=== PATIENT | female | born 2000 | race Caucasian/White ===

== ENCOUNTER 2024-06-02 09:31 | Outpatient (OUT) | payer OTHER, SELFPAY ==
--- NOTE | 2024-06-02 09:34 | US_ITS ---
[address] [address] Patient Name: SORAIDA VALENCIA MRN: [id number] date: 2000 Sex: F Assigned Patient Location: [facility] Current Patient Location: [facility] Accession/Order Number: [id number] Exam Date: 06/02/2024 09:34 Report Date: 06/02/2024 11:25 At the request of: SARAH PEREIRA Procedure: US OB transvaginal EXAMINATION: US OB transvaginal HISTORY: MISSED MENSES COMPARISON: No relevant comparison available. FINDINGS: Dowd intrauterine gestation Gestational sac: 3.41 cm, 8 weeks 4 days CRL: 2.28 cm, 9 weeks 0 days Yolk sac: 4.5 mm Cervix: Closed, 3.4 cm The uterus is normal, anteverted, anteflexed The right ovary is normal measuring 2.5 x 1.5 x 2.9 cm. Normal color Doppler flow The left ovary is normal measuring 2.6 x 1.6 x 2.6 cm. Normal color Doppler flow Clinical age: 8 weeks 5 days Clinical KELLEY: 01/07/2025 Ultrasound age: 9 weeks 0 days Ultrasound KELLEY: 01/05/2025 US/US OB transvaginal IMPRESSION: Viable dowd intrauterine gestation measuring 9 weeks 0 days Electronically authenticated by: JIE JERNIGAN Date: 06/02/2024 11:25
== END 2024-06-02 09:32 | disposition home or self-care (01) ==
LOC: NOMS 09:31
PROVIDERS: PCP Family Medicine; Visit Provider Obstetrics & Gynecology
DX: Z34.91 Encounter for supervision of normal pregnancy, unspecified, first trimester (principal); Z3A.09 9 weeks gestation of pregnancy; N92.6 Irregular menstruation, unspecified
CPT/HCPCS: 76817

== ENCOUNTER 2024-07-11 16:25 | Outpatient (OUT) | payer OTHER, SELFPAY ==
--- OUTSIDE RECORDS SUMMARY | 2024-07-11 16:39 | XMS_ITS | CCD ---
Author Organization 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 Name Role Phone DR GIBSON GONZALES Attending Unavailable DR GIBSON GONZALES Consulting Unavailable DR GIBSON GONZALES Admitting Unavailable Cristina Selby Unavailable SARAH PERERIA Attending Unavailable Medications Current Medications Medication Drug Class(es) Dates Sig (Normalized) Sig (Original) amoxicillin 500 mg oral capsule (1 source) Penicillin-class Antibacterial Start: 02-28-2024 take 500 mg by mouth twice daily Amoxicillin Active 500 MG PO Twice daily 30 07February 28, 2024 12:00am dextromethorphan hydrobromide 15 mg / guaiFENesin 400 mg / pseudoephedrine hydrochloride 60 mg oral tablet (1 source) alpha-Adrenergic Agonist, Uncompetitive X-vqtlen-M-aspartat e Receptor Antagonist, Sigma-1 Agonist Start: 07-01-2023 take 1 tablet by mouth every six hours as needed for cough Capmist DM 60-15-400 MG 1 tablet Orally q6hrs prn congestion/cough for 7 days Jun, Active L Norgest/E.Estradiol-E. Estrad (Simpesse) 0.15 mg-30 mcg (84)/10 mcg (7) tablets,dose pack,3 month (1 source) Start: 02-28-2024 take 1 tablet by mouth once daily L Norgest/E.Estrad iol-E.Estrad (Simpesse) 0.15 mg-30 mcg (84)/10 mcg (7) tablets,dose pack,3 month Active 1 TAB PO Daily February 28, 2024 12:00am Problems Active Problems Problem Classification Problem Date Documented Da te Episodic/Chronic Gastrointestinal hemorrhage (1 source) Hematochezia; Translations: [Melena] Episodic Other upper respiratory infections (6 sources) Acute upper respiratory infection, unspecified; Translations: [Acute pharyngitis, unspecified] Onset: 08-21-2021 Episodic Past or Other Problems Problem Classification Problem Date Documented Da te Episodic/Chronic Unclassified (1 source) Suspected COVID-19 virus infection Z20.822 Results Test Name Value Interpretation Reference Range Facility No Panel InformationOrdered By: Connie Marmolejo on 02-28-2024 Quick Strep (POC) [facility] COVID/FLU RT-PCRon 3 SARS-CoV-2 (COVID-19) RNA STEVE+probe Ql (Unsp spec) Negative [facility] Other COVID/FLU RT-PCR Negative [facility] alike Other Quick Strepon 07-01-2023 S. pyogenes Org specific cx Ql (Throat) Negative [facility] Other Quick Strep [facility] Other RESPIRATORY PANEL PLUSon Adenovirus Not detected Normal NOT DETECTED [facility] Comment on above: Performed By: #### R SPLUS #### [facility] [address] [place] [address] Dr. Pedro Luis Luis B. Parapertusis Not detected Normal NOT DETECTED [facility] Comment on above: Performed By: #### R SPLUS #### [facility] [address] [place] [address] Dr. Pedro Luis Talbot. Pertussis Not detected Normal NOT DETECTED [facility] Comment on above: Performed By: #### R SPLUS #### [facility] [address] [place] [address] Dr. Pedro Luis Luis Chlamydia Pneumoniae Not detected Normal NOT DETECTED [facility] Comment on above: Performed By: #### R SPLUS #### [facility] [address] [place] [address] Dr. Pedro Luis Luis Coronavirus 229E Not detected Normal NOT DETECTED [facility] Comment on above: Performed By: #### R SPLUS #### [facility] [address] [place] [address] Dr. Pedro Luis Luis Coronavirus HKU1 Not detected Normal NOT DETECTED [facility] Comment on above: Performed By: #### R SPLUS #### [facility] [address] [address] [address] Pedro Luis Luis Coronavirus NL63 Not detected Normal NOT DETECTED [facility] Comment on above: Performed By: #### R SPLUS #### [facility] [address] [place] [address] Dr. Pedro Luis Luis Coronavirus OC43 Not detected Normal NOT DETECTED [facility] Comment on above: Performed By: #### R SPLUS #### [facility] [address] [place] [address] Dr. Pedro Luis Luis Influenza A H1 2009 Not detected Normal NOT DETECTED [facility] Comment on above: Performed By: #### R SPLUS #### [facility] [address] [place] [address] Dr. Pedro Luis Luis Influenza B Not detected Normal NOT DETECTED The [facility] Comment on above: Performed By: #### R SPLUS #### [facility] [address] [place] [address] Dr. Pedro Luis Luis Metapneumovirus Not detected Normal NOT DETECTED [facility] Comment on above: Performed By: #### R SPLUS #### [facility] [address] [place] [address] Dr. Pedro Luis Luis Mycoplas. Pneumoniae Not detected Normal NOT DETECTED [facility] Comment on above: Performed By: #### R SPLUS #### [facility] [address] [place] [address] Dr. Pedro Luis Luis Parainfluenza 1 Not detected Normal NOT DETECTED [facility] Comment on above: Performed By: #### R SPLUS #### [facility] [address] [place] [address] Dr. Pedro Luis Luis Parainfluenza 2 Not detected Normal NOT DETECTED [facility] Comment on above: Performed By: #### R SPLUS #### [facility] [address] [place] [address] Dr. Pedro Luis Luis Parainfluenza 3 Not detected Normal NOT DETECTED [facility] Comment on above: Performed By: #### R SPLUS #### [facility] [address] [place] [address] Dr. Pedro Luis Luis Parainfluenza 4 Not detected Normal NOT DETECTED [facility] Comment on above: Performed By: #### R SPLUS #### [facility] [address] [address] [address] Pedro Luis Luis Rhino/Enterovirus Not detected Normal NOT DETECTED [facility] Comment on above: Performed By: #### R SPLUS #### [facility] [address] [place] [address] Dr. Pedro Luis Luis RP2 Header 1 RESPIRATORY PANEL: VIRUSES Normal [facility] Comment on above: Performed By: #### R SPLUS #### [facility] [address] [place] [address] Dr. Pedro Luis Luis RP2 Header 2 RESPIRATORY PANEL: BACTERIA Normal [facility] Comment on above: Performed By: #### R SPLUS #### [facility] [address] [place] [address] Dr. Pedro Luis Luis RSV Not detected Normal NOT DETECTED [facility] Comment on above: Performed By: #### R SPLUS #### [facility] [address] [place] [address] Dr. Pedro Luis Luis SARS-CoV-2 (COVID-19) RNA STEVE+probe Ql (Unsp spec) Not detected Normal NOT DETECTED [facility] Comment on above: Performed By: #### R SPLUS #### [facility] [address] [place] [address] Dr. 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 HPI Staff Patient 21 yo female presents via telehealth with bronchitis Symptoms started- Wednesday Headache- yes Body aches- yes wednesday Earache- no Runny/stuffy nose- stuffy nose Problem with Smell- no Problem with Taste- no Sore throat- yes- no voice Cough- yes Scratchy tickly throat- no Chest symptoms- no BUCIO- SOB when talking alot due to no voice Orthopnea- no Lung Hx asthma, bronchitis, chest colds- exercise induced asthma Fever/chills- no GI symptoms-no COVID exposure- NO Pt took COVID test- negative Vaccinated- yes- pfizer today Treatment- sinus medication History of Present Illness Pt presents today for a video visit with symptoms of cough, headache, stuff nose, loss of voice, sore throat that started Wednesday. Pt took at home covid test today which was negative. Pt has been using generic OTC sinus medication for symptom relief. Pt denies known covid exposure, recent travel. Pt is currently vaccinated. Denies chest pain, fevers, signs of dehydration. Review of Systems Fatigue: no Body aches: no Chills: no Fever: no MARI: yes Nasal congestion: yes Rhinorrhea: yes Cough: yes, dry SOB: no Wheezing: no Sore throat: yes Ear pain: no Ear drainage: no Loss of taste or smell: no Nausea: no Vomiting: no Diarrhea: no Current or former smoker: no Underlying health conditions: no Known Covid exposure: no Physical Exam Vitals & Measurements HT: 169.0 cm HT: 169 cm WT: 68.4 kg WT: 68.4 kg BMI: 23.95 General: Well developed, well nourished, in no acute distress during video visit Eyes: sclera and conjunctiva clear Nose: congestion noted Lungs: Normal respiratory effort, cough noted with deep breaths Mouth: Mucous membranes moist. Skin: No rashes, ulcerations, or suspicious lesions on visible skin Mental Status: Alert and oriented x3. Normal mood and affect Assessment/Plan 1. Acute nasopharyngitis (common cold) (J00: Acute nasopharyngitis [common cold]) Discussed exam and hx are consistent with viral illness. Advised of typical duration. Discussed antibiotics unfortunately do not treat viral illnesses, it will take time to run course- usually 7-14 days. Fluids/rest encouraged, PRN tylenol/ibuprofen for any pain, cool mist humidification, throat lozenges, salt water gargles as needed. May use rx of [place] for symptomatic tx. Follow up with PCP if not improving over next 7 days or significantly worsening symptoms. Parent verbalized understanding and is agreeable with tx plan. This visit was conducted via two-way, real-time interactive video communications from my office using Ansible due to the restrictions of the COVID-19 pandemic. No physical exam was conducted other than those areas of the body visible to telecommunications with the patient located at [address] [place] [phone], with spouse in attendance. If it is determined that the patient should be evaluated in the clinic, the patient will be directed to the appropriate clinic or venue. The patient or their guardian verbally consented to this visit. Total time spent preparing the chart, conducting the encounter with the patient and family, and time spent documenting, reviewing, and ordering tests was 10 minutes. Ordered: dextromethorphan-pyri ria, 20 mL, Oral, q8hr for 5 day(s), 300 mL, Refill(s) 0, [facility] #72, 169, cm, 08/20/21 17:56:00 EST, Height/Length Dosing, 68.4, kg, 08/20/21 17:56:00 EST, Weight Dosing 2. Cough (R05.9: Cough, unspecified) See above treatment plan Ordered: dextromethorphan-pyri ria, 20 mL, Oral, q8hr for 5 day(s), 300 mL, Refill(s) 0, [facility] #72, 169, cm, 08/20/21 17:56:00 EST, Height/Length Dosing, 68.4, kg, 08/20/21 17:56:00 EST, Weight Dosing Follow-up With When Contact Information Aydee Munoz, MARCELL Only if needed Additional Instructions: Patient Education Cool Mist Vaporizer Problem List/Past Medical History Ongoing No chronic problems Historical No qualifying data Medications [place] DM 7.5 mg-7.5 mg/5 mL oral liquid, 20 mL, Oral, q8hr Allergies No Known Allergies No Known Medication Allergies Social History Tobacco Never (less than 100 in lifetime) Tobacco Use:. Never Smokeless Tobacco Use:., 08/20/2021 [facility] Comment on above: Result Comment: Elec tronically Signed By: Aydee Munoz\.br\Date and Time Signed: 08/20/21 18:15 EST Patient Educationon 08-20-20 Patient Education Pulmonary Medicine Cool Mist Vaporizer A cool mist vaporizer is a device that releases a cool mist into the air. If you have a cough or a cold, using a vaporizer may help relieve your symptoms. The mist adds moisture to the air, which may help thin your mucus and make it less sticky. When your mucus is thin and less sticky, it easier for you to breathe and to cough up secretions. Do not use a vaporizer if you are allergic to mold. Follow these instructions at home: ? Follow the instructions that come with the vaporizer. ? Do not use anything other than distilled water in the vaporizer. ? Do not run the vaporizer all of the time. Doing that can cause mold or bacteria to grow in the vaporizer. ? Clean the vaporizer after each time that you use it. ? Clean and dry the vaporizer well before storing it. ? Stop using the vaporizer if your breathing symptoms get worse. This information is not intended to replace advice given to you by your health care provider. Make sure you discuss any questions you have with your health care provider. Document Released: 06/24/2005 Document Revised: 10/14/2017 Document Reviewed: 12/26/2016 [employer] Patient Education ? 2019 [employer]. [facility] Vital Signs Date Time Vital Sign Value Performing Clinician Facility 02-28-2024 16:23-0400 Body height 170.18 cm [facility] 02-28-2024 16:23-0400 Body mass index (BMI) [Ratio] 23.8 kg/m2 [facility] 02-28-2024 16:23-0400 Body temperature 98.5 [degF] [facility] 02-28-2024 16:23-0400 Body weight 68.94 kg [facility] 02-28-2024 16:23-0400 Diastolic blood pressure 64 mm[Hg] [facility] 02-28-2024 16:23-0400 Heart rate 82 /min [facility] 02-28-2024 16:23-0400 Respiratory rate 18 /min [facility] 02-28-2024 16:23-0400 SaO2% (BldA) [Mass fraction] 98 % [facility] 02-28-2024 16:23-0400 Systolic blood pressure 115 mm[Hg] [facility] 07-01-2023 09:35-0400 Body height 170.18 cm Cristina Selby Other [facility] Other 07-01-2023 09:35-0400 Body mass index (BMI) [Ratio] 26.47 kg/m2 Cristina Selby Other [facility] Other 07-01-2023 09:35-0400 Body temperature 98 [degF] Cristina Selby Other [facility] Other 07-01-2023 09:35-0400 Body weight 76.66 kg Cristina Selby Other [facility] Other 07-01-2023 09:35-0400 Respiratory rate 18 /min Cristina Selby Other [facility] Other 07-01-2023 09:35-0400 SaO2% (BldA) [Mass fraction] 98 % Cristina Selby Other [facility] Other Encounters Encounter Date Encounter Type Care Provider Facility Start: 07-03-2024 End: 07-03-2024 ambulatory SARAH KELLI Not Available Start: 06-02-2024 End: 06-02-2024 ambulatory SARAH KELLI Not Available Start: 02-28-2024 End: 02-28-2024 ambulatory [facility] Work Phone: Start: 02-28-2024 End: 02-28-2024 Patient encounter procedure [facility] Work Phone: Start: 07-01-2023 End: 07-01-2023 ambulatory Cristina Selby Other [facility] Other Start: 07-01-2023 Office outpatient ne w 20 minutes Cristina Selby [facility] Start: 08-21-2021 End: 08-21-[address] GIBSON GONZALES Facility:H1 Procedures Date Procedure Procedure Detail Performing Clinician Start: 02-28-2024 Quick Strep (POC) Payers Date Payer Category Payer Unknown [id number] 2000 Unknown [id number] 2000 Unknown [id number] 2000 Unknown [id number] 1959 Unknown [id number] Unknown Regular Insurance [id number] Unknown PROFEE MMO [id number] Social History Date Type Detail Facility Unknown if ever smoked [facility] Other Sex Assigned At Sex Assigned At Bir th [facility] Other Start: 02-28-2024 Tobacco smoking status NHIS Never smoked tobacco (finding) [facility] Start: 2000 Sex Assigned At Female F [facility] Evaluation note 07-01-2023 Note Date & Type Note Facility 07-01-2023 Evaluation note Encounter Date Diagnosis Assessment Notes Jun, Sore throat (ICD-10 - J02.9) Jun, Viral URI with cough (ICD-10 - J06.9) covid PCR neg Discussed with patient exam and history is consistent with viral upper respiratory infection. Discussed viral nature of illness and typical duration of 7 to 14 days. Advised antibiotics unfortunately do not treat viral illnesses. May use symptomatic treatment such as [facility] rx. May use Tylenol/ibuprofe n for any pain/fever. Follow-up with PCP if not improving over the next 7-10 days, sooner if significantly worsening symptoms. Jun, Suspected COVID-19 virus infection (ICD-10 - Z20.822) [facility] Other Evaluation note Note Date & Type Note Facility Evaluation note No assessment information availa [facility] Work Phone: Summary Purpose Family History No Family History Records FoundNo Family History Records FoundNo Family History Records Found Advance Directives No Advanced Directives Records Found Advance Directive Response Recorded Date/ Time Advance Directives No February 27 4:20pm Chief Complaint and Reason for Visit Chief Complaint sore throat Additional Source Comments INFORMATION SOURCE (unrecogn ized section and content) DATE CREATED AUTHOR 08/22/2021 [facility] DATE CREATED AUTHOR AUTHOR'S ORGANIZ ATION 08/27/2021 [facility] DATE CREATED AUTHOR AUTHOR'S ORGANIZ ATION 07/04/2024 [facility] EPIC REASON FOR VISIT (unrecogniz ed section and content) SORE THROAT, BODYACHE, CONGE STION Care Teams (unrecognized sec tion and content) Team Status: Active Member Role Status Dates Gibson Gonzales MD Primary Care Provider Active Team Status: Inactive Member Role Status Dates Gibson Gonzales MD Primary Care Provider Active S tart: February 28, 2024 End: February 28, 2024 Connie Marmolejo APRN Attending Provider Active S tart: February 28, 2024 End: February 28, 2024 Goals (unrecognized section and content) Goals may be documented in a n alternate section FOR RECORDS PERTAINING TO PATIENTS WHO ARE OR HAVE BEEN ENROLLED IN A CHEMICAL DEPENDENCY/SUBSTANCEABUSE PROGRAM, SOME INFORMATION MAY BE OMITTED. This clinical summary was aggregated from multiple sources. Caution should be exercised in using it in the provision of clinical care. This summary normalizes information from multiple sources, and as a consequence, information in this document may materially change the coding, format and clinical context of patient data. In addition, data may be omitted in some cases. CLINICAL DECISIONS SHOULD BE BASED ON THE PRIMARY CLINICAL RECORDS. [facility] [email or web address] [facility]. provides no warranty or guarantee of the accuracy or completeness of information in this document.
[2024-07-11 17:15] LABS: Basophils Absolute Auto 0.1 10^3/uL (0.0-0.1); Basophils Percent Auto 0.7 % (0.2-2.0); Eosinophils Absolute Auto 0.2 10^3/uL (0.0-0.7); Eosinophils Percent Auto 2.1 % (0.9-7.0); Hematocrit 36.7 % (36.0-48.0); Hemoglobin 12.6 g/dL (12.0-16.0); Immature Granulocytes Abs Auto 0.04 10^3/uL (0.00-0.03); Immature Granulocytes Pct Auto 0.4 % (0.0-0.5); Lymphocytes Percent Auto 18.5 % (20.5-60.0); Mean Corpuscular HGB Conc 34.3 g/dL (29.9-35.2); Mean Corpuscular Hemoglobin 29.8 pg (26.7-34.0); Mean Corpuscular Volume 86.8 fL (81.0-99.0); Mean Platelet Volume 10.7 fL (9.5-13.5); Monocytes Absolute Auto 0.6 10^3/uL (0.3-0.8); Monocytes Percent Auto 5.9 % (1.7-12.0); Neutrophils Absolute Auto 7.8 10^3/uL (1.4-6.5); Neutrophils Percent Auto 72.4 % (43.0-75.0); Platelet Count 226 10^3/uL (150-450); Red Blood Count 4.23 10^6/uL (4.20-5.40); Red Cell Distribution Width 12.7 % (11.0-15.0); White Blood Count 10.7 10^3/uL (4.0-11.0)
[2024-07-11 17:29] LABS: Estimated Average Glucose 91 mg/dL; Glycohemoglobin A1C 4.8 % (4.5-6.2)
[2024-07-13 06:10] LABS: HBsAg Screen Negative (Negative); HCV Ab Non Reactive (Non Reactive); HIV Ab/p24 Ag Screen Non Reactive (Non Reactive); Rubella Antibodies, IgG 1.44 index (Immune >0.99)
[2024-07-13 12:10] LABS: Rapid Plasma Reagin, Quant Non Reactive titer (NonRea<1:1)
== END 2024-07-11 16:26 | disposition home or self-care (01) ==
PROVIDERS: PCP Family Medicine; Visit Provider Obstetrics & Gynecology
DX: N92.6 Irregular menstruation, unspecified (principal)
CPT/HCPCS: 36415; 83036; 85025; 86592; 86762; 86803; 86850; 86900; 86901; 87086; 87340; 87389

== ENCOUNTER 2024-08-02 19:41 | Outpatient (REF) | payer OTHER, SELFPAY ==
--- OUTSIDE RECORDS SUMMARY | 2024-08-02 19:44 | XMS_ITS | CCD ---
Author Organization [facility] Care Team Providers Care Cloth Spreader Name Role Phone DR GIBSON GONZALES Attending Unavailable CHRISTIAN, DR SAUCEDA Consulting Unavailable DR GIBSON GONZALES Admitting Unavailable Cristina Selby Unavailable SARAH ZHANG Attending Unavailable Gibson Gonzales MD Primary Care Provider [phone] Medications Current Medications Medication Drug Class(es) Dates Sig (Normalized) Sig (Original) amoxicillin 875 mg / clavulanate 125 mg oral tablet (1 source) Penicillin-class Antibacterial Start: 07-30-2024 take 1 tablet by mouth every twelve hours Amoxicillin-Pot Clavulanate Active 1 TAB PO Every 12 hours 30 07July 30, 2024 12:00am cetirizine hydrochloride 10 mg oral tablet (1 source) Histamine-1 Receptor Antagonist Start: 07-30-2024 take 1 tablet by mouth once daily Cetirizine (Zyrtec) 10 mg tablet Active 10 MG PO Daily July 30, 2024 12:00am dextromethorphan hydrobromide 15 mg / guaiFENesin 400 mg / pseudoephedrine hydrochloride 60 mg oral tablet (1 source) alpha-Adrenergic Agonist, Uncompetitive N-vgtbxu-B-aspartat e Receptor Antagonist, Sigma-1 Agonist Start: 07-01-2023 take 1 tablet by mouth every six hours as needed for cough Capmist DM 60-15-400 MG 1 tablet Orally q6hrs prn congestion/cough for 7 days Jun, Active Pnv #20-Byfo-Ykatw Acid-Omega3 (1 source) Start: 07-30-2024 Pnv #68-Rjwg-Vzcuc Acid-Omega3 Active CAP PO July 30, 2024 12:00am Completed/Discontinued Medications Medication Drug Class(es) Dates Sig (Normalized) Sig (Original) amoxicillin 500 mg oral capsule (2 sources) Penicillin-class Antibacterial Start: 02-28-2024 End: 07-30-2024 take 500 mg by mouth twice daily Amoxicillin Discontinued 500 MG PO Twice daily 30 07February 28, 2024 12:00am July 30, 2024 10:16am L Norgest/E.Estradio l-E.Estrad (Simpesse) 0.15 mg-30 mcg (84)/10 mcg (7) tablets,dose pack,3 month (2 sources) Start: 02-28-2024 End: 07-30-2024 take 1 tablet by mouth once daily L Norgest/E.Estradio l-E.Estrad (Simpesse) 0.15 mg-30 mcg (84)/10 mcg (7) tablets,dose pack,3 month Discontinued 1 TAB PO Daily February 28, 2024 12:00am July 30, 2024 10:16am Start: 02-28-2024 take 1 tablet by josh th once daily L Norgest/E.Estradiol-E.Estrad (Simpesse ) 0.15 mg-30 mcg (84)/10 mcg (7) tablets,dose pack,3 month Active 1 TAB PO Daily February 28, 2024 12:00am Problems Active Problems Problem Classification Problem Date Documented Da te Episodic/Chronic Gastrointestinal hemorrhage (1 source) Hematochezia; Translations: [Melena] Episodic Menstrual disorders (1 source) Irregular periods; Translations: [Irregular menstruation, unspecified] Onset: 04-07-2023 04-07-2023 Chronic Other female genital disorders (1 source) Abnormal uterine bleeding; Translations: [Abnormal uterine and vaginal bleeding, unspecified] Onset: 04-07-2023 04-07-2023 Chronic Other upper respiratory disease (1 source) Seasonal allergic rhinitis; Translations: [Other seasonal allergic rhinitis] Onset: 04-07-2023 04-07-2023 Chronic Other upper respiratory infections (1 source) Sinusitis; Translations: [Chronic sinusitis, unspecified] Onset: 04-07-2023 04-07-2023 Chronic Other upper respiratory infections (9 sources) Acute upper respiratory infection, unspecified; Translations: [Acute pharyngitis, unspecified] Onset: 08-21-2021 Episodic Past or Other Problems Problem Classification Problem Date Documented Da te Episodic/Chronic Unclassified (1 source) Suspected COVID-19 virus infection Z20.822 Results Test Name Value Interpretation Reference Range Facility ALL CBC WITH AUTO DIFFon BASOPHILS ABSOLUTE AUTO 0.1 [facility] Basophils/100 WBC (Bld) 0.7 % 0.2 - 2.0 % [facility] Eosinophils/100 WBC (Bld) 2.1 % 0.9 - 7.0 % [facility] Erythrocyte distribution width (RBC) [Ratio] 12.7 % 11.0 - 15.0 % [facility] Hematocrit (Bld) [Volume fraction] 36.7 % 36.0 - 48.0 % [facility] Hemoglobin (Bld) [Mass/Vol] 12.6 g/dL 12.0 - 16.0 g/dL [facility] IMMATURE GRANULOCYTES ABS AUTO 0.04 High [facility] Immature granulocytes/100 WBC (Bld) 0.4 % 0.0 - 0.5 % [facility] Interpretation and review of laboratory results Abnormal [facility] LYMPHOCYTES ABSOLUTE AUTO 2.0 [facility] Lymphocytes/100 WBC (Bld) 18.5 % Low 20.5 - 60.0 % [facility] MCH (RBC) [Entitic mass] 29.8 pg 26.7 - 34.0 pg [facility] MCHC (RBC) [Mass/Vol] 34.3 g/dL 29.9 - 35.2 g/dL [facility] MCV (RBC) [Entitic vol] 86.8 fL 81.0 - 99.0 fL [facility] MONOCYTES ABSOLUTE AUTO 0.6 [facility] Monocytes/100 WBC (Bld) 5.9 % 1.7 - 12.0 % [facility] NEUTROPHILS ABSOLUTE AUTO 7.8 High [facility] Neutrophils/100 WBC (Bld) 72.4 % 43.0 - 75.0 % [facility] Platelet mean volume (Bld) [Entitic vol] 10.7 fL 9.5 - 13.5 fL [facility] TBH EO # 0.2 [facility] PLT 226 [facility] RBC 4.23 [facility] WBC 10.7 [facility] No Panel InformationOrdered By: Connie Marmolejo on 02-28-2024 Quick Strep (POC) [facility] COVID/FLU RT-PCRon 3 SARS-CoV-2 (COVID-19) RNA STEVE+probe Ql (Unsp spec) Negative [employer] Other COVID/FLU RT-PCR Negative [facility] [employer] Other Quick Strepon 07-01-2023 S. pyogenes Org specific cx Ql (Throat) Negative [employer] Other Quick Strep [employer] [facility] [employer] Other RESPIRATORY PANEL PLUSon Adenovirus Not detected Normal NOT DETECTED [facility] Comment on above: Performed By: #### R SPLUS #### [facility] [address] [place] [address] Dr. Pedro Luis Talbot. Parapertusis Not detected Normal NOT DETECTED [facility] Comment on above: Performed By: #### R SPLUS #### [facility] [address] [place] [address] Dr. Pedro Luis Talbot. Pertussis Not detected Normal NOT DETECTED [facility] Comment on above: Performed By: #### R SPLUS #### [facility] [address] [place] [address] Dr. Pedro Luis Luis Chlamydia Pneumoniae Not detected Normal NOT DETECTED [facility] Comment on above: Performed By: #### R SPLUS #### [facility] [address] [place] [address] Dr. Pedro Luis Luis Coronavirus 229E Not detected Normal NOT DETECTED [facility] Comment on above: Performed By: #### R SPLUS #### [facility] [address] [place] [address] Dr. Pedro Luis Luis Coronavirus HKU1 Not detected Normal NOT DETECTED [facility] Comment on above: Performed By: #### R SPLUS #### [facility] [address] [place] [address] Dr. Pedro Luis Luis Coronavirus NL63 Not detected Normal NOT DETECTED [facility] Comment on above: Performed By: #### R SPLUS #### [facility] [address] [place] [address] Dr. Pedro Luis Luis Coronavirus OC43 Not detected Normal NOT DETECTED [facility] Comment on above: Performed By: #### R SPLUS #### [facility] [address] [address] [address] Pedro Luis Luis Influenza A H1 2009 Not detected Normal NOT DETECTED [facility] Comment on above: Performed By: #### R SPLUS #### [facility] [address] [place] [address] Dr. Pedro Luis Luis Influenza B Not detected Normal NOT DETECTED [facility] Comment on above: Performed By: #### R SPLUS #### [facility] [address] [address] [address] Pedro Luis Luis Metapneumovirus Not detected Normal NOT DETECTED [facility] Comment on above: Performed By: #### R SPLUS #### [facility] [address] [place] [address] Dr. Pedro Luis Luis Mycoplas. Pneumoniae Not detected Normal NOT DETECTED [facility] Comment on above: Performed By: #### R SPLUS #### [facility] [address] [place] [address] Dr. Pedro Luis Luis Parainfluenza 1 Not detected Normal NOT DETECTED [facility] Comment on above: Performed By: #### R SPLUS #### [facility] [address] [place] [address] Dr. Pedro Luis Luis Parainfluenza 2 Not detected Normal NOT DETECTED [facility] Comment on above: Performed By: #### R SPLUS #### [facility] [address] [place] [address] Dr. Pedro Luis Luis Parainfluenza 3 Not detected Normal NOT DETECTED [facility] Comment on above: Performed By: #### R SPLUS #### [facility] [address] [place] [address] Dr. Pedro Luis Luis Parainfluenza 4 Not detected Normal NOT DETECTED [facility] Comment on above: Performed By: #### R SPLUS #### [facility] [address] [place] [address] Dr. Pedro Luis Luis Rhino/Enterovirus Not detected Normal NOT DETECTED [facility] Comment on above: Performed By: #### R SPLUS #### [facility] [address] [address] [address] Pedro Luis Luis RP2 Header 1 RESPIRATORY PANEL: VIRUSES Normal [facility] Comment on above: Performed By: #### R SPLUS #### [facility] [address] [address] [address] Pedro Luis Luis RP2 Header 2 RESPIRATORY PANEL: BACTERIA Normal [facility] Comment on above: Performed By: #### R SPLUS #### [facility] [address] [address] [address] Pedro Luis Luis RSV Not detected Normal NOT DETECTED [facility] Comment on above: Performed By: #### R SPLUS #### [facility] [address] [place] [address] Dr. Pedro Luis Luis SARS-CoV-2 (COVID-19) RNA STEVE+probe Ql (Unsp spec) Not detected Normal NOT DETECTED [facility] Comment on above: Performed By: #### R SPLUS #### [facility] [address] [place] [address] Dr. Pedro Luis Luis Family Medicine Video Visit - Telehealthon 08-20-2021 Family Medicine Video Visit - Telehealth Chief Complaint [employer]CH[employer]ENTICE [employer]ENGRAVING cough, congestion, sore throat- no voice HPI [...] gargles as needed. May use rx of [place] for symptomatic tx. Follow up with PCP if not improving over next 7 days or significantly worsening symptoms. Parent verbalized understanding and is agreeable with tx plan. This visit was conducted via two-way, real-time interactive video communications from my office using [employer] due to the restrictions of the COVID-19 pandemic. No physical exam was conducted other than those areas of the body visible to telecommunications with the patient located at [address] [place] [phone], with spouse in attendance. If it is [...] for 5 day(s), 300 mL, Refill(s) 0, [employer] #72, 169, cm, 08/20/21 17:56:00 EST, Height/Length Dosing, 68.4, kg, 08/20/21 17:56:00 EST, Weight Dosing 2. Cough (R05.9: Cough, unspecified) See above treatment plan Ordered: dextromethorphan-pyri ria, 20 mL, Oral, q8hr for 5 day(s), 300 mL, Refill(s) 0, [employer] #72, 169, cm, 08/20/21 17:56:00 EST, Height/Length Dosing, 68.4, kg, 08/20/21 17:56:00 EST, Weight Dosing Follow-up With When Contact Information Aydee Munoz, FAM Only if needed Additional Instructions: Patient Education Cool Mist Vaporizer Problem List/Past Medical History Ongoing No chronic problems Historical No qualifying data Medications [place] DM 7.5 mg-7.5 mg/5 mL oral liquid, 20 mL, Oral, q8hr Allergies No Known Allergies No Known Medication Allergies Social History Tobacco Never (less than 100 in lifetime) Tobacco Use:. Never Smokeless Tobacco Use:., 08/20/2021 [facility] Comment on above: Result Comment: Elec tronically [...] 06/24/2005 Document Revised: 10/14/2017 Document Reviewed: 12/26/2016 [employer] Patient Education ? [facility]. [facility] Vital Signs Date Time Vital Sign Value Performing Clinician Facility 07-30-2024 10:08-0400 Body height 170.18 cm [facility] 07-30-2024 10:08-0400 Body mass index (BMI) [Ratio] 26.2 kg/m2 [facility] 07-30-2024 10:08-0400 Body temperature 98.7 [degF] [facility] 07-30-2024 10:08-0400 Body weight 75.74 kg [facility] 07-30-2024 10:08-0400 Diastolic blood pressure 69 mm[Hg] [facility] 07-30-2024 10:08-0400 Heart rate 95 /min [facility] 07-30-2024 10:08-0400 Respiratory rate 16 /min [facility] 07-30-2024 10:08-0400 SaO2% (BldA) [Mass fraction] 98 % [facility] 07-30-2024 10:08-0400 Systolic blood pressure 109 mm[Hg] [facility] 02-28-2024 16:23-0400 Body height 170.18 cm [facility] 02-28-2024 16:23-0400 Body mass index (BMI) [Ratio] 23.8 kg/m2 [facility] 02-28-2024 16:23-0400 Body temperature 98.5 [degF] [facility] 02-28-2024 16:23-0400 Body weight 68.94 kg [facility] 02-28-2024 16:23-0400 Diastolic blood pressure 64 mm[Hg] [facility] 02-28-2024 16:23-0400 Heart rate 82 /min [facility] 02-28-2024 16:23-0400 Respiratory rate 18 /min [facility] 02-28-2024 16:23-0400 SaO2% (BldA) [Mass fraction] 98 % [facility] 02-28-2024 16:23-0400 Systolic blood pressure 115 mm[Hg] [facility] 07-01-2023 09:35-0400 Body height 170.18 cm Cristina Selby Other [employer] [facility] [employer] Other 07-01-2023 09:35-0400 Body mass index (BMI) [Ratio] 26.47 kg/m2 Cristina Selby Other [employer] Other 07-01-2023 09:35-0400 Body temperature 98 [degF] Cristina Selby Other [employer] Other 07-01-2023 09:35-0400 Body weight 76.66 kg Cristina Selby Other [employer] Other 07-01-2023 09:35-0400 Respiratory rate 18 /min Cristina Selby Other [employer] Other 07-01-2023 09:35-0400 SaO2% (BldA) [Mass fraction] 98 % Cristina Selby Other [employer] Other Encounters Encounter Date Encounter Type Care Provider Facility Start: 07-30-2024 End: 07-30-2024 ambulatory [facility] Work Phone: Start: 07-30-2024 End: 07-30-2024 Patient encounter procedure [facility] Work Phone: Start: 07-11-2024 End: 07-12-2024 [facility] Result Encounter Generic External Data Provider [facility] External [facility] Unsolicited Start: 07-11-2024 End: 07-12-2024 [facility] Result Encounter Generic External Data Provider [facility] External Department Unsolicited Start: 07-03-2024 End: 07-03-2024 ambulatory SARAH KELLI Not Available Start: 06-02-2024 End: 06-02-2024 ambulatory SARAH KELLI Not Available Start: 02-28-2024 End: 02-28-2024 ambulatory [facility] Work Phone: Start: 02-28-2024 End: 02-28-2024 Patient encounter procedure [facility] Work Phone: Start: 07-01-2023 End: 07-01-2023 ambulatory Cristina Selby Other [facility] [employer] Other Start: 07-01-2023 Office outpatient ne w 20 minutes Cristina Selby [facility] Start: 08-21-2021 End: 08-21-[address] GIBSON GONZALES Facility: Procedures Date Procedure Procedure Detail Performing Clinician Start: 07-11-2024 ALL CBC WITH AUTO DIFF Sarah Zhang DO Work Phone: Start: 02-28-2024 Quick Strep (POC) Plan of Treatment Date Care Activity Detail Author Start: 08-02-2024 End: 08-02-2024 Patient encounter procedure 08/02/2024 3:20 PM EDT Office Visit [facility] [address] [place] [address] Sarah Zhang, DO [address] [place], [place] [id number] [facility] Start: 06-11-2024 Influenza vaccination Influenza Vacc ine (#1) [facility] Immunizations Immunization Date Immunization Notes Care Provider Fa cility 07-14-2021 influenza, injectabl e, quadrivalent, preservative free Generic Provider [facility] 07-14-2021 influenza virus vacc ine, unspecified formulation Generic Provider [facility] 08-12-2020 influenza, injectabl e, quadrivalent, preservative free Generic Provider [facility] 12-04-2019 Influenza, injectabl e, Madin Lauren Canine Kidney, preservative free, quadrivalent Generic Provider [facility] 08-17-2018 seasonal influenza, intradermal, preservative free Generic Provider [facility] 08-04-2017 seasonal influenza, intradermal, preservative free Generic Provider [facility] 04-08-2017 meningococcal oligosaccharide (groups A, C, Y and W-135) diphtheria toxoid conjugate vaccine (MCV4O) Generic Provider [facility] 07-20-2016 influenza, injectabl e, quadrivalent, preservative free [facility] 07-24-2015 influenza, seasonal, injectable, preservative free Generic Provider [facility] 07-23-2015 influenza, injectabl e, quadrivalent, preservative free Generic [facility] 09-08-2012 influenza, seasonal, injectable, preservative free Generic Provider [facility] 05-16-2012 tetanus toxoid, redu eugenio diphtheria toxoid, and acellular pertussis vaccine, adsorbed Generic Provider [facility] 02-02-2012 human papilloma viru s vaccine, quadrivalent Generic Provider [facility] 10-29-2011 human papilloma viru s vaccine, quadrivalent Generic Provider [facility] 07-01-2011 human papilloma viru s vaccine, quadrivalent Generic Provider [facility] 08-25-2010 influenza virus vacc ine, whole virus Generic Provider [facility] 06-03-2005 diphtheria, tetanus toxoids and acellular pertussis vaccine, unspecified formulation Generic Provider [facility] 06-03-2005 measles, mumps and r ubella virus vaccine Generic Provider [facility] 06-03-2005 poliovirus vaccine, inactivated Generic Provider [facility] 12-06-2000 diphtheria, tetanus toxoids and acellular pertussis vaccine, unspecified formulation Generic Provider [facility] 12-06-2000 haemophilus influenz ae type b vaccine, conjugate unspecified formulation Generic Provider [facility] 12-06-2000 measles, mumps and r ubella virus vaccine Generic Provider [facility] 12-06-2000 poliovirus vaccine, inactivated Generic Provider [facility] 1999 diphtheria, tetanus toxoids and acellular pertussis vaccine, unspecified formulation [facility] 1999 haemophilus influenz ae type b vaccine, conjugate unspecified formulation Generic Provider [facility] 1999 hepatitis B vaccine, pediatric or pediatric/adolescent dosage Generic Provider [facility] are 1999 poliovirus vaccine, inactivated Generic Provider [facility] 1999 diphtheria, tetanus toxoids and acellular pertussis vaccine, unspecified formulation Generic Provider [facility] 1999 haemophilus influenz ae type b vaccine, conjugate unspecified formulation Generic Provider [facility] 1999 hepatitis B vaccine, pediatric or pediatric/adolescent dosage Generic Provider [facility] are 1999 poliovirus vaccine, inactivated Generic Provider [facility] 1999 diphtheria, tetanus toxoids and acellular pertussis vaccine, unspecified formulation Generic Provider [facility] 1999 haemophilus influenz ae type b vaccine, conjugate unspecified formulation Generic Provider [facility] 1999 hepatitis B vaccine, pediatric or pediatric/adolescent dosage Generic Provider [facility] are 1999 poliovirus vaccine, inactivated Generic Provider [facility] Payers Date Payer Category Payer Unknown [id number] 2023 Unknown [id number] 1999 Unknown [id number] [id number] 1999 Unknown [id number] 1999 Unknown [id number] 1959 Unknown [id number] Unknown [facility] [id number] Social History Date Type Detail Facility Unknown if ever smoked [employer] Other Start: 08-17-2023 [address] [facility] [employer] Other Start: 02-28-2024 End: 07-30-2024 Tobacco smoking status NHIS Never smoked tobacco (finding) [facility] Start: 2000 Sex Assigned At [facility] Start: 04-07-2023 Tobacco use and exposure Smokeless tobacco non-user [facility] Start: 07-03-2024 Alcoholic beverage intake Ex-drinker (finding) [facility] Start: 08-17-2023 History of Social function [facility] Start: 05-14-2023 Alcohol Comment Caffeine intak e: 1-2 cups per day [facility] Start: 04-16-2024 [facility] Start: 1999 Sex assigned at Not on file [facility] Evaluation note 07-01-2023 Note Date & Type [...] Suspected COVID-19 virus infection (ICD-10 - Z20.822) [employer] Other Evaluation note Note Date & Type Note Facility Evaluation note No assessment information availa ble [facility] Work Phone: Evaluation note Note Date & Type Note Facility Evaluation note Diagnosis Onset Date Acute sinusitis with symptom s greater than 10 days acute [facility] Work Phone: Summary Purpose Family History No Family History Records FoundNo Family History Records FoundNo Family History Records Found Advance Directives Advance Directive Response Recorded Date/ Time Advance Directives No February 27 4 4:20pm Chief Complaint and Reason for Visit Chief Complaint sore throat Chief Complaint chest congestion, co ugh- 17 wks preg Reason for Visit Acute sinusitis with symptoms greater than 10 days Additional Source Comments INFORMATION SOURCE (unrecogn ized section and content) DATE CREATED AUTHOR 08/22/2021 Deven Milligan [facility] DATE CREATED AUTHOR AUTHOR'S ORGANIZ ATION 08/27/2021 [facility] DATE CREATED AUTHOR AUTHOR'S ORGANIZ ATION 07/04/2024 [facility] EPIC REASON FOR VISIT (unrecogniz ed section and content) SORE THROAT, BODYACHE, CONGE STION Care Teams (unrecognized sec tion and content) Team Status: Active Member Role Status Dates Gibson Gonzales MD Primary Care Provider Active Team Status: Inactive Member Role Status Dates Gibson Gonzales MD Primary Care Provider Active S tart: February 28, 2024 End: February 28, 2024 Connie Marmoeljo APRN Attending Provider Active S tart: February 28, 2024 End: February 28, 2024 Cloth Spreader Relationship Specialty Start Date End Date Gibson Gonzales MD [address] [facility] [address] [place] [address] PCP - General Family Medicine 04/07/23 Team Status: Inactive Member Role Status Dates Gibson Gonzales MD Primary Care Provider Active S tart: July 30, 2024 End: July 30, 2024 Cristina Selby APRN Attending Provider Active Start: July 30, 2024 End: July 30, 2024 Goals (unrecognized section and content) Goals [...] BE BASED ON THE PRIMARY CLINICAL RECORDS. MEDL [employer] provides no warranty or guarantee of the accuracy or completeness of information in this document.
[2024-08-03 07:31] LABS: Amphetamine Screen Urine NEGATIVE (NEGATIVE); Barbiturates Screen Urine NEGATIVE (NEGATIVE); Benzodiazepines Screen Urine NEGATIVE (NEGATIVE); Buprenorphine Screen Urine NEGATIVE (NEGATIVE); Cannabinoid Screen Urine NEGATIVE (NEGATIVE); Cocaine Screen Urine NEGATIVE (NEGATIVE); Methadone Screen Urine NEGATIVE (NEGATIVE); Methamphetamines Screen Urine NEGATIVE (NEGATIVE); Opiate Screen Urine NEGATIVE (NEGATIVE); Oxycodone Screen Urine NEGATIVE (NEGATIVE); Phencyclidine Screen Urine NEGATIVE (NEGATIVE); Tricyclic Antidepressant Urine NEGATIVE (NEGATIVE)
== END 2024-08-02 19:42 | disposition home or self-care (01) ==
LOC: LAB 19:41
PROVIDERS: PCP Family Medicine; Visit Provider Obstetrics & Gynecology
DX: Z34.01 Encounter for supervision of normal first pregnancy, first trimester (principal); Z01.419 Encounter for gynecological examination (general) (routine) without abnormal findings
CPT/HCPCS: 80307; 88175

== ENCOUNTER 2024-08-21 16:51 | Outpatient (OUT) | payer OTHER, SELFPAY ==
--- NOTE | 2024-08-21 16:53 | US_ITS ---
[address] [address] Patient Name: SORAIDA VALENCIA MRN: [id number] date: 2000 Sex: F Assigned Patient Location: US Current Patient Location: Accession/Order Number: [id number] Exam Date: 08/21/2024 17:04 Report Date: 08/22/2024 07:49 At the request of: SARAH PEREIRA Procedure: US OB anatomy EXAMINATION: US OB anatomy, US OB cervical length HISTORY: SCREENING, , FOR ANATOMIC SURVEY Z36.89 COMPARISON: No relevant comparison available. TECHNIQUE: Transabdominal sonographic examination was performed for obstetrical and evaluation. FINDINGS: Number: 1 Heart Rate: 154.29 bpm H.B. /min Amniotic Fluid Volume: Subjectively normal position: Breech presentation, variable lie Placental Location: Anterior, grade 0. The placental edge is 5.9 cm from the internal os Cervix Length: 4.4 cm, closed Normal anatomy: Lateral ventricles, cerebellum, posterior fossa, nose, lips, orbits, four-chamber heart, RVOT, LVOT, diaphragm, stomach, kidneys, abdominal cord insertion, bladder, umbilical arteries, three-vessel cord, extremities Suboptimal visualization: Spine BIOMETRY: BPD: 5.09 cm; 21 weeks 3 days; 91.50 % HC: 18.81 cm; 21 weeks 1 day; 83 % AC: 16.29 cm; 21 weeks 3 days; 81.60 % FL: 3.12 cm; 19 weeks 5 days; 26.60 % EFW:370.15 g; 75.70 %, 13 ounces FL/AC: 19.18 FL/BPD: 61.36 HC/AC: 1.16 GESTATIONAL AGE: Age by EDC: 20 weeks 1 day KELLEY by EDC: 2025-01-07 Age by current US: 21 weeks 0 days KELLEY by current US: 2025-01-01 US/US OB anatomy IMPRESSION: Normal anatomy scan Closed cervix measuring 4.4 cm in length *Reference: [facility] Practice Guideline for the performance of Obstetric Ultrasound Examinations, July 11, 2007. Electronically authenticated by: JIE JERNIGAN Date: 08/22/2024 07:49
--- NOTE | 2024-08-21 16:53 | US_ITS ---
[address] [address] Patient Name: SORAIDA VALENCIA MRN: [id number] date: 2000 Sex: F Assigned Patient Location: US Current Patient Location: Accession/Order Number: [id number] Exam Date: 08/21/2024 17:04 Report Date: 08/22/2024 07:49 At the request of: SARAH PEREIRA Procedure: US OB cervical length EXAMINATION: US OB anatomy, US OB cervical length HISTORY: SCREENING, , FOR ANATOMIC SURVEY Z36.89 COMPARISON: No relevant comparison available. TECHNIQUE: Transabdominal sonographic examination was performed for obstetrical and evaluation. FINDINGS: Number: 1 Heart Rate: 154.29 bpm H.B. /min Amniotic Fluid Volume: Subjectively normal position: Breech presentation, variable lie Placental Location: Anterior, grade 0. The placental edge is 5.9 cm from the internal os Cervix Length: 4.4 cm, closed Normal anatomy: Lateral ventricles, cerebellum, posterior fossa, nose, lips, orbits, four-chamber heart, RVOT, LVOT, diaphragm, stomach, kidneys, abdominal cord insertion, bladder, umbilical arteries, three-vessel cord, extremities Suboptimal visualization: Spine BIOMETRY: BPD: 5.09 cm; 21 weeks 3 days; 91.50 % HC: 18.81 cm; 21 weeks 1 day; 83 % AC: 16.29 cm; 21 weeks 3 days; 81.60 % FL: 3.12 cm; 19 weeks 5 days; 26.60 % EFW:370.15 g; 75.70 %, 13 ounces FL/AC: 19.18 FL/BPD: 61.36 HC/AC: 1.16 GESTATIONAL AGE: Age by EDC: 20 weeks 1 day KELLEY by EDC: 2025-01-07 Age by current US: 21 weeks 0 days KELLEY by current US: 2025-01-01 US/US OB cervical length IMPRESSION: Normal anatomy scan Closed cervix measuring 4.4 cm in length *Reference: [facility] Practice Guideline for the performance of Obstetric Ultrasound Examinations, July 11, 2007. Electronically authenticated by: JIE JERNIGAN Date: 08/22/2024 07:49
--- OUTSIDE RECORDS SUMMARY | 2024-08-21 16:55 | XMS_ITS | CCD ---
Author Organization [facility] Care Team Providers Care Wildlife Conservationist Name Role Phone CHRISTIAN, DR SAUCEDA Attending Unavailable CHRISTIAN, DR SAUCEDA Consulting Unavailable CHRISTIAN, DR SAUCEDA Admitting Unavailable Cristina Selby Unavailable Gibson Gonzales MD Primary Care Provider SARAH ZHANG Attending Unavailable SARAH ZHANG Attending Unavailable Medications Current Medications Medication Drug [...] oral tablet (1 source) alpha-Adrenergic Agonist, Uncompetitive K-evzmlu-L-aspartat e Receptor Antagonist, Sigma-1 Agonist Start: 07-01-2023 take 1 tablet by mouth every six hours as needed for cough Capmist DM 60-15-400 MG 1 tablet Orally q6hrs prn congestion/cough for 7 days Jun, Active Pnv #64-Vnsp-Qkhah Acid-Omega3 (1 source) Start: 07-30-2024 Pnv #40-Boae-Hccpk Acid-Omega3 Active CAP PO July 30, 2024 12:00am Completed/Discontinued Medications Medication Drug Class(es) Dates Sig (Normalized) Sig (Original) amoxicillin 500 mg oral capsule (2 sources) Penicillin-class Antibacterial Start: 02-28-2024 End: 07-30-2024 take 500 mg by mouth twice daily Amoxicillin Discontinued 500 MG PO Twice daily 30 07February 28, 2024 12:00am July 30, 2024 10:16am azithromycin 250 mg oral tablet (3 sources) Macrolide Antimicrobial Start: 07-31-2024 End: 08-02-2024 azithromycin (Zithromax Z-Jaydon) 250 MG tablet Indications: Upper respiratory tract infection, unspecified type As directed 6 tablet 07/31/2024 08/02/2024 Discontinued L Norgest/E.Estradiol -E.Estrad (Simpesse) 0.15 mg-30 mcg (84)/10 mcg (7) [...] hemorrhage (1 source) Hematochezia; Translations: [Melena] Episodic Immunizations and screening for infectious disease (2 sources) Exposure to sexually transmissible disorder; Translations: [Contact with and (suspected) exposure to infections with a predominantly sexual mode of transmission] 08-02-2024 Episodic Menstrual disorders (5 sources) Irregular periods; Translations: [Irregular menstruation, unspecified] Onset: 04-07-2023 04-07-2023 Chronic Other female genital disorders (5 sources) Abnormal uterine bleeding; Translations: [Abnormal uterine and vaginal bleeding, unspecified] Onset: 04-07-2023 04-07-2023 Chronic Other female genital disorders (2 sources) Vaginal discharge; Translations: [Other specified noninflammatory disorders of vagina] 08-02-2024 Episodic Other and delivery including normal (6 sources) Second trimester ; Translations: [Encounter for supervision of normal , unspecified, second trimester] 08-02-2024 Episodic Other screening for suspected conditions (not mental disorders or infectious disease) (2 sources) Patient encounter status; Translations: [Encounter for other specified screening] 08-02-2024 Episodic Other upper respiratory disease (5 sources) Seasonal allergic rhinitis; Translations: [Other seasonal allergic rhinitis] Onset: 04-07-2023 04-07-2023 Chronic Other upper respiratory infections (5 sources) Sinusitis; Translations: [Chronic sinusitis, unspecified] Onset: 04-07-2023 04-07-2023 Chronic Other upper respiratory infections (9 sources) Acute upper respiratory infection, unspecified; Translations: [Acute pharyngitis, unspecified] Onset: 08-21-2021 Episodic Residual codes; unclassified (2 sources) Gestation period, 17 weeks; Translations: [17 weeks gestation of ] 08-02-2024 Episodic Past or Other Problems Problem Classification Problem Date Documented Da te Episodic/Chronic Unclassified (1 source) Suspected COVID-19 virus infection Z20.822 Results Test Name Value Interpretation Reference Range Facility URETHRITIS/DISCHARGE PLUS VA GINITIS (HTRX)on 08-04-2024 ATOPOBIUM VAGINAE 0 [facility] ATOPOBIUM VAGINAE Not detected [facility] BVAB 2,3 (BACTERIAL VAGINOSIS ASSOCIATED BACTERIA 2, 3); MOBILUNCUS SPP 0 [facility] BVAB 2,3 (BACTERIAL VAGINOSIS ASSOCIATED BACTERIA 2, 3); MOBILUNCUS SPP Not detected [facility] [place] ALBICANS, PARAPSILOSIS, TROPICALIS 30.391 Abnormal [facility] AMERICA ALBICANS, PARAPSILOSIS, TROPICALIS Detected Abnormal [facility] [place] GLABRATA 0 [facility] [place] GLABRATA Not [facility] [place] [facility]I [facility] [place] KRUSEI Not detected [facility] CHLAMYDIA TRACHOMATIS 0 [facility] CHLAMYDIA TRACHOMATIS Not detected [facility] GARDNERELLA VAGINALIS 0 [facility] GARDNERELLA VAGINALIS Not detected [facility] Interpretation and review of laboratory results Abnormal [facility] MEGASPHAERA (TYPES 1, 2) 0 [facility] MEGASPHAERA (TYPES 1, 2) Not detected [facility] MYCOPLASMA GENITALIUM 0 [facility] MYCOPLASMA GENITALIUM Not detected N [facility] NEISSERIA GONORRHOEAE 0 [facility] NEISSERIA GONORRHOEAE Not detected N [facility] TRICHOMONAS VAGINALIS 0 [facility] TRICHOMONAS VAGINALIS Not detected [facility] Urinalysis macro (dipstick) panel (U)on 08-02-2024 Bilirubin, UA Negative Negative - 4(70) +++ mg/dL [facility] Blood, UA Negative Negative - 50 Warren/mcL [facility] Clarity, UA Clear [facility] re Color, UA Yellow [facility] Glucose, [facility]A Negative Negative - 1999(110) ++++ mg/dL [facility] Interpretation and review of laboratory results Abnormal [facility] Ketones, UA Negative Negative - 160(16) ++++ mg/dL [facility] Leukocytes, UA Positive Negative - 500+++ Jamaal/mcL [facility] Comment on above: small Nitrite, UA Negative Negative - Positive [facility] pH, UA 6 5 - 9 [facility] e Protein, UA Negative Negative - 1999(20) ++++ mg/dL [facility] Spec Grav, UA 1.03 1 - 1.03 [facility] Urobilinogen, UA 0.2 0.2 - 12 mg/dL [facility] ALL CBC WITH AUTO DIFFon BASOPHILS ABSOLUTE AUTO 0.1 [facility] Basophils/100 WBC (Bld) 0.7 % 0.2 - 2.0 % [facility] Eosinophils/100 WBC (Bld) 2.1 % 0.9 - 7.0 % [facility] Erythrocyte distribution width (RBC) [Ratio] 12.7 % 11.0 - 15.0 % [facility] Hematocrit (Bld) [Volume fraction] 36.7 % 36.0 - 48.0 % [facility] Hemoglobin (Bld) [Mass/Vol] 12.6 g/dL 12.0 - 16.0 g/dL [facility] IMMATURE GRANULOCYTES ABS AUTO 0.04 High [facility] Immature granulocytes/100 WBC (Bld) 0.4 % 0.0 - 0.5 % [facility] Interpretation and review of laboratory results Abnormal [facility] LYMPHOCYTES ABSOLUTE AUTO 2.0 [facility] Lymphocytes/100 WBC (Bld) 18.5 % Low 20.5 - 60.0 % [facility] MCH (RBC) [Entitic mass] 29.8 pg 26.7 - 34.0 pg [facility] MCHC (RBC) [Mass/Vol] 34.3 g/dL 29.9 - 35.2 g/dL [facility] MCV (RBC) [Entitic vol] 86.8 fL 81.0 - 99.0 fL [facility] MONOCYTES ABSOLUTE AUTO 0.6 [facility] Monocytes/100 WBC (Bld) 5.9 % 1.7 - 12.0 % [facility] NEUTROPHILS ABSOLUTE AUTO 7.8 High [facility] Neutrophils/100 WBC (Bld) 72.4 % 43.0 - 75.0 % [facility] Platelet mean volume (Bld) [Entitic vol] 10.7 fL 9.5 - 13.5 fL [facility] TBH EO # 0.2 [facility] TBH PLT 226 [facility] TBH RBC 4.23 [facility] WBC 10.7 [facility] No Panel InformationOrdered By: Connie Marmolejo on 02-28-2024 Quick Strep (POC) [facility] COVID/FLU RT-PCRon 3 SARS-CoV-2 (COVID-19) RNA STEVE+probe Ql (Unsp spec) Negative [employer] Other COVID/FLU RT-PCR Negative [facility] [employer] Other Quick Strepon 07-01-2023 S. pyogenes Org specific cx Ql (Throat) Negative [employer] Other Quick Strep [employer] Other RESPIRATORY PANEL PLUSon Adenovirus Not detected Normal NOT DETECTED [facility] Comment on above: Performed By: #### R SPLUS #### [facility] [address] [place] [address] Dr. Pedro Luis Talbot. Parapertusis Not detected Normal NOT DETECTED [facility] Comment on above: Performed By: #### R SPLUS #### [facility] [address] [place] [address] Dr. Pedro Luis Talbot. Pertussis Not detected Normal NOT DETECTED The [facility] Comment on above: Performed By: #### R SPLUS #### [facility] [address] [place] [address] Dr. Pedro Luis Luis Chlamydia Pneumoniae Not detected Normal NOT DETECTED [facility] Comment on above: Performed By: #### R SPLUS #### [facility] [address] [place] [address] Dr. Pedro Luis Luis Coronavirus 229E Not detected Normal NOT DETECTED [facility] Comment on above: Performed By: #### R SPLUS #### [facility] [address] [place] [address] Dr. Pedro Luis Luis Coronavirus HKU1 Not detected Normal NOT DETECTED [facility] Comment on above: Performed By: #### R SPLUS #### [facility] [address] [place] [address] Dr. Pedro Luis Luis Coronavirus NL63 Not detected Normal NOT DETECTED [facility] Comment on above: Performed By: #### R SPLUS #### [facility] [address] [place] [address] Dr. Pedro Luis Luis Coronavirus OC43 Not detected Normal NOT DETECTED [facility] Comment on above: Performed By: #### R SPLUS #### [facility] [address] [place] [address] Dr. Pedro Luis Luis Influenza A H1 2008 Not detected Normal NOT DETECTED [facility] Comment on above: Performed By: #### R SPLUS #### [facility] [address] [place] [address] Dr. Pedro Luis Luis Influenza B Not detected Normal NOT DETECTED The [facility] Comment on above: Performed By: #### R SPLUS #### [facility] [address] [place] [address] Dr. Pedro Luis Luis Metapneumovirus Not detected Normal NOT DETECTED [facility] Comment on above: Performed By: #### R SPLUS #### [facility] [address] [place] [address] Dr. Pedro Luis Luis Mycoplas. Pneumoniae Not detected Normal NOT DETECTED [facility] Comment on above: Performed By: #### R SPLUS #### [facility] [address] [place] [address] Dr. Pedro Luis Luis Parainfluenza 1 Not detected Normal NOT DETECTED [facility] Comment on above: Performed By: #### R SPLUS #### [facility] [address] [place] [address] Dr. Pedro Luis Luis Parainfluenza 2 Not detected Normal NOT DETECTED [facility] Comment on above: Performed By: #### R SPLUS #### [facility] [address] [place] [address] Dr. Pedro Luis Luis Parainfluenza 3 Not detected Normal NOT DETECTED [facility] Comment on above: Performed By: #### R SPLUS #### [facility] [address] [place] [address] Dr. Pedro Luis Luis Parainfluenza 4 Not detected Normal NOT DETECTED [facility] Comment on above: Performed By: #### R SPLUS #### [facility] [address] [place] [address] Dr. Pedro Luis Luis Rhino/Enterovirus Not detected Normal NOT DETECTED [facility] Comment on above: Performed By: #### R SPLUS #### [facility] [address] [place] [address] Dr. Pedro Luis Luis RP2 Header 1 RESPIRATORY PANEL: VIRUSES Normal [facility] Comment on above: Performed By: #### R SPLUS #### [facility] [address] [place] [address] Dr. Pedro Luis Luis RP2 Header 2 RESPIRATORY PANEL: BACTERIA Normal [facility] Comment on above: Performed By: #### R SPLUS #### [facility] [address] [place] [address] Dr. Pedro Luis Luis RSV Not detected Normal NOT DETECTED [facility] Comment on above: Performed By: #### R SPLUS #### [facility] [address] [place] [address] Dr. Pedro Luis Luis SARS-CoV-2 (COVID-19) RNA STEVE+probe Ql (Unsp spec) Not detected Normal NOT DETECTED [facility] Comment on above: Performed By: #### R SPLUS #### [facility] [address] [address] [address] 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 May use rx of [facility] for symptomatic tx. Follow up with PCP if not improving over next 7 days or significantly worsening symptoms. Parent verbalized understanding and is agreeable with tx plan. This visit was conducted via two-way, real-time interactive video communications from my office using [employer] due to the restrictions of the COVID-19 pandemic. No physical exam was conducted other than those areas of the body visible to telecommunications with the patient located at [address] [place] [address], with spouse in attendance. If it is [...] for 5 day(s), 300 mL, Refill(s) 0, AVST #72, 169, cm, 08/20/21 17:56:00 EST, Height/Length Dosing, 68.4, kg, 08/20/21 17:56:00 EST, Weight Dosing 2. 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 Never Smokeless Tobacco Use:., 08/20/2021 [facility] Comment on above: Result Comment: Elec tronically Signed By: Aydee Munoz\.br\Date and Time Signed: 08/20/21 18:15 EST Patient Educationon 08-20-20 21 Patient Education Pulmonary Medicine Cool Mist Vaporizer [...] 06/24/2005 Document Revised: 10/14/2017 Document Reviewed: 12/26/2016 Elsevier Patient Education ? 2020 [employer] [facility] Vital Signs Date Time Vital Sign Value Performing Clinician Facility 08-02-2024 15:36-0400 Body mass index (BMI) [Ratio] 25.38 kg/m2 Sarah Leatha DO Work Phone: [facility] 08-02-2024 15:36-0400 Body weight 76.84 kg Sarah Leatha DO Work Phone: [facility] 08-02-2024 15:36-0400 Diastolic blood pressure 64 mm[Hg] Sarah Leatha DO Work Phone: [facility] 08-02-2024 15:36-0400 Systolic blood pressure 120 mm[Hg] Sarah Leatha DO Work Phone: [facility] 07-30-2024 10:08-0400 Body height 170.18 cm [facility] 07-30-2024 10:08-0400 Body mass index (BMI) [Ratio] 26.2 kg/m2 [facility] 07-30-2024 10:08-0400 Body temperature 98.7 [degF] [facility] 07-30-2024 10:08-0400 Body weight 75.74 kg [facility] 07-30-2024 10:08-0400 Diastolic blood pressure 69 mm[Hg] [facility] 07-30-2024 10:08-0400 Heart rate 95 /min [facility] 07-30-2024 10:08-0400 Respiratory rate 16 /min [facility] 07-30-2024 10:08-0400 SaO2% (BldA) [Mass fraction] 98 % [facility] 07-30-2024 10:08-0400 Systolic blood pressure 109 mm[Hg] [facility] 02-28-2024 16:23-0400 Body height 170.18 cm [facility] 02-28-2024 16:23-0400 Body mass index (BMI) [Ratio] 23.8 kg/m2 [facility] 02-28-2024 16:23-0400 Body temperature 98.5 [degF] [facility] 02-28-2024 16:23-0400 Body weight 68.94 kg [facility] 02-28-2024 16:23-0400 Diastolic blood pressure 64 mm[Hg] [facility] 02-28-2024 16:23-0400 Heart rate 82 /min [facility] 02-28-2024 16:23-0400 Respiratory rate 18 /min [facility] 02-28-2024 16:23-0400 SaO2% (BldA) [Mass fraction] 98 % [facility] 02-28-2024 16:23-0400 Systolic blood pressure 115 mm[Hg] [facility] 07-01-2023 09:35-0400 Body height 170.18 cm Cristina Selby Other [employer] Other 07-01-2023 09:35-0400 Body mass index (BMI) [Ratio] 26.47 kg/m2 Cristina Selby Other [employer] Other 07-01-2023 09:35-0400 Body temperature 98 [degF] Cristina Selby Other [employer] Other 07-01-2023 09:35-0400 Body weight 76.66 kg Cristina Selby Other [employer] Other 07-01-2023 09:35-0400 Respiratory rate 18 /min Cristina Selby Other [employer] Other 07-01-2023 09:35-0400 SaO2% (BldA) [Mass fraction] 98 % Cristina Selby Other [employer] Other Encounters Encounter Date Encounter Type Care Provider Facility Start: 08-02-2024 End: 08-02-2024 Patient encounter procedure CalAmp DO Work Phone: [facility] Start: 08-02-2024 End: 08-02-2024 Periodic preventive med est patient 18-39 yrs Sarah Coylezio DO Work Phone: [facility] Comment on above: 17 weeks gestation o f ; Second trimester ; Screening, , for anatomic survey; , unspecified gestational age; Encounter for supervision of normal first in first trimester; Well woman exam with routine gynecological exam; Exposure to STD; Vaginal discharge Start: 08-02-2024 End: 08-02-2024 ambulatory SARAH LEATHA Not Available Start: 08-02-2024 End: 08-02-2024 Bamboo flowsheet Sarah Leatha DO Work Phone: [facility] Start: 08-02-2024 End: 08-04-2024 Bamboo flowsheet Sarah Leatha DO Work Phone: [facility] Start: 08-02-2024 End: 08-04-2024 External Result Encounter Sarah Leatha DO Work Phone: [facility] External Department Unsolicited Start: 07-30-2024 End: 07-30-2024 ambulatory [facility] Work Phone: Start: 07-30-2024 End: 07-30-2024 Patient encounter procedure [facility] Work Phone: Start: 07-11-2024 End: 07-12-2024 [facility] Result Encounter Generic External Data Provider [facility] External Department Unsolicited Start: 07-11-2024 End: 07-12-2024 [facility] Result Encounter Generic External Data Provider [facility] External Department Unsolicited Start: 07-03-2024 End: 07-03-2024 ambulatory SARAH LEATHA Not Available Start: 06-02-2024 End: 06-02-2024 ambulatory SARAH LEATHA Not Available Start: 02-28-2024 End: 02-28-2024 ambulatory [facility] Work Phone: Start: 02-28-2024 End: 02-28-2024 Patient encounter procedure [facility] Physician [facility] Work Phone: Start: 07-01-2023 End: 07-01-2023 ambulatory Cristina Selby Other [employer] Other Start: 07-01-2023 Office outpatient ne w 20 minutes Cristina Selby [facility] Start: 08-21-2021 End: 08-21-[address] GIBSON GONZALES Facility:[facility] Procedures Date Procedure Procedure Detail Performing Clinician Start: 08-02-2024 Urnls dip stick/tabl et rgnt non-auto w/o micrscp Sarah Leatha DO Work Phone: Start: 08-02-2024 URETHRITIS/DISCHARGE PLUS VAGINITIS (HTRX) Sarah Leatha DO Work Phone: Start: 07-11-2024 ALL CBC WITH AUTO DIFF Sarah Leatha DO Work Phone: Start: 02-28-2024 Quick Strep (POC) Plan of Treatment Date Care Activity Detail Author Start: 08-30-2024 End: 08-30-2024 Patient encounter procedure 08/30/2024 2:50 PM EST Routine [facility] [address] [place] [id number] Mora Carlos PA [address] [place] [address] [facility] Start: 08-02-2024 End: 08-02-2024 Patient encounter procedure [facility] Comment on above: Arrived Start: 08-02-2024 End: 09-02-2024 Alpha fetoprotein, maternal Alpha fetoprotein, maternal Lab Routine Exposure to STD Expected: 08/02/2024 (Approximate), Expires: 09/02/2024 [facility] Comment on above: Expected: 08/02/2024 (Approximate), Expires: 09/02/2024 Start: 08-02-2024 End: 08-02-2025 Drugs of abuse panel - Urine by Screen method Rapid drug screen, urine Lab Routine , unspecified gestational age Encounter for supervision of normal first in first trimester Expected: 08/02/2024 (Approximate), Expires: 08/02/2025 [facility] Comment on above: Expected: 08/02/2024 (Approximate), Expires: 08/02/2025 Start: 08-02-2024 End: 08-02-2025 US for US OB ANATOMY SINGLE W US OB CERVICAL LENGTH Imaging Routine Screening, , for anatomic survey Expected: 08/02/2024 (Approximate), Expires: 08/02/2025 [facility] Comment on above: Expected: 08/02/2024 (Approximate), Expires: 08/02/2025 Start: 06-11-2024 Influenza vaccination Influ[facility] TRACHOMATI S (GENITO/STI) CHLAMYDIA TRACHOMATIS (GENITO/STI) Lab Routine Exposure to STD Ordered: 08/02/2024 [facility] Comment on above: Ordered: 08/02/2024 Cytology Cervical or vaginal smear or scraping study Pap Smear Pathology and Cytology Routine Well woman exam with routine gynecological exam Ordered: 08/02/2024 [facility] Work Phone: Comment on above: Ordered: 08/02/2024 Neisseria gonorrhoea e DNA [Presence] in Unspecified specimen by STEVE with probe detection Neisseria gonorrhea DNA probe, direct Lab Routine Exposure to STD Ordered: 08/02/2024 [facility] Comment on above: Ordered: 08/02/2024 SURESWAB(R) ADVANCED VAGINITIS PLUS, TMA SURESWAB(R) ADVANCED VAGINITIS PLUS, TMA Pathology and Cytology Routine Vaginal discharge Ordered: 08/02/2024 [facility] Comment on above: Ordered: 08/02/2024 Immunizations Immunization Date Immunization Notes Care Provider Jonna villarreal 07-14-2021 influenza, injectabl e, quadrivalent, preservative free Generic Provider [facility] 07-14-2021 influenza virus vacc ine, unspecified formulation Generic Provider [facility] 08-12-2020 influenza, injectabl e, quadrivalent, preservative free Generic Provider [facility] 12-04-2019 Influenza, injectabl e, Madin Lauren Canine Kidney, preservative free, quadrivalent Generic Provider [facility] 08-17-2018 seasonal influenza, intradermal, preservative free Generic Provider [facility] 08-04-2017 seasonal influenza, intradermal, preservative free Generic Provider [facility] 04-08-2017 meningococcal oligosaccharide (groups A, C, Y and W-135) diphtheria toxoid conjugate vaccine (MCV4O) Generic Provider [facility] 07-20-2016 influenza, injectabl e, quadrivalent, preservative free Generic Provider [facility] 07-24-2015 influenza, seasonal, injectable, preservative free Generic Provider [facility] 07-23-2015 influenza, injectabl e, quadrivalent, preservative free Generic Provider [facility] 09-08-2012 influenza, seasonal, injectable, preservative free Generic Provider [facility] [facility] 05-16-2012 tetanus toxoid, redu eugenio diphtheria toxoid, and acellular pertussis vaccine, adsorbed Generic Provider [facility] 02-02-2012 human papilloma viru s vaccine, quadrivalent Generic Provider [facility] 10-29-2011 human papilloma viru s vaccine, quadrivalent Generic Provider [facility] 07-01-2011 human papilloma viru s vaccine, quadrivalent Generic Provider [facility] 08-25-2010 influenza virus vacc ine, whole virus Generic Provider [facility] 06-03-2005 diphtheria, tetanus toxoids and acellular pertussis vaccine, unspecified formulation Generic Provider [facility] 06-03-2005 measles, mumps and r ubella virus vaccine Generic Provider [facility] 06-03-2005 poliovirus vaccine, inactivated Generic Provider [facility] 12-06-2000 diphtheria, tetanus toxoids and acellular pertussis vaccine, unspecified formulation Generic Provider [facility] 12-06-2000 haemophilus influenz ae type b vaccine, conjugate unspecified formulation Generic Provider [facility] 12-06-2000 measles, mumps and r ubella virus vaccine Generic Provider [facility] 12-06-2000 poliovirus vaccine, inactivated Generic Provider [facility] 1999 diphtheria, tetanus toxoids and acellular pertussis vaccine, unspecified formulation Generic Provider [facility] 1999 haemophilus influenz ae type b vaccine, conjugate unspecified formulation Generic Provider [facility] 1999 hepatitis B vaccine, pediatric or pediatric/adolescent dosage Generic Provider [facility] are 1999 poliovirus vaccine, inactivated Generic Provider [facility] 1999 diphtheria, tetanus toxoids and acellular pertussis vaccine, unspecified formulation Generic Provider [facility] 1999 haemophilus influenz ae type b vaccine, conjugate unspecified formulation Generic Provider [facility] 1999 hepatitis B vaccine, pediatric or pediatric/adolescent dosage Generic Provider [facility] are 1999 poliovirus vaccine, inactivated Generic Provider [facility] 1999 diphtheria, tetanus toxoids and acellular pertussis vaccine, unspecified formulation Generic Provider [facility] 1999 haemophilus influenz ae type b vaccine, conjugate unspecified formulation Generic Provider [facility] 1999 hepatitis B vaccine, pediatric or pediatric/adolescent dosage Generic Provider [facility] 1999 poliovirus vaccine, inactivated Generic Provider [facility] Payers Date Payer Category Payer Private Health Insurance [employer] [id number] 2023 Unknown [id number] 2023 Unknown [id number] 1999 Unknown [id number] 1999 Unknown [id number] 1999 Unknown [id number] 1999 Unknown [id number] 1959 Unknown [id number] Unknown [facility] [id number] Social History Date Type Detail Facility Unknown if ever smoked [facility] Other Start: 08-17-2023 Sex Assigned At N [facility] Other Start: 04-07-2023 End: 02-28-2024 Tobacco smoking status NHIS Never smoked tobacco (finding) [facility] Start: 2000 Sex Assigned At Female F [facility] Start: 04-07-2023 Tobacco use and exposure Smokeless tobacco non-user [facility] Start: 07-03-2024 End: 08-02-2024 Alcoholic beverage intake Ex-drinker (finding) [facility] Start: 08-17-2023 History of Social function [facility] Start: 05-14-2023 Alcohol Comment Caffeine intak e: 1-2 cups per day [facility] Start: 04-16-2024 [facility] Start: 1999 Sex assigned at Not on file N [facility] History of Present illness Narrative 08-02-2024 Venita Da Silvasanya, HEAD OF TRAINING AND DEVELOPMENT - 08/02/2024 3:20 PM EDT Note Date & Type Note Facility 08-02-2024 History of Presen t illness Narrative Reason for Appointment: Patient ID: Viri Dao is a 24 y.o. female who presents for Routine Visit Patient presents today for Annual Exam., STD Check., and Return OB appointment. MEDICATIONS No current outpatient medications ALLERGIES No Known Allergies PROBLEMS Active Ambulatory Problems Diagnosis Date Noted Abnormal uterine bleeding 04/07/2023 Irregular menses 04/07/2023 Seasonal allergic rhinitis 04/07/2023 Sinusitis 04/07/2023 Resolved Ambulatory Problems Diagnosis Date Noted No Resolved Ambulatory Problems Past Medical History: Diagnosis Date Allergic Asthma, exercise induced (CMS/HCC) H/O CT scan 08/12/2020 HISTORY PAST MEDICAL HISTORY SOCIAL HISTORY Past Medical History: Diagnosis Date Allergic Asthma, exercise induced (CMS/HCC) H/O CT scan 08/12/2020 Ct scan of Abdomen: Normal Appendiix, No specific etiology to explain the patient's diarrhea Social History Tobacco Use Smoking status: Never Smokeless tobacco: Never Substance Use Topics Alcohol use: Not Currently Comment: Caffeine intake: 1-2 cups per day Drug use: Never FAMILY HISTORY Family History Problem Relation Name Age of Onset Coronary artery disease Other Other (H1N1) Other Hypertension Other Hyperlipidemia Other Cancer Other Diabetes Other SURGICAL HISTORY History reviewed. No pertinent surgical history. REVIEW OF SYSTEMS Review of Systems: Review of Systems Constitutional: Negative. HENT: Negative. Eyes: Negative. Respiratory: Negative. Cardiovascular: Negative. Gastrointestinal: Negative. Genitourinary: Negative. Musculoskeletal: Negative. Skin: Negative. Neurological: Negative. All other systems reviewed and are negative. Hematological: Negative. Endocrine: Negative. Allergic/Immunologic: Negative. OBJECTIVE Objective: Physical Exam Constitutional: Appearance: Normal appearance. She is well-developed. Genitourinary: Vulva normal. Breasts: Breasts are soft. Right: Normal. Left: Normal. Cardiovascular: Rate and Rhythm: Normal rate and regular rhythm. Pulmonary: Effort: Pulmonary effort is normal. Breath sounds: Normal breath sounds. Abdominal: General: Bowel sounds are normal. There is no distension. Palpations: Abdomen is soft. Tenderness: There is no abdominal tenderness. There is no guarding or rebound. Musculoskeletal: General: No swelling. Normal range of motion. Right lower leg: No edema. Left lower leg: No edema. Neurological: Mental Status: She is alert and oriented to person, place, and time. Skin: General: Skin is warm and dry. Psychiatric: Mood and Affect: Mood normal. Behavior: Behavior normal. Vitals and nursing note reviewed. Exam conducted with a wastewater project engineer present. Vitals: Estimated body mass index is 25.38 kg/m as calculated from the following: Height as of 07/13/23: 5' 8.5 . Weight as of this encounter: 169 lb 6.4 oz. BP: 120/64 Patient's last menstrual period was 04/02/2024. ASSESSMENT & PLAN ICD-10-CM 1. 17 weeks gestation of Z3A.17 POCT urinalysis dipstick manually resulted 2. Second trimester Z34.92 POCT urinalysis dipstick manually resulted 3. Screening, , for anatomic survey Z36.89 US OB ANATOMY SINGLE W US OB CERVICAL LENGTH 4. , unspecified gestational age Z34.90 Rapid drug screen, urine Rapid drug screen, urine 5. Encounter for supervision of normal first in first trimester Z34.01 Rapid drug screen, urine Rapid drug screen, urine 6. Well woman exam with routine gynecological exam Z01.419 Pap Smear 7. Exposure to STD Z20.2 CHLAMYDIA TRACHOMATIS (GENITO/STI) Neisseria gonorrhea DNA probe, direct Alpha fetoprotein, maternal Alpha fetoprotein, maternal 8. Vaginal discharge N89.8 SURESWAB(R) ADVANCED VAGINITIS PLUS, TMA Return OB/Annual Exam: Patient presents today for a annual exam/routine obstetrics appointment. Patient is currently 17w3d . Patient states she is doing well but has complaints of nausea in the morning. Pap and cultures was obtained without difficulty and patient was given orders for anatomy scan and msAFP to be obtained. Orders Placed This Encounter Procedures US OB ANATOMY SINGLE W US OB CERVICAL LENGTH CHLAMYDIA TRACHOMATIS (GENITO/STI) Neisseria gonorrhea DNA probe, direct Alpha fetoprotein, maternal Rapid drug screen, urine POCT urinalysis dipstick manually resulted Follow Up: Patient is to schedule annual exam for next year and return to office in 4 weeks for OB appointment. Documented by Venita Neil LPN on behalf of: Sarah Zhang DO documented in this encounter [facility] Evaluation note 07-01-2023 Note Date & [...] Suspected COVID-19 virus infection (ICD-10 - Z20.822) [employer] Other Evaluation note Note Date & Type Note Facility Evaluation note No assessment information availa [facility] Work Phone: Evaluation note Note Date & Type Note Facility Evaluation note Diagnosis Onset Date Acute sinusitis with symptom s greater than 10 days [facility] Work Phone: Evaluation note Note Date & Type Note Facility Evaluation note Diagnosis 17 weeks gestation of Second trimester state, incidental Screening, , for anatomic survey Encounter for anatomic survey , unspecified gestational age Encounter for supervision of normal first in first trimester Well woman exam with routine gynecological exam Routine gynecological examination Exposure to STD Vaginal discharge Leukorrhea, not specified as infective documented in this encounter [facility] Summary Purpose Family History No Family History [...] and content) DATE CREATED AUTHOR 08/22/2021 [place] [facility] DATE CREATED AUTHOR AUTHOR'S ORGANIZ ATION 08/27/2021 [facility] DATE CREATED AUTHOR AUTHOR'S ORGANIZ ATION 08/04/2024 [facility] EPIC REASON FOR VISIT (unrecogniz ed section and content) Reason Comments Routine Visit Care Teams (unrecognized sec tion and content) Team Status: Active Member Role Status Dates Gibson Gonzales MD Primary Care Provider Active Team Status: Inactive Member Role Status Dates Gibson Gonzales MD Primary Care Provider Active S tart: February 28, 2024 End: February 28, 2024 Connie Marmolejo APRN Attending Provider Active S tart: February 28, 2024 End: February 28, 2024 Wildlife Conservationist Relationship Specialty Start Date End Date Gibson Gonzales MD [address] [facility] [address] [place] [address] PCP - General Family Medicine 04/07/23 Team Status: Inactive Member Role Status Dates Gibson Gonzales MD Primary Care Provider Active S tart: July 30, 2024 End: July 30, 2024 Cristina Selby APRN Attending Provider Active Start: July 30, 2024 End: July 30, 2024 Wildlife Conservationist Relationship Specialty Start Date End Date Gibson Gonzales MD [address] [facility] [address] [place] [address] PCP - General Family Medicine 04/07/23 Wildlife Conservationist Relationship Specialty Start Date End Date Gibson Gonzales MD [address] [place] [address] PCP - General Family Medicine 04/07/23 Goals (unrecognized section and content) Goals may [...] BE BASED ON THE PRIMARY CLINICAL RECORDS. [facility]. provides no warranty or guarantee of the accuracy or completeness of information in this document.
== END 2024-08-21 16:52 | disposition home or self-care (01) ==
LOC: US 16:51
PROVIDERS: PCP Family Medicine; Visit Provider Obstetrics & Gynecology
DX: Z36.89 Encounter for other specified antenatal screening (principal); Z3A.20 20 weeks gestation of pregnancy
CPT/HCPCS: 76805; 76817

== ENCOUNTER 2024-09-20 16:45 | Outpatient (OUT) | payer OTHER, SELFPAY ==
--- NOTE | 2024-09-20 16:48 | US_ITS ---
[address] [address] Patient Name: SORAIDA VALENCIA MRN: [id number] date: 2000 Sex: F Assigned Patient Location: US Current Patient Location: Accession/Order Number: [id number] Exam Date: 09/20/2024 16:59 Report Date: 09/21/2024 08:08 At the request of: SARAH PEREIRA Procedure: US OB incomplete anatomy EXAM: US OB incomplete anatomy HISTORY: ENCOUNTER FOR FOLLOW UP OF ANATOMY Z36.2 COMPARISON: None. TECHNIQUE: Transabdominal FINDINGS: position: Cephalic presentation, longitudinal lie Amniotic fluid: Subjectively normal Heart rate: 150 beats minute Normal anatomy: spine, seen only from the posterior Clinical age: 24 weeks 3 days Clinical KELLEY: 01/07/2025 US/US OB incomplete anatomy IMPRESSION: Visualized spine is normal Electronically authenticated by: JIE JERNIGAN Date: 09/21/2024 08:08
== END 2024-09-20 16:46 | disposition home or self-care (01) ==
LOC: US 16:45
PROVIDERS: PCP Family Medicine; Visit Provider Obstetrics & Gynecology
DX: Z36.2 Encounter for other antenatal screening follow-up (principal); Z3A.24 24 weeks gestation of pregnancy
CPT/HCPCS: 76815

== ENCOUNTER 2024-10-13 09:29 | Outpatient (OUT) | payer OTHER, SELFPAY ==
--- OUTSIDE RECORDS SUMMARY | 2024-10-13 09:52 | XMS_ITS | CCD ---
Author Organization [facility] Care Team Providers Care Commissioning Agent Name Role Phone CHRISTIAN, DR SAUCEDA Attending Unavailable CHRISTIAN, DR SAUCEDA Consulting Unavailable CHRISTIAN, DR SAUCEDA Admitting Unavailable Cristina Selby Unavailable Gibson Gonzales MD Primary Care Provider SARAH ZHANG Attending Unavailable SARAH ZHANG Attending Unavailable MORA VÁSQUEZ Attending Unavailable SARAH ZHANG Attending Unavailable Medications [...] oral tablet (1 source) alpha-Adrenergic Agonist, Uncompetitive C-rxduze-B-asparta te Receptor Antagonist, Sigma-1 Agonist Start: 07-01-2023 take 1 tablet by mouth every six hours as needed for cough Capmist DM 60-15-400 MG 1 tablet Orally q6hrs prn congestion/cough for 7 days Jun, Active Ethinyl Estradiol / Levonorgestrel (1 source) Progestin, Estrogen, Progestin-containi ng Intrauterine Device Start: 10-18-2023 End: 06-02-2024 take 1 tablet by mouth in the morning L norgest/e.estradio l-e.estrad (Seasonique) 0.15-0.03 &0.01 MG tablet tablet Indications: Irregular menses , Encounter for initial prescription of contraceptive pills Take 1 tablet by mouth in the morning. 91 tablet 3 10/18/2023 06/02/2024 Discontinued Pnv #[id number] Acid-Omega3 (1 source) Start: 07-30-2024 Pnv #[id number] Acid-Omega3 Active CAP PO July 30, 2024 12:00am Completed/Discontinued Medications Medication Drug Class(es) Dates Sig (Normalized) Sig (Original) amoxicillin 500 mg oral capsule (2 sources) Penicillin-class Antibacterial Start: 02-28-2024 End: 07-30-2024 take 500 mg by mouth twice daily Amoxicillin Discontinued 500 MG PO Twice daily 30 07February 28, 2024 12:00am July 30, 2024 10:16am azithromycin 250 mg oral tablet (5 sources) Macrolide Antimicrobial Start: 09-01-2024 End: 10-02-2024 azithromycin (Zithromax Z-Jaydon) 250 MG tablet Indications: Sinusitis, unspecified chronicity, unspecified location As directed 6 tablet 09/01/2024 10/02/2024 Discontinued Start: 07-31-2024 End: 08-02-2024 azithromycin (Zithromax Z-Pa k) 250 MG tablet Indications: Upper respiratory tract infection, unspecified type As directed 6 tablet 07/31/2024 08/02/2024 Discontinued L Norgest/E.Estradiol-E.Estr ad (Simpesse) 0.15 mg-30 mcg (84)/10 mcg (7) tablets,dose pack,3 month (2 sources) Start: 02-28-2024 End: 07-30-2024 take 1 tablet by mouth once daily L Norgest/E.Estradiol-E.Estrad (Simpesse) 0.15 mg-30 mcg (84)/10 mcg (7) tablets,dose pack,3 month Discontinued 1 TAB PO Daily February 28, 2024 12:00am July 30, 2024 10:16am Start: 02-28-2024 take 1 tablet by josh once daily L Norgest/E.Estradiol-E.Estrad (Simpesse ) 0.15 [...] mode of transmission] 08-02-2024 Episodic Menstrual disorders (16 sources) Irregular periods; Translations: [Irregular menstruation, unspecified] Onset: 04-07-2023 04-07-2023 Chronic Other complications of (2 sources) size does not accord with dates; Translations: [Uterine size-date discrepancy, unspecified trimester] 10-02-2024 Episodic Other female genital disorders (15 sources) Abnormal uterine bleeding; Translations: [Abnormal uterine and vaginal bleeding, unspecified] Onset: 04-07-2023 04-07-2023 Chronic Other female genital disorders (2 sources) Vaginal discharge; Translations: [Other specified noninflammatory disorders of vagina] 08-02-2024 Episodic Other and delivery including normal (12 sources) Second trimester ; Translations: [Encounter for supervision of normal , unspecified, second trimester] 08-02-2024 Episodic Other screening for suspected conditions (not mental disorders or infectious disease) (6 sources) Patient encounter status; Translations: [Encounter for other specified screening] 08-02-2024 Episodic Other upper respiratory disease (15 sources) Seasonal allergic rhinitis; Translations: [Other seasonal allergic rhinitis] Onset: 04-07-2023 04-07-2023 Chronic Other upper respiratory infections (15 sources) Sinusitis; Translations: [Chronic sinusitis, unspecified] Onset: 04-07-2023 04-07-2023 Chronic Other upper respiratory infections (9 sources) Acute upper respiratory infection, unspecified; Translations: [Acute pharyngitis, unspecified] Onset: 08-21-2021 Episodic Residual codes; unclassified (2 sources) Gestation period, 17 weeks; Translations: [17 weeks gestation of ] 08-02-2024 Episodic Residual codes; unclassified (2 sources) Gestation period, 21 weeks; Translations: [21 weeks gestation of ] 08-30-2024 Episodic Residual codes; unclassified (2 sources) Gestation period, 26 weeks; Translations: [26 weeks gestation of ] 10-02-2024 Episodic Past or Other Problems Problem Classification Problem Date Documented Da te Episodic/Chronic Unclassified (1 source) Suspected COVID-19 virus infection Z20.822 Results Test Name Value Interpretation Reference Range Facility Urinalysis macro (dipstick) panel (U)on 10-02-2024 Bilirubin, UA Negative Negative - 4(70) +++ mg/dL [facility] Blood, UA Negative Negative - 50 Warren/mcL [facility] Clarity, UA Clear [facility] re Color, [facility] Glucose, UA Negative Negative - 1999(110) ++++ mg/dL [facility] Interpretation and review of laboratory results Abnormal [facility] Ketones, UA Negative Negative - 160(16) ++++ mg/dL [facility] Leukocytes, UA Moderate Negative - 500+++ Jamaal/mcL [facility] Nitrite, UA Negative Negative - Positive [facility] pH, UA 7 5 - 9 [facility] e Protein, UA Negative Negative - 1999(20) ++++ mg/dL [facility] Spec Grav, UA 1.02 1 - 1.03 [facility] Urobilinogen, UA 0.2 0.2 - 12 mg/dL [facility] e URETHRITIS/DISCHARGE PLUS VA GINITIS (HTRX)on 08-04-2024 ATOPOBIUM VAGINAE 0 [facility] ATOPOBIUM VAGINAE Not detected [facility] BVAB 2,3 (BACTERIAL VAGINOSIS ASSOCIATED BACTERIA 2, 3); MOBILUNCUS SPP 0 [facility] BVAB 2,3 (BACTERIAL VAGINOSIS ASSOCIATED BACTERIA 2, 3); MOBILUNCUS SPP Not detected [facility] AMERICA ALBICANS, PARAPSILOSIS, TROPICALIS 30.391 Abnormal [facility] AMERICA ALBICANS, PARAPSILOSIS, TROPICALIS Detected Abnormal [facility] AMERICA GLABRATA 0 [facility] [place] GLABRATA Not detected [facility] [place] KRUSEI 0 [facility] [place] KRUSEI Not detected [facility]thcare CHLAMYDIA TRACHOMATIS 0 [facility] CHLAMYDIA TRACHOMATIS Not detected N [facility] Healthcare GARDNERELLA VAGINALIS 0 [facility] GARDNERELLA VAGINALIS Not detected N [facility] Interpretation and review of laboratory results Abnormal [facility] MEGASPHAERA (TYPES 1, 2) 0 [facility] MEGASPHAERA (TYPES 1, 2) Not detected [facility] MYCOPLASMA GENITALIUM 0 NOM [facility] MYCOPLASMA GENITALIUM Not detected N [facility] NEISSERIA GONORRHOEAE 0 [facility] NEISSERIA GONORRHOEAE Not detected N [facility] TRICHOMONAS VAGINALIS 0 [facility] TRICHOMONAS VAGINALIS Not detected N [facility] Healthcare [facility] Health[facility] e TBH DRUG SCREEN RAPID (URINE )on 08-03-2024 AMPHETAMINE SCREEN URINE Negative NEGATIVE [facility] BARBITURATES SCREEN URINE Negative NEGATIVE [facility] BENZODIAZEPINES SCREEN URINE Negative NEGATIVE [facility] BUPRENORPHINE SCREEN URINE Negative NEGATIVE [facility] Comment on above: DRUG CLASS TEST SYST EM CUT-OFF CONCENTRATIONS ARE FOLLOWS: AMP (Amphetamine): 500 ng/mL BAR (Barbiturates): 200 ng/mL BZO (Benzodiazepines): 150 ng/mL BUP (Buprenorphine): 10 ng/mL DWIGHT (Cocaine): 150 ng/mL mAMP (Methamphetamine): 500 ng/mL MTD (Methadone): 200 ng/mL OPI (Opiates): 100 ng/mL OXY (Oxycodone): 100 ng/mL PCP (Phencyclidine): 25 ng/mL THC (Cannabinoids): 50 ng/mL TCA (Trycyclic Antidepressants): 300 ng/mL CANNABINOID SCREEN URINE Negative NEGATIVE [facility] COCAINE SCREEN URINE Negative NEGATIVE [facility] METHADONE SCREEN URINE Negative NEGATIVE NO [facility] METHAMPHETAMINES SCREEN URINE Negative NEGATIVE [facility] OPIATE SCREEN URINE Negative NEGATIVE [facility] OXYCODONE SCREEN URINE Negative NEGATIVE NO [facility] PHENCYCLIDINE SCREEN URINE Negative NEGATIVE [facility] TRICYCLIC ANTIDEPRESSANT URINE Negative NEGATIVE [facility] REFLEX IF POSITIVE [facility] Urinalysis macro (dipstick) panel (U)on 08-02-2024 Bilirubin, UA Negative Negative - 4(70) +++ mg/dL [facility] Blood, UA Negative Negative - 50 Warren/mcL [facility] Clarity, UA Clear [facility] re Color, UA Yellow [facility] e Glucose, UA Negative Negative - 2000(110) ++++ mg/dL [facility] Interpretation and review of laboratory results Abnormal [facility] Ketones, UA Negative Negative - 160(16) ++++ mg/dL [facility] Leukocytes, UA Positive Negative - 500+++ Jamaal/mcL [facility] Comment on above: small Nitrite, UA Negative Negative - Positive [facility] pH, UA 6 5 - 9 [facility] e Protein, UA Negative Negative - 1999(20) ++++ mg/dL [facility] Spec Grav, UA 1.03 1 - 1.03 [facility] Urobilinogen, UA 0.2 0.2 - 12 mg/dL [facility] CBC WITH AUTO DIFFon BASOPHILS ABSOLUTE AUTO 0.1 [facility] Basophils/100 WBC (Bld) 0.7 % 0.2 - 2.0 % [facility] Eosinophils/100 WBC (Bld) 2.1 % 0.9 - 7.0 % [facility] Erythrocyte distribution width (RBC) [Ratio] 12.7 % 11.0 - 15.0 % [facility] Hematocrit (Bld) [Volume fraction] 36.7 % 36.0 - 48.0 % [facility] Hemoglobin (Bld) [Mass/Vol] 12.6 g/dL 12.0 - 16.0 g/dL [facility] IMMATURE GRANULOCYTES ABS AUTO 0.04 High [facility] Immature granulocytes/100 WBC (Bld) 0.4 % 0.0 - 0.5 % [facility] Interpretation and review of laboratory results Abnormal [facility] LYMPHOCYTES ABSOLUTE AUTO 2.0 [facility] Lymphocytes/100 WBC (Bld) 18.5 % Low 20.5 - 60.0 % [facility] MCH (RBC) [Entitic mass] 29.8 pg 26.7 - 34.0 pg [facility] MCHC (RBC) [Mass/Vol] 34.3 g/dL 29.9 - 35.2 g/dL [facility] MCV (RBC) [Entitic vol] 86.8 fL 81.0 - 99.0 fL [facility] MONOCYTES ABSOLUTE AUTO 0.6 [facility] Monocytes/100 WBC (Bld) 5.9 % 1.7 - 12.0 % [facility] NEUTROPHILS ABSOLUTE AUTO 7.8 High [facility] Neutrophils/100 WBC (Bld) 72.4 % 43.0 - 75.0 % [facility] Platelet mean volume (Bld) [Entitic vol] 10.7 fL 9.5 - 13.5 fL [facility] TBH EO # 0.2 [facility] PLT 226 [facility] RBC 4.23 [facility] WBC 10.7 [facility] Urinalysis macro (dipstick) panel (U)on 07-03-2024 Bilirubin, UA Negative Negative - 4(70) +++ mg/dL [facility] Blood, UA Negative Negative - 50 Warren/mcL [facility] Clarity, UA Clear [facility] re Color, UA Yellow [facility] e Glucose, UA Negative Negative - 1999(110) ++++ mg/dL [facility] Interpretation and review of laboratory results Abnormal [facility] Ketones, UA Negative Negative - 160(16) ++++ mg/dL [facility] Leukocytes, UA Few Negative - 500+++ Jamaal/mcL [facility] Nitrite, UA Negative Negative - Positive [facility] pH, UA 5.5 5 - 9 [facility] e Protein, UA Negative Negative - 1999(20) ++++ mg/dL [facility] Spec Grav, UA 1.020 1 - 1.03 [facility] Urobilinogen, UA 1.0 0.2 - 12 mg/dL [facility] HCG ( test) Ql (U)o n 06-02-2024 Interpretation and review of laboratory results Abnormal [facility] Preg Test, Ur Positive [facility] No Panel InformationOrdered By: Connie Marmolejo on 02-28-2024 Quick Strep (POC) [facility] COVID/FLU RT-PCRon 3 SARS-CoV-2 (COVID-19) RNA STEVE+probe Ql (Unsp spec) Negative [employer] Other COVID/FLU RT-PCR Negative [employer] Other Quick Strepon 07-01-2023 S. pyogenes Org specific cx Ql (Throat) Negative [employer] Other Quick Strep [employer] Other RESPIRATORY PANEL PLUSon Adenovirus Not detected Normal NOT DETECTED [facility] Comment on above: Performed By: #### R SPLUS #### [facility] [address] [place] [address] Dr. Pedro Luis Mckeon Parapertusis Not detected Normal NOT DETECTED [facility] Comment on above: Performed By: #### R SPLUS #### [facility] [address] [place] [address] Dr. Pedro Luis Talbot. Pertussis Not detected Normal NOT DETECTED [facility] Comment on above: Performed By: #### R SPLUS #### [facility] [address] [place] [address] Dr. Pedro Luis Luis Chlamydia Pneumoniae Not detected Normal NOT DETECTED [facility] Comment on above: Performed By: #### R SPLUS #### [facility] [address] [place] [address] Dr. Pedro Luis Luis Coronavirus 229E Not detected Normal NOT DETECTED [facility] Comment on above: Performed By: #### R SPLUS #### [facility] [address] [place] [address] Dr. Pedro Luis Luis Coronavirus HKU1 Not detected Normal NOT DETECTED [facility] Comment on above: Performed By: #### R SPLUS #### [facility] [address] [place] [address] Dr. Pedro Luis Luis Coronavirus NL63 Not detected Normal NOT DETECTED [facility] Comment on above: Performed By: #### R SPLUS #### [facility] [address] [place] [address] Dr. Pedro Luis Luis Coronavirus OC43 Not detected Normal NOT DETECTED [facility] Comment on above: Performed By: #### R SPLUS #### [facility] [address] [place] [address] Dr. Pedro Luis Luis Influenza A H1 2009 Not detected Normal NOT DETECTED [facility] Comment on above: Performed By: #### R SPLUS #### [facility] [address] [place] [address] Dr. Pedro Luis Luis Influenza B Not detected Normal NOT DETECTED [facility] Comment on above: Performed By: #### R SPLUS #### [facility] [address] [place] [address] Dr. Pedro Luis Luis Metapneumovirus Not detected Normal NOT DETECTED [facility] Comment on above: Performed By: #### R SPLUS #### [facility] [address] [place] [address] Dr. Pedro Luis Luis Mycoplas. Pneumoniae Not detected Normal NOT DETECTED [facility] Comment on above: Performed By: #### R SPLUS #### [facility] [address] [place] [address] Dr. Pedro Luis Luis Parainfluenza 1 Not detected Normal NOT DETECTED [facility] Comment on above: Performed By: #### R SPLUS #### [facility] [address] [place] [address] Dr. Pedro Luis Luis Parainfluenza 2 Not detected Normal NOT DETECTED [facility] Comment on above: Performed By: #### R SPLUS #### [facility] [address] [place] [address] Dr. Pedro Luis Luis Parainfluenza 3 Not detected Normal NOT DETECTED [facility] Comment on above: Performed By: #### R SPLUS #### [facility] [address] [place] [address] Dr. Pedro Luis Luis Parainfluenza 4 Not detected Normal NOT DETECTED [facility] Comment on above: Performed By: #### R SPLUS #### [facility] [address] [place] [address] Dr. Pedro Luis Luis Rhino/Enterovirus Not detected Normal NOT DETECTED [facility] Comment on above: Performed By: #### R SPLUS #### [facility] [address] [place] [address] Dr. Pedro Luis Luis RP2 Header 1 RESPIRATORY PANEL: VIRUSES Normal [facility] Comment on above: Performed By: #### R SPLUS #### [facility] [address] [place] [address] Dr. Pedro Luis Luis RP2 Header 2 RESPIRATORY PANEL: BACTERIA Normal [facility] Comment on above: Performed By: #### R SPLUS #### [facility] [address] [place] [address] Dr. Pedro Luis Luis RSV Not detected Normal NOT DETECTED [facility] Comment on above: Performed By: #### R SPLUS #### [facility] [address] [address] [address] Pedro Luis Luis SARS-CoV-2 (COVID-19) RNA STEVE+probe Ql (Unsp spec) Not detected Normal NOT DETECTED [facility] Comment on above: Performed By: #### R SPLUS #### [facility] [address] [address] [address] Pedro Luis Luis Family Medicine Video Visit - Telehealthon 08-20-2021 Family Medicine Video Visit - Telehealth Chief Complaint STREET [employer] cough, congestion, sore throat- no voice HPI [...] gargles as needed. May use rx of [place] for symptomatic tx. Follow up with PCP if not improving over next 7 days or significantly worsening symptoms. Parent verbalized understanding and is agreeable with tx plan. This visit was conducted via two-way, real-time interactive video communications from my office using [employer] due to the restrictions of the COVID-19 pandemic. No physical exam was conducted other than those areas of the body visible to telecommunications with the patient located at [address] [place] [address], with spouse in attendance. If it is [...] for 5 day(s), 300 mL, Refill(s) 0, to be #72, 169, cm, 08/20/21 17:56:00 EST, Height/Length Dosing, 68.4, kg, 08/20/21 17:56:00 EST, Weight Dosing 2. Cough (R05.9: Cough, unspecified) See above treatment plan Ordered: dextromethorphan-pyri ria, 20 mL, Oral, q8hr for 5 day(s), 300 mL, Refill(s) 0, to be #72, 169, cm, 08/20/21 17:56:00 EST, Height/Length Dosing, 68.4, kg, 08/20/21 17:56:00 EST, Weight Dosing Follow-up With When Contact Information Aydee Munoz, FAM Only if needed Additional Instructions: Patient Education Cool Mist Vaporizer Problem List/Past Medical History Ongoing No chronic problems Historical No qualifying data Medications [place] DM 7.5 mg-7.5 mg/5 mL oral liquid, [...] 06/24/2005 Document Revised: 10/14/2017 Document Reviewed: 12/26/2016 [id number] Patient Education ? 2019 [employer]. [facility] Vital Signs Date Time Vital Sign Value Performing Clinician Facility 10-02-2024 16:23-0500 Body mass index (BMI) [Ratio] 27.14 kg/m2 Sarah Leatha DO Work Phone: [facility] 10-02-2024 16:23-0500 Body weight 82.16 kg Sarah Leatha DO Work Phone: [facility] 10-02-2024 16:23-0500 Diastolic blood pressure 64 mm[Hg] Sarah Leatha DO Work Phone: [facility] 10-02-2024 16:23-0500 Systolic blood pressure 110 mm[Hg] Sarah Leatha DO Work Phone: [facility] 08-30-2024 14:58-0500 Body mass index (BMI) [Ratio] 25.74 kg/m2 Mora Diberville PA Work Phone: [facility] 08-30-2024 14:58-0500 Body weight 77.93 kg Mora Terrance PA Work Phone: [facility] 08-30-2024 14:58-0500 Diastolic blood pressure 68 mm[Hg] Mora Diberville PA Work Phone: [facility] 08-30-2024 14:58-0500 Systolic blood pressure 122 mm[Hg] Mora Diberville PA Work Phone: [facility] 08-02-2024 15:36-0400 Body mass index (BMI) [Ratio] 25.38 kg/m2 Sarah Leatha DO Work Phone: [facility] 08-02-2024 15:36-0400 Body weight 76.84 kg Sarah Leatha DO Work Phone: [facility] 08-02-2024 15:36-0400 Diastolic blood pressure 64 mm[Hg] Sarah Leatha DO Work Phone: [facility] 08-02-2024 15:36-0400 Systolic blood pressure 120 mm[Hg] Sarah Leatha DO Work Phone: [facility] 07-30-2024 10:08-0400 Body height 170.[address] [facility] 07-30-2024 10:08-0400 Body mass index (BMI) [Ratio] 26.2 kg/m2 [facility] 07-30-2024 10:08-0400 Body temperature 98.7 [degF] [facility] 07-30-2024 10:08-0400 Body weight 75.[address] [facility] 07-30-2024 10:08-0400 Diastolic blood pressure 69 mm[Hg] [facility] 07-30-2024 10:08-0400 Heart rate 95 /min [facility] 07-30-2024 10:08-0400 Respiratory rate 16 /min [facility] 07-30-2024 10:08-0400 SaO2% (BldA) [Mass fraction] 98 % [facility] 07-30-2024 10:08-0400 Systolic blood pressure 109 mm[Hg] [facility] 07-03-2024 10:12-0400 Body mass index (BMI) [Ratio] 24.54 kg/m2 [employer] DO Work Phone: [facility] 07-03-2024 10:12-0400 Body weight 74.3 kg Sarah Leatha [employer] Work Phone: [facility] 07-03-2024 10:12-0400 Diastolic blood pressure 64 mm[Hg] Sarah Leatha [employer] Work Phone: [facility] 07-03-2024 10:12-0400 Systolic blood pressure 116 mm[Hg] Sarah Leatha [employer] Work Phone: [facility] 06-02-2024 10:13-0400 Body mass index (BMI) [Ratio] 24.29 kg/m2 [facility] 06-02-2024 10:13-0400 Body weight 73.54 kg [facility] 06-02-2024 10:13-0400 Diastolic blood pressure 60 mm[Hg] [facility] 06-02-2024 10:13-0400 Systolic blood pressure 120 mm[Hg] [facility] 02-28-2024 16:23-0400 Body height 170.[address] [facility] 02-28-2024 16:23-0400 Body mass index (BMI) [Ratio] 23.8 kg/m2 [facility] 02-28-2024 16:23-0400 Body temperature 98.5 [degF] [facility] 02-28-2024 16:23-0400 Body weight 68.[address] [facility] 02-28-2024 16:23-0400 Diastolic blood pressure 64 mm[Hg] [facility] 02-28-2024 16:23-0400 Heart rate 82 /min [facility] 02-28-2024 16:23-0400 Respiratory rate 18 /min [facility] 02-28-2024 16:23-0400 SaO2% (BldA) [Mass fraction] 98 % [facility] 02-28-2024 16:23-0400 Systolic blood pressure 115 mm[Hg] [facility] 07-01-2023 09:35-0400 Body height 170.18 cm Cristina Selby Other [facility] [employer] Other 07-01-2023 09:35-0400 Body mass index (BMI) [Ratio] 26.47 kg/m2 Cristina Selby Other [employer] [employer] Other 07-01-2023 09:35-0400 Body temperature 98 [degF] Cristina Selby Other [employer] Other 07-01-2023 09:35-0400 Body weight 76.66 kg Cristina Selby Other [employer] Other 07-01-2023 09:35-0400 Respiratory rate 18 /min Cristina Selby Other [employer] Other 07-01-2023 09:35-0400 SaO2% (BldA) [Mass fraction] 98 % Cristina Selby Other [facility] [employer] Other Encounters Encounter Date Encounter Type Care Provider Facility Start: 10-02-2024 End: 10-02-2024 ambulatory SARAH LEATHA Not Available Start: 10-02-2024 End: 10-02-2024 flow sheet Sarah Leatha DO Work Phone: [facility] Comment on above: 26 weeks gestation o f ; Second trimester ; Diabetes mellitus screening; size inconsistent with dates Start: 08-30-2024 End: 08-30-2024 flow sheet Mora CHOUDHARY Work Phone: [facility] Comment on above: Second trimester pre gnancy; 21 weeks gestation of ; Encounter for follow-up ultrasound of anatomy Start: 08-30-2024 End: 08-30-2024 ambulatory MORA VÁSQUEZ Not Available Start: 08-30-2024 End: 08-30-2024 Bamboo flowsheet oMra CHOUDHARY Work Phone: [facility] [facility] Start: 08-30-2024 End: 08-30-2024 Bamboo flowsheet Mora CHOUDHARY Work Phone: [facility] Start: 08-02-2024 End: 08-02-2024 Patient encounter procedure Sarah Leatha DO Work Phone: [facility] Start: 08-02-2024 End: 08-02-2024 Periodic preventive med est patient 18-39 yrs Sarah Leatha DO Work Phone: [facility] Comment on above: 17 weeks [...] Bamboo flowsheet Sarah Leatha DO Work Phone: [facility] Start: 08-02-2024 End: 08-04-2024 Bamboo flowsheet Sarah Leatha DO Work Phone: [facility] Start: 08-02-2024 End: 08-03-2024 Clinisync Result Encounter Sarah Leatha DO Work Phone: [facility] External Department Unsolicited Start: 08-02-2024 End: 08-04-2024 External Result Encounter Sarah Leatha DO Work Phone: [facility] Unsolicited Start: 07-30-2024 End: 07-30-2024 ambulatory [facility] Work Phone: Start: 07-30-2024 End: 07-30-2024 Patient encounter procedure [facility] Work Phone: Start: 07-11-2024 End: 07-12-2024 Clinisync Result Encounter Generic External Data Provider [facility] Unsolicited Start: 07-11-2024 End: 07-12-2024 Clinisync Result Encounter Generic External Data Provider [facility] External [facility] Unsolicited Start: 07-03-2024 End: 07-03-2024 Bamboo flowsheet Sarah Leatha DO Work Phone: [facility] Start: 07-03-2024 End: 07-03-2024 Bamboo flowsheet Sarah Leatha DO Work Phone: [facility] Start: 07-03-2024 End: 07-03-2024 flow sheet Sarah Leatha DO Work Phone: [facility] Comment on above: Second trimester pre gnancy Start: 07-03-2024 End: 07-03-2024 ambulatory SARAH LEATHA Not Available Start: 06-02-2024 End: 06-02-2024 Office outpatient visit 5 minutes [facility] Leatha Nurse [facility] Comment on above: GA: 8w5d Start: 06-02-2024 End: 06-02-2024 ambulatory SARAH LEATHA Not Available Start: 02-28-2024 End: 02-28-2024 ambulatory [facility] Work Phone: Start: 02-28-2024 End: 02-28-2024 Patient encounter procedure [facility] Work Phone: Start: 07-01-2023 End: 07-01-2023 ambulatory Cristina Selby Other [facility] [employer] Other Start: 07-01-2023 Office outpatient ne w 20 minutes Cristina Selby [facility] Start: 08-21-2021 End: 08-21-[address] GIBSON GONZALES Facility:[facility]1 Procedures Date Procedure Procedure Detail Performing Clinician Start: 10-02-2024 Urnls dip stick/tabl et rgnt non-auto w/o micrscp Sarah Leatha DO Work Phone: Start: 08-02-2024 Urnls dip stick/tabl et rgnt non-auto w/o micrscp Sarah Leatha DO Work Phone: Start: 08-02-2024 URETHRITIS/DISCHARGE PLUS VAGINITIS (HTRX) Sarah Leatha DO Work Phone: Start: 08-02-2024 TB DRUG SCREEN RAPI D (URINE) Sarah Leatha DO Work Phone: Start: 07-11-2024 ALL CBC WITH AUTO DIFF Sarah Leatha DO Work Phone: Start: 07-03-2024 Urnls dip stick/tabl et rgnt non-auto w/o micrscp Sarah Leatha DO Work Phone: Start: 06-02-2024 Urine test visual color cmprsn meths Sarah Leatha DO Work Phone: Start: 02-28-2024 Quick Strep (POC) Plan of Treatment Date Care Activity Detail Author Start: 11-01-2024 End: 11-01-2024 Professional / ancillary services management 11/01/2024 3:00 PM EST Ancillary Procedure [facility] [address] [place] [address] [facility] Start: 10-19-2024 End: 10-19-2024 Patient encounter procedure 10/19/2024 3:40 PM EST Routine [facility] [address] [place] [id number] Mora Vásquez PA [address] [place] [address] [facility] Start: 10-02-2024 End: 10-02-2025 CBC panel - Blood by Automated count CBC Lab Routine Diabetes mellitus screening Expected: 10/02/2024 (Approximate), Expires: 10/02/2025 [facility] Work Phone: Comment on above: Expected: 10/02/2024 (Approximate), Expires: 10/02/2025 Start: 10-02-2024 End: 10-02-2025 Measurement of glucose 1 hour after glucose challenge for glucose tolerance test Glucose tolerance, 1 hour Lab Routine Diabetes mellitus screening Expected: 10/02/2024 (Approximate), Expires: 10/02/2025 [facility] Comment on above: Expected: 10/02/2024 (Approximate), Expires: 10/02/2025 Start: 10-02-2024 End: 10-02-2025 US for US OB SCAN FOR GROWTH Imaging Routine size inconsistent with dates Expected: 10/02/2024 (Approximate), Expires: 10/02/2025 [facility] Comment on above: Expected: 10/02/2024 (Approximate), Expires: 10/02/2025 Start: 08-30-2024 End: 08-30-2024 Patient encounter procedure [facility] Comment on above: Arrived Start: 08-30-2024 End: 08-30-2025 US for US OB INCOMPLETE ANATOMY Imaging Routine Encounter for follow-up ultrasound of anatomy Expected: 08/30/2024 (Approximate), Expires: 08/30/2025 [facility] Work Phone: Comment on above: Expected: 08/30/2024 (Approximate), Expires: 08/30/2025 Start: 08-02-2024 End: 08-02-2024 Patient encounter procedure [facility] Comment on above: Arrived Start: 08-02-2024 End: 09-02-2024 Alpha fetoprotein, maternal Alpha fetoprotein, maternal Lab Routine Exposure to STD Expected: 08/02/2024 (Approximate), Expires: 09/02/2024 [facility] Comment on above: Expected: 08/02/2024 (Approximate), Expires: 09/02/2024 Start: 08-02-2024 End: 08-02-2025 Drugs of abuse panel - Urine by Screen method Rapid drug screen, urine Lab Routine , unspecified gestational age Encounter for supervision of normal first in first trimester Expected: 08/02/2024 (Approximate), Expires: 08/02/2025 [facility] Comment on above: Expected: 08/02/2024 (Approximate), Expires: 08/02/2025 Start: 08-02-2024 End: 08-02-2025 US for US OB ANATOMY SINGLE W US OB CERVICAL LENGTH Imaging Routine Screening, , for anatomic survey Expected: 08/02/2024 (Approximate), Expires: 08/02/2025 [facility] Comment on above: Expected: 08/02/2024 (Approximate), Expires: 08/02/2025 Start: 07-03-2024 End: 07-03-2024 Patient encounter procedure [facility] Comment on above: Arrived Start: 06-11-2024 Influenza vaccination Influenza Vacc ine (#1) [facility] Start: 06-02-2024 End: 06-02-2025 ABO/Rh ABO/Rh Lab Routine Missed menses Expected: 06/02/2024 (Approximate), Expires: 06/02/2025 [facility] Comment on above: Expected: 06/02/2024 (Approximate), Expires: 06/02/2025 Start: 06-02-2024 End: 06-02-2025 Blood type and Indirect antibody screen panel - Blood Type and screen Lab Routine Missed menses Expected: 06/02/2024 (Approximate), Expires: 06/02/2025 [facility] Work Phone: Comment on above: Expected: 06/02/2024 (Approximate), Expires: 06/02/2025 Start: 06-02-2024 End: 06-02-2025 US Pelvis transvaginal US OB transvaginal Imaging Routine Missed menses Expected: 06/02/2024 (Approximate), Expires: 06/02/2025 [facility] Comment on above: Expected: 06/02/2024 (Approximate), Expires: 06/02/2025 Bacteria identified in Urine by Culture Urine culture Microbiology Routine Missed menses Ordered: 06/02/2024 [facility] Comment on above: Ordered: 06/02/2024 CBC W Auto Different ial panel - Blood CBC and differential Lab Routine Missed menses Ordered: 06/02/2024 [facility] Comment on above: Ordered: 06/02/2024 CHLAMYDIA TRACHOMATI S (GENITO/STI) CHLAMYDIA TRACHOMATIS (GENITO/STI) Lab Routine Exposure to STD Ordered: 08/02/2024 [facility] Comment on above: Ordered: 08/02/2024 Cytology Cervical or vaginal smear or scraping study Pap Smear Pathology and Cytology Routine Well woman exam with routine gynecological exam Ordered: 08/02/2024 [facility] Work Phone: Comment on above: Ordered: 08/02/2024 Hemoglobin A1c/Hemoglobin.total in Blood Hemoglobin A1c Lab Routine Missed menses Ordered: 06/02/2024 [facility] Comment on above: Ordered: 06/02/2024 Hepatitis B virus surface Ag [Presence] in Serum or Plasma by Immunoassay Hepatitis B surface antigen Lab Routine Missed menses Ordered: 06/02/2024 [facility] Comment on above: Ordered: 06/02/2024 Hepatitis C virus Ab [Presence] in Serum or Plasma by Immunoassay Hepatitis C antibody Lab Routine Missed menses Ordered: 06/02/2024 [facility] Comment on above: Ordered: 06/02/2024 HIV-1/HIV-2 antigen/antibody combination immunoassay HIV-1 and HIV-2 antibodies Lab Routine Missed menses Ordered: 06/02/2024 [facility] Comment on above: Ordered: 06/02/2024 Neisseria gonorrhoea e DNA [Presence] in Unspecified specimen by STEVE with probe detection Neisseria gonorrhea DNA probe, direct Lab Routine Exposure to STD Ordered: 08/02/2024 [facility] Comment on above: Ordered: 08/02/2024 Reagin Ab [Presence] in Serum by RPR RPR Lab Routine Missed menses Ordered: 06/02/2024 [facility] Comment on above: Ordered: 06/02/2024 Rubella antibody, IgG Rubella an tibody, IgG Lab Routine Missed menses Ordered: 06/02/2024 [facility] Comment on above: Ordered: 06/02/2024 SURESWAB(R) ADVANCED VAGINITIS PLUS, TMA SURESWAB(R) ADVANCED VAGINITIS PLUS, TMA Pathology and Cytology Routine Vaginal discharge Ordered: 08/02/2024 [facility] Comment on above: Ordered: 08/02/2024 Immunizations Immunization Date Immunization Notes Care Provider Fa cility 07-14-2021 influenza, injectabl e, quadrivalent, preservative free [facility] 07-14-2021 influenza virus vacc ine, unspecified formulation [facility] 08-12-2020 influenza, injectabl e, quadrivalent, preservative free [facility] Nurse [facility] 12-04-2019 Influenza, injectabl e, Madin Lauren Canine Kidney, preservative free, quadrivalent [facility] 08-17-2018 seasonal influenza, intradermal, preservative free [facility] 08-04-2017 seasonal influenza, intradermal, preservative free [facility] Nurse [facility] 04-08-2017 meningococcal oligos accharide (groups A, C, Y and W-135) diphtheria toxoid conjugate vaccine (MCV4O) [facility] 07-20-2016 influenza, injectabl e, quadrivalent, preservative free [facility] Nurse [facility] 07-24-2015 influenza, seasonal, injectable, preservative free [facility] 07-23-2015 influenza, injectabl e, quadrivalent, preservative free [facility] 09-08-2012 influenza, seasonal, injectable, preservative free [facility] 05-16-2012 tetanus toxoid, redu eugenio diphtheria toxoid, and acellular pertussis vaccine, adsorbed [facility] Nurse [facility] 02-02-2012 human papilloma viru s vaccine, quadrivalent [facility] 10-29-2011 human papilloma viru s vaccine, quadrivalent [facility] 07-01-2011 human papilloma viru s vaccine, quadrivalent [facility] 08-25-2010 influenza virus vacc ine, whole virus [facility] 06-03-2005 diphtheria, tetanus toxoids and acellular pertussis vaccine, unspecified formulation [facility] 06-03-2005 measles, mumps and r ubella virus vaccine [facility] 06-03-2005 poliovirus vaccine, inactivated [facility] 12-06-2000 diphtheria, tetanus toxoids and acellular pertussis vaccine, unspecified formulation [facility] 12-06-2000 haemophilus influenz ae type b vaccine, conjugate unspecified formulation [facility] 12-06-2000 measles, mumps and r ubella virus vaccine [facility] 12-06-2000 poliovirus vaccine, inactivated [facility] 1999 diphtheria, tetanus toxoids and acellular pertussis vaccine, unspecified formulation [facility] Nurse [facility] 1999 haemophilus influenz ae type b vaccine, conjugate unspecified formulation [facility] Nurse [facility] 1999 hepatitis B vaccine, pediatric or pediatric/adolescent dosage [facility] 1999 poliovirus vaccine, inactivated [facility] 1999 diphtheria, tetanus toxoids and acellular pertussis vaccine, unspecified formulation [facility] Nurse [facility] 1999 haemophilus influenz ae type b vaccine, conjugate unspecified formulation [facility] 1999 hepatitis B vaccine, pediatric or pediatric/adolescent dosage [facility] 1999 poliovirus vaccine, inactivated [facility] 1999 diphtheria, tetanus toxoids and acellular pertussis vaccine, unspecified formulation [facility] Nurse [facility] 1999 haemophilus influenz ae type b vaccine, conjugate unspecified formulation [facility] 1999 hepatitis B vaccine, pediatric or pediatric/adolescent dosage [facility] poliovirus vaccine, inactivated [facility] Nurse [facility] Payers Date Payer Category Payer Private Health Insurance [employer] [id number] 2023 Unknown [id number] 2023 Unknown [id number] 1999 Unknown [id number] 1999 Unknown [id number] 1999 Unknown [id number] 1999 Unknown [id number] 1999 Unknown [id number] 1999 Unknown [id number] 1959 Unknown [id number] Unknown PROFEE O [id number] Social History Date Type Detail Facility Unknown if ever smoked [employer] Other Start: 08-17-2023 End: 06-02-2024 Sex Assigned At [facility] Other Start: 04-07-2023 End: 02-28-2024 Tobacco smoking status NHIS Never smoked tobacco (finding) [facility] Start: 1999 Sex Assigned At Female F [facility] Start: 04-07-2023 Tobacco use and exposure Smokeless tobacco non-user [facility] Start: 07-03-2024 End: 10-02-2024 Alcoholic beverage intake Ex-drinker (finding) [facility] Start: 08-17-2023 End: 06-02-2024 History of Social function [facility] Start: 05-14-2023 Alcohol Comment Caffeine intak e: 1-2 cups per day [facility] Start: 04-16-2024 [facility] Start: 1999 Sex assigned at Not on file [facility] Clinical Notes 07-01-2023 to 10-02-2024 Marzena Brewer LPN - 10/02/2024 3:50 PM FUNMI Mckeon - 08/30/2024 2:50 PM Nataly Neil LPN - 08/02/2024 3:20 PM Florence Brewer [facility] - 07/03/2024 9:50 AM EDT Note Date & Type Note Facility 10-02-2024 History of Presen t illness Narrative Reason for Appointment: Patient ID: Viri Dao is a 24 y.o. female who presents for Routine Visit Patient presents today for Return OB appointment. MEDICATIONS No current outpatient [...] SYSTEMS Review of Systems: Review of Systems All other systems reviewed and are negative. OBJECTIVE Objective: Physical Exam Constitutional: Appearance: Normal appearance. She is well-developed. Cardiovascular: Rate and Rhythm: Normal rate and [...] nursing note reviewed. Exam conducted with a cafeteria team leader present. Vitals: Estimated body mass index is 27.14 kg/m as calculated from the following: Height as of 07/13/23: 5' 8.5 . Weight as of this encounter: 181 lb 1.9 oz. BP: 110/64 Patient's last menstrual period was 04/02/2024. ASSESSMENT & PLAN ICD-10-CM 1. 26 weeks gestation of Z3A.26 POCT urinalysis dipstick manually resulted 2. Second trimester Z34.92 POCT urinalysis dipstick manually resulted 3. Diabetes mellitus screening Z13.1 CBC Glucose tolerance, 1 hour CBC Glucose tolerance, 1 hour Patient presents today for a routine obstetrics appointment. Patient is currently 26w1d with a Estimated Date of Delivery: 01/07/25. Growth scan given to patient to have scheduled at 30 weeks gestation. Documented by Marzena Brewer LPN on behalf of: Sarah Zhang DO documented in this encounter [facility] 08-30-2024 History of Presen t illness Narrative Reason for Appointment: Patient ID: Viri Dao is a 24 y.o. female who presents for Routine Visit Patient presents today for Return OB appointment. MEDICATIONS No current outpatient [...] Objective: Physical Exam Constitutional: Appearance: Normal appearance. HENT: Head: Normocephalic. Nose: Nose normal. Mouth/Throat: Mouth: Mucous membranes are moist. Cardiovascular: Rate and Rhythm: Normal rate. Pulmonary: Effort: Pulmonary effort is normal. Abdominal: General: Bowel sounds are normal. Palpations: Abdomen is soft. Musculoskeletal: General: Normal range of motion. Cervical back: Normal range of motion. Neurological: General: No focal deficit present. Mental Status: She is alert. Skin: General: Skin is warm and dry. Psychiatric: Mood and Affect: Mood normal. Vitals and nursing note reviewed. Exam conducted with a cafeteria team leader present. Vitals: Estimated body mass index is 25.74 kg/m as calculated from the following: Height as of 07/13/23: 5' 8.5 . Weight as of this encounter: 171 lb 12.8 oz. BP: 122/68 Patient's last menstrual period was 04/02/2024. ASSESSMENT & PLAN ICD-10-CM 1. Second trimester Z34.92 2. 21 weeks gestation of Z3A.21 3. Encounter for follow-up ultrasound of anatomy Z36.2 US OB INCOMPLETE ANATOMY Return OB: Patient presents today for a routine obstetrics appointment. Patient is currently 21w3d . Patient states she is doing well but has complaints of being tired due to current . Patient has verbalizes frequent movement. Orders Placed This Encounter Procedures US OB INCOMPLETE ANATOMY Follow Up: Patient is to return to office in 4 week for routine OB appointment. Documented by FUNMI Martinez on behalf of: FUNMI Martinez documented in this encounter [facility] 08-02-2024 History of Presen t illness Narrative [...] nursing note reviewed. Exam conducted with a cafeteria team leader present. Vitals: Estimated body mass index is [...] Sarah Zhang DO documented in this encounter [facility] 07-03-2024 History of Presen t illness Narrative Reason for Appointment: Patient ID: Viri Dao is a 24 y.o. female who presents for Routine Visit Patient presents today for Return OB appointment. MEDICATIONS No current outpatient [...] SYSTEMS Review of Systems: Review of Systems All other systems reviewed and are negative. OBJECTIVE Objective: Physical Exam Constitutional: Appearance: Normal appearance. She is well-developed. Cardiovascular: Rate and Rhythm: Normal rate and [...] nursing note reviewed. Exam conducted with a cafeteria team leader present. Vitals: Estimated body mass index is 24.54 kg/m as calculated from the following: Height as of 07/13/23: 5' 8.5 . Weight as of this encounter: 163 lb 12.8 oz. BP: 116/64 Patient's last menstrual period was 04/02/2024. ASSESSMENT & PLAN ICD-10-CM 1. Second trimester Z34.92 Urine dip New OB: Patient presents today for 1st time obstetrics appointment with provider. Patient is currently 13w1d . Patients history has been reviewed in great detail including any potential risks. Patient stated she currently has no complaints. Expectations throughout regarding labs, ultrasounds, and appointments have been discussed with the patient in detail. It was reiterated that the patient is to drink 6-8 glasses of water a day, eat 6 small meals a day, do not consume raw or undercooked meat, and stay away from [facility]. Patient has been consulted regarding any further do's and don'ts of . Patient voiced understanding and all questions and concerns were answered. Discussed patients history of Asthma and patient voiced it was exercise induced and has not had any issues. Patient voiced that she had food poisoning, but better now. Patient has not had initial OB labs drawn at this time. Orders Placed This Encounter Procedures Urine dip Follow Up: Patient is to return in 4 weeks for routine OB/ Annual appointment. Documented by Marzena Brewer LPN on behalf of: Sarah Zhang DO documented in this encounter [facility] 06-02-2024 History of Presen t illness Narrative Reason for Appointment: Patient ID: Viri Dao is a 24 y.o. female who presents for Amenorrhea Patient presents today for a Nurse OB Intake appointment. Patient is 8w5d with a Estimated Date of Delivery: 01/07/25 OB History Para Term AB Living 1 SAB IAB Ectopic Multiple Live Births # Outcome Date GA Lbr Karthik/2nd Weight Sex Type Anes PTL Lv 1 Current Current Medications: currently has no medications in their medication list. Medical History: Active Ambulatory Problems Diagnosis Date Noted Abnormal uterine bleeding 04/07/2023 Irregular menses 04/07/2023 Seasonal allergic rhinitis 04/07/2023 Sinusitis 04/07/2023 Resolved Ambulatory Problems Diagnosis Date Noted No Resolved Ambulatory Problems Past Medical History: Diagnosis Date Allergic Asthma, exercise induced (CMS/HCC) H/O CT scan 08/12/2020 Family History Problem Relation Name Age of Onset Coronary artery disease Other Other (H1N1) Other Hypertension Other Hyperlipidemia Other Cancer Other Diabetes Other Social History Tobacco Use Smoking status: Never Smokeless tobacco: Never Substance Use Topics Alcohol use: Not Currently Comment: Caffeine intake: 1-2 cups per day Drug use: Never History reviewed. No pertinent surgical history. No Known Allergies Vitals: Estimated body mass index is 24.29 kg/m as calculated from the following: Height as of 07/13/23: 5' 8.5 . Weight as of this encounter: 162 lb 1.9 oz. BP: 120/60 Patient's last menstrual period was 04/02/2024. Assessment/Plan Diagnoses and all orders for this visit: Missed menses - Type and screen; Future - ABO/Rh; Future - CBC and differential - Hemoglobin A1c - RPR - Rubella antibody, IgG - Hepatitis B surface antigen - Hepatitis C antibody - HIV-1 and HIV-2 antibodies - Urine culture - US OB transvaginal; Future - POCT , urine manually resulted - POCT urinalysis dipstick manually resulted Nurse Note: OB Intake: Patient presents today for first OB visit. Patients history has been reviewed in great detail including any potential risks. Patient signed consent forms and patient desires testing in both trimesters. Patient currently has no complaints and has been advised to drink 6-8 glasses of water a day, eat no raw or undercooked meat, and stay away from [facility]. Patient has also been advised to not change litter boxes and eat 6 small meals a day. Patient has been consulted regarding the do's and don'ts of . Patient was given labs and all questions and concerns were answered. Follow Up: Patient is to return in 4 weeks for routine OB appointment. Follow Up: Patient is to have labs drawn at directed and return to office for initial OB appointment with provider. Patient may call office as needed with any concerns or questions. Nurse Visit Completed by: Laney Stein LPN documented in this encounter [facility] 07-01-2023 Evaluation note Encounter Date Diagnosis Assessment [...] Suspected COVID-19 virus infection (ICD-10 - Z20.822) [employer] Other evaluation noteNo assessment information available [facility] Work Phone: evaluation note* Diagnosis Onset Date Resolution Status Acute sinusitis with symptoms greater than 10 days acute [facility] Work Phone: evaluation note* Diagnosis 17 weeks gestation of Second trimester state, incidental Screening, , for anatomic survey Encounter for anatomic survey , unspecified gestational age Encounter for supervision of normal first in first trimester Well woman exam with routine gynecological exam Routine gynecological examination Exposure to STD Vaginal discharge Leukorrhea, not specified as infective [facility] Second trimester state, incidental 21 weeks gestation of Encounter for follow-up ultrasound of anatomy [facility] Missed [facility]enses [facility] Second [facility] state, incidental [facility] Diagnosis 26 weeks gestation of Second trimester state, incidental Diabetes mellitus screening Screening for diabetes mellitus size inconsistent with dates documented in this encounter [facility] Summary [...] and content) DATE CREATED AUTHOR [facility]/22/2021 [facility] DATE CREATED AUTHOR AUTHOR'S ORGANIZ ATION 08/27/2021 [facility] DATE CREATED AUTHOR AUTHOR'S ORGANIZ ATION 10/05/2024 [facility] EPIC REASON FOR VISIT (unrecogniz ed section and content) Reason Comments Routine Visit Reason Comments Amenorrhea Care Teams (unrecognized sec tion and content) Team Status: Active Member Role Status Dates Gibson Gonzales MD Primary Care Provider Active Team Status: Inactive Member Role Status Dates Gibson Gonzales MD Primary Care Provider Active S tart: February 28, 2024 End: February 28, 2024 Connie Marmolejo APRN Attending Provider Active S tart: February 28, 2024 End: February 28, 2024 Commissioning Agent Relationship Specialty Start Date End Date Gibson Gonzales MD [address] [facility] [address] [place] [address] PCP - General Family Medicine 04/07/23 Team Status: Inactive Member Role Status Dates Gibson Gonzales MD Primary Care Provider Active S tart: July 30, 2024 End: July 30, 2024 Cristina Selby APRN Attending Provider Active Start: July 30, 2024 End: July 30, 2024 Commissioning Agent Relationship Specialty Start Date End Date Gibson Gonzales MD [address] [facility] [address] [place] [address] PCP - General Family Medicine 04/07/23 Commissioning Agent Relationship Specialty Start Date End Date Gibson Gonzales MD [address] [facility] [address] [place] [address] PCP - [facility] 04/07/23 Commissioning Agent Relationship Specialty Start Date End Date Gibson Gonzales MD [address] [facility] [address] [place] [address] PCP - [facility] 04/07/23 Commissioning Agent Relationship Specialty Start Date End Date Gibson Gonzales MD [address] [facility] [address] [place] [address] PCP - [facility] 04/07/23 Commissioning Agent Relationship Specialty Start Date End Date Gibson Gonzales MD [address] [facility] [address] [place] [address] PCP - [facility] 04/07/23 Commissioning Agent Relationship Specialty Start Date End Date Gibson Gonzales MD [address] [facility] [address] [place] [address] PCP - [facility] 04/07/23 Goals (unrecognized section and content) Goals [...] BE BASED ON THE PRIMARY CLINICAL RECORDS. [employer] [facility]. provides no warranty or guarantee of the accuracy or completeness of information in this document.
[2024-10-13 11:07] LABS: Basophils Percent Auto 0.4 % (0.2-2.0); Eosinophils Absolute Auto 0.2 10^3/uL (0.0-0.7); Eosinophils Percent Auto 1.6 % (0.9-7.0); Hematocrit 35.6 % (36.0-48.0); Hemoglobin 12.3 g/dL (12.0-16.0); Immature Granulocytes Abs Auto 0.11 10^3/uL (0.00-0.03); Immature Granulocytes Pct Auto 1.1 % (0.0-0.5); Lymphocytes Absolute Auto 1.5 10^3/uL (1.2-3.8); Mean Corpuscular HGB Conc 34.6 g/dL (29.9-35.2); Mean Corpuscular Hemoglobin 31.4 pg (26.7-34.0); Mean Corpuscular Volume 90.8 fL (81.0-99.0); Mean Platelet Volume 11.6 fL (9.5-13.5); Monocytes Absolute Auto 0.4 10^3/uL (0.3-0.8); Monocytes Percent Auto 4.6 % (1.7-12.0); Neutrophils Absolute Auto 7.5 10^3/uL (1.4-6.5); Neutrophils Percent Auto 77.3 % (43.0-75.0); Platelet Count 199 10^3/uL (150-450); Red Blood Count 3.92 10^6/uL (4.20-5.40); Red Cell Distribution Width 12.5 % (11.0-15.0); White Blood Count 9.7 10^3/uL (4.0-11.0)
[2024-10-13 11:10] LABS: Glucose 1 Hour 124 mg/dL (<130)
== END 2024-10-13 09:30 | disposition home or self-care (01) ==
LOC: LAB 09:31
PROVIDERS: PCP Family Medicine; Visit Provider Obstetrics & Gynecology
DX: Z13.1 Encounter for screening for diabetes mellitus (principal)
CPT/HCPCS: 36415; 82950; 85025

== ENCOUNTER 2024-10-18 11:49 | Outpatient (OUT) | payer OTHER, SELFPAY ==
[2024-10-18 11:59] VITALS: BP 139/72; PULSE 80
== END 2024-10-18 13:00 | disposition home or self-care (01) ==
LOC: FBCO 11:50 → FBC 11:51
PROVIDERS: PCP Family Medicine; Visit Provider Obstetrics & Gynecology
DX: O36.8190 Decreased fetal movements, unspecified trimester, not applicable or unspecified (principal)
CPT/HCPCS: 59025

== ENCOUNTER 2024-10-30 03:42 | Observation (INO) | payer OTHER, SELFPAY ==
[2024-10-30] VITALS (15 sets, daily range): BP systolic 125–188; BP diastolic 65–91; PULSE 60–68; TEMP 36.6
--- OUTSIDE RECORDS SUMMARY | 2024-10-30 03:47 | XMS_ITS | CCD ---
Author Organization [facility] Care Team Providers Care Athletic Team Physician Name Role Phone CHRISTIAN, DR ASUCEDA Attending Unavailable CHRISTIAN, DR SAUCEDA Consulting Unavailable CHRISTIAN, DR SAUCEDA Admitting Unavailable Cristina Selby Unavailable Gibson Gonzales MD Primary Care Provider [phone] SARAH ZHANG Attending Unavailable SARAH ZHANG Attending Unavailable MORA VÁSQUEZ Attending Unavailable SARAH ZHANG Attending Unavailable MORA VÁSQUEZ Attending Unavailable Medications Current Medications Medication Drug [...] oral tablet (1 source) alpha-Adrenergic Agonist, Uncompetitive N-fhkapc-B-asparta te Receptor Antagonist, Sigma-1 Agonist Start: 07-01-2023 [...] 91 tablet 3 10/18/2023 06/02/2024 Discontinued Pnv #06-Sbln-Tlite Acid-Omega3 (1 source) Start: 07-30-2024 Pnv #65-[id number]-Wlwwz Acid-Omega3 Active CAP PO July 30, 2024 [...] mode of transmission] 08-02-2024 Episodic Menstrual disorders (19 sources) Irregular periods; Translations: [Irregular menstruation, unspecified] Onset: 04-07-2023 04-07-2023 Chronic Other complications of (2 sources) size does not accord with dates; Translations: [Uterine size-date discrepancy, unspecified trimester] 10-02-2024 Episodic Other female genital disorders (18 sources) Abnormal uterine bleeding; Translations: [Abnormal uterine and vaginal bleeding, unspecified] Onset: 04-07-2023 04-07-2023 Chronic Other female genital disorders (2 sources) Vaginal discharge; Translations: [Other specified noninflammatory disorders of vagina] 08-02-2024 Episodic Other and delivery including normal (16 sources) Second trimester ; Translations: [Encounter for supervision of normal , unspecified, second trimester] Onset: 10-19-2024 08-02-2024 Episodic Other screening for suspected conditions (not mental disorders or infectious disease) (6 sources) Patient encounter status; Translations: [Encounter for other specified screening] 08-02-2024 Episodic Other upper respiratory disease (18 sources) Seasonal allergic rhinitis; Translations: [Other seasonal allergic rhinitis] Onset: 04-07-2023 04-07-2023 Chronic Other upper respiratory infections (18 sources) Sinusitis; Translations: [Chronic sinusitis, unspecified] Onset: [...] [26 weeks gestation of ] 10-02-2024 Episodic Residual codes; unclassified (4 sources) Gestation period, 28 weeks; Translations: [28 weeks gestation of ] Onset: 10-19-2024 10-19-2024 Episodic Past or Other Problems Problem Classification Problem Date Documented Da te Episodic/Chronic Unclassified (1 source) Suspected COVID-19 virus infection Z20.822 Results Test Name Value Interpretation Reference Range Facility Urinalysis macro (dipstick) panel (U)on 10-19-2024 Bilirubin, UA Negative Negative - 4(70) +++ mg/dL [facility] Blood, UA Negative Negative - 50 Warren/mcL [facility] Clarity, UA Clear [facility] re Color, UA Yellow [facility] Glucose, UA Negative Negative - 1999(110) ++++ mg/dL [facility] Interpretation and review of laboratory results Abnormal [facility] Ketones, UA Negative Negative - 160(16) ++++ mg/dL [facility] Leukocytes, UA Moderate Negative - 500+++ Jamaal/mcL [facility] Nitrite, UA Negative Negative - Positive [facility] pH, UA 7 5 - 9 [facility] e Protein, UA Negative Negative - 1999(20) ++++ mg/dL [facility] Spec Grav, UA 1.015 1 - 1.03 [facility] Urobilinogen, UA 0.2 0.2 - 12 mg/dL [facility] ALL CBC WITH AUTO DIFFon BASOPHILS ABSOLUTE AUTO 0 [facility] Basophils/100 WBC (Bld) 0.4 % 0.2 - 2.0 % [facility] Eosinophils/100 WBC (Bld) 1.6 % 0.9 - 7.0 % [facility] Erythrocyte distribution width (RBC) [Ratio] 12.5 % 11.0 - 15.0 % [facility] Hematocrit (Bld) [Volume fraction] 35.6 % Low 36.0 - 48.0 % [facility] Hemoglobin (Bld) [Mass/Vol] 12.3 g/dL 12.0 - 16.0 g/dL [facility] IMMATURE GRANULOCYTES ABS AUTO 0.11 High [facility] Immature granulocytes/100 WBC (Bld) 1.1 % High 0.0 - 0.5 % [facility] Interpretation and review of laboratory results Abnormal [facility] LYMPHOCYTES ABSOLUTE AUTO 1.5 [facility] Lymphocytes/100 WBC (Bld) 15 % Low 20.5 - 60.0 % [facility] MCH (RBC) [Entitic mass] 31.4 pg 26.7 - 34.0 pg [facility] MCHC (RBC) [Mass/Vol] 34.6 g/dL 29.9 - 35.2 g/dL [facility] MCV (RBC) [Entitic vol] 90.8 fL 81.0 - 99.0 fL [facility] MONOCYTES ABSOLUTE AUTO 0.4 [facility] Monocytes/100 WBC (Bld) 4.6 % 1.7 - 12.0 % [facility] NEUTROPHILS ABSOLUTE AUTO 7.5 High [facility] Neutrophils/100 WBC (Bld) 77.3 % High 43.0 - 75.0 % [facility] Platelet mean volume (Bld) [Entitic vol] 11.6 fL 9.5 - 13.5 fL [facility] EO # [facility].2 [facility] TB PLT 199 [facility] e TB RBC 3.92 Low [facility] TB[facility] WBC 9[facility]7 [facility] Urinalysis macro (dipstick) panel (U)on 10-02-2024 Bilirubin, UA Negative Negative - 4(70) +++ mg/dL [facility] Blood, UA Negative Negative - 50 Warren/mcL [facility] Clarity, UA Clear [facility] re Color, UA Yellow [facility] Glucose, UA Negative Negative - 1999(110) ++++ mg/dL [facility] Interpretation and review of laboratory results Abnormal [facility] Ketones, UA Negative Negative - 160(16) ++++ mg/dL [facility] Leukocytes, UA Moderate Negative - 500+++ Jamaal/mcL [facility] Nitrite, UA Negative Negative - Positive [facility] pH, UA 7 5 - 9 [facility] e Protein, UA Negative Negative - 1999(20) ++++ mg/dL [facility] Spec Grav, UA 1.02 1 - 1.03 [facility] Urobilinogen, UA 0.2 0.2 - 12 mg/dL [facility] e URETHRITIS/DISCHARGE PLUS VA GINITIS (HTRX)on 08-04-2024 ATOPOBIUM VAGINAE 0 [facility] althcare ATOPOBIUM VAGINAE Not detected [facility] BVAB 2,3 (BACTERIAL VAGINOSIS ASSOCIATED BACTERIA 2, 3); MOBILUNCUS SPP 0 [facility] BVAB 2,3 (BACTERIAL VAGINOSIS ASSOCIATED BACTERIA 2, 3); MOBILUNCUS SPP Not detected [facility] AMERICA ALBICANS, PARAPSILOSIS, TROPICALIS 30.391 Abnormal [facility] AMERICA ALBICANS, PARAPSILOSIS, TROPICALIS Detected Abnormal [facility] [place] GLABRATA 0 [facility] [place] GLABRATA Not detected [facility] [place] KRUSEI Not detected [facility] CHLAMYDIA TRACHOMATIS 0 [facility] S Healthcare CHLAMYDIA TRACHOMATIS Not detected N [facility] Healthcare GARDNERELLA VAGINALIS 0 [facility] Healthcare GARDNERELLA VAGINALIS Not detected N [facility] Interpretation and review of laboratory results Abnormal [facility] MEGASPHAERA (TYPES 1, 2) 0 [facility] MEGASPHAERA (TYPES 1, 2) Not detected [facility] MYCOPLASMA GENITALIUM 0 [facility] S Healthcare MYCOPLASMA GENITALIUM Not detected N [facility] NEISSERIA GONORRHOEAE 0 [facility] NEISSERIA GONORRHOEAE Not detected N [facility] Healthcare TRICHOMONAS VAGINALIS 0 [facility] S Healthcare TRICHOMONAS VAGINALIS Not detected N [facility] TBH DRUG SCREEN RAPID (URINE )on 08-03-2024 AMPHETAMINE SCREEN URINE Negative NEGATIVE [facility] BARBITURATES SCREEN URINE Negative NEGATIVE [facility] BENZODIAZEPINES SCREEN URINE Negative NEGATIVE [facility] BUPRENORPHINE SCREEN URINE Negative NEGATIVE [facility] Comment on above: DRUG CLASS TEST SYST [...] 300 ng/mL CANNABINOID SCREEN URINE Negative NEGATIVE [facility] COCAINE SCREEN URINE Negative NEGATIVE [facility] METHADONE SCREEN URINE Negative NEGATIVE NO [facility] METHAMPHETAMINES SCREEN URINE Negative NEGATIVE [facility] OPIATE SCREEN URINE Negative NEGATIVE [facility] OXYCODONE SCREEN URINE Negative NEGATIVE NO [facility] PHENCYCLIDINE SCREEN URINE Negative NEGATIVE [facility] TRICYCLIC ANTIDEPRESSANT URINE Negative NEGATIVE [facility] REFLEX IF POSITIVE [facility] Urinalysis macro (dipstick) panel (U)on 08-02-2024 Bilirubin, UA Negative Negative - (70) +++ mg/dL [facility] Blood, UA Negative Negative - 50 Warren/mcL [facility] Clarity, UA Clear [facility] re Color, UA Yellow [facility] Glucose, UA Negative Negative - 1999(110) ++++ mg/dL [facility] Interpretation and review of laboratory results Abnormal [facility] Ketones, UA Negative Negative - 160(16) ++++ mg/dL [facility] Leukocytes, UA Positive Negative - 500+++ Jamaal/mcL [facility] Comment on above: small Nitrite, UA Negative Negative - Positive [facility] pH, UA 6 5 - 9 [facility] e Protein, UA Negative Negative - 1999(20) ++++ mg/dL [facility] Spec Grav, UA 1.03 1 - 1.03 [facility] Urobilinogen, UA 0.2 0.2 - 12 mg/dL [facility] ALL CBC WITH AUTO DIFFon BASOPHILS ABSOLUTE AUTO 0.1 [facility] Basophils/100 WBC (Bld) 0.7 % 0.2 - 2.0 % [facility] Eosinophils/100 WBC (Bld) 2.1 % 0.9 - 7.0 % [facility] Erythrocyte distribution width (RBC) [Ratio] 12.7 % 11.0 - 15.0 % [facility] Hematocrit (Bld) [Volume fraction] 36.7 % 36.0 - 48.0 % [facility] Hemoglobin (Bld) [Mass/Vol] 12.6 g/dL 12.0 - 16.0 g/dL [facility] IMMATURE GRANULOCYTES ABS AUTO 0.04 High [facility] Immature granulocytes/100 WBC (Bld) 0.4 % 0.0 - 0.5 % [facility] Interpretation and review of laboratory results Abnormal [facility] LYMPHOCYTES ABSOLUTE AUTO 2.0 [facility] Lymphocytes/100 WBC (Bld) 18.5 % Low 20.5 - 60.0 % [facility] MCH (RBC) [Entitic mass] 29.8 pg 26.7 - 34.0 pg [facility] MCHC (RBC) [Mass/Vol] 34.3 g/dL 29.9 - 35.2 g/dL [facility] MCV (RBC) [Entitic vol] 86.8 fL 81.0 - 99.0 fL [facility] MONOCYTES ABSOLUTE AUTO 0.6 [facility] Monocytes/100 WBC (Bld) 5.9 % 1.7 - 12.0 % [facility] NEUTROPHILS ABSOLUTE AUTO 7.8 High [facility] Neutrophils/100 WBC (Bld) 72.4 % 43.0 - 75.0 % [facility] Platelet mean volume (Bld) [Entitic vol] 10.7 fL 9.5 - 13.5 fL [facility] TBH EO # 0.2 [facility] TB PLT 226 [facility] TB RBC 4.23 [facility] TBH WBC 10.7 [facility] Urinalysis macro (dipstick) panel (U)on 07-03-2024 Bilirubin, UA Negative Negative - 4(70) +++ mg/dL [facility] Blood, UA Negative Negative - 50 Warren/mcL [facility] Clarity, UA Clear [facility] re Color, UA Yellow [facility] e Glucose, UA Negative Negative - 1999(110) ++++ mg/dL [facility] Interpretation and review of laboratory results Abnormal [facility] Ketones, UA Negative Negative - 160(16) ++++ mg/dL [facility] Leukocytes, UA Few Negative - 500+++ Jamaal/mcL [facility] Nitrite, UA Negative Negative - Positive [facility] pH, UA 5.5 5 - 9 [facility] Protein, UA Negative Negative - 1999(20) ++++ mg/dL [facility] Spec Grav, UA 1.020 1 - 1.03 [facility] Urobilinogen, UA 1.0 0.2 - 12 mg/dL [facility] HCG ( test) Ql (U)o n 06-02-2024 Interpretation and review of laboratory results Abnormal [facility] Preg Test, Ur Positive [facility] No Panel InformationOrdered By: Connie Marmolejo on 02-28-2024 Quick Strep (POC) [facility] COVID/FLU RT-PCRon 3 SARS-CoV-2 (COVID-19) RNA STEVE+probe Ql (Unsp spec) Negative [facility] Other COVID/FLU RT-PCR Negative [facility] [employer] Other Quick Strepon 07-01-2023 S. pyogenes Org specific cx Ql (Throat) Negative [facility] [employer] Other Quick Strep [facility] [employer] Other RESPIRATORY PANEL PLUSon Adenovirus Not detected Normal NOT DETECTED [facility] Comment on above: Performed By: #### R SPLUS #### [facility] [address] [place] [address] Dr. Pedro Luis Mckeon Parapertusis Not detected Normal NOT DETECTED [facility] Comment on above: Performed By: #### R SPLUS #### [facility] [address] [place] [address] Dr. Pedro Luis Mckeon Pertussis Not detected Normal NOT DETECTED [facility] Comment on above: Performed By: #### R SPLUS #### [facility] [address] [place] [address] Dr. Pedro Luis Luis Chlamydia Pneumoniae Not detected Normal NOT DETECTED [facility] Comment on above: Performed By: #### R SPLUS #### [facility] [address] [place] [address] Dr. Pedro Luis Luis Coronavirus 229E Not detected Normal NOT DETECTED [facility] Comment on above: Performed By: #### R SPLUS #### [facility] [address] [place] [address] Dr. Pedro Luis Lius Coronavirus HKU1 Not detected Normal NOT DETECTED [facility] Comment on above: Performed By: #### R SPLUS #### [facility] [address] [place] [address] Dr. Pedro Luis Luis Coronavirus NL63 Not detected Normal NOT DETECTED [facility] Comment on above: Performed By: #### R SPLUS #### [facility] [address] [place] [address] Dr. Pedro Luis Luis Coronavirus OC43 Not detected Normal NOT DETECTED [facility] Comment on above: Performed By: #### R SPLUS #### [facility] [address] [place] [address] Dr. Pedro Luis Luis Influenza A H1 2009 Not detected Normal NOT DETECTED [facility] Comment on above: Performed By: #### R SPLUS #### [facility] [address] [place] [address] Dr. Pedro Luis Luis Influenza B Not detected Normal NOT DETECTED [facility] Comment on above: Performed By: #### R SPLUS #### [facility] [address] [place] [address] Dr. Pedro Luis Luis Metapneumovirus Not detected Normal NOT DETECTED [facility] Comment on above: Performed By: #### R SPLUS #### [facility] [address] [place] [address] Dr. Pedro Luis Luis Mycoplas. Pneumoniae Not detected Normal NOT DETECTED [facility] Comment on above: Performed By: #### R SPLUS #### [facility] [address] [place] [address] Dr. Pedro Luis Luis Parainfluenza 1 Not detected Normal NOT DETECTED [facility] Comment on above: Performed By: #### R SPLUS #### [facility] [address] [place] [address] Dr. Pedro Luis Luis Parainfluenza 2 Not detected Normal NOT DETECTED [facility] Comment on above: Performed By: #### R SPLUS #### [facility] [address] [place] [address] Dr. Pedro Luis Luis Parainfluenza 3 Not detected Normal NOT DETECTED [facility] Comment on above: Performed By: #### R SPLUS #### [facility] [address] [place] [address] Dr. Pedro Luis Luis Parainfluenza 4 Not detected Normal NOT DETECTED [facility] Comment on above: Performed By: #### R SPLUS #### [facility] [address] [place] [address] Dr. Pedro Luis Luis Rhino/Enterovirus Not detected Normal NOT DETECTED [facility] Comment on above: Performed By: #### R SPLUS #### [facility] [address] [place] [address] Dr. Pedro Luis Luis RP2 Header 1 RESPIRATORY PANEL: VIRUSES Normal [facility] Comment on above: Performed By: #### R SPLUS #### [facility] [address] [place] [address] Dr. Pedro Luis Luis RP2 Header 2 RESPIRATORY PANEL: BACTERIA Normal [facility] Comment on above: Performed By: #### R SPLUS #### [facility] [address] [place] [address] Dr. Pedro Luis Luis RSV Not detected Normal NOT DETECTED [facility] Comment on above: Performed By: #### R SPLUS #### [facility] [address] [place] [address] Dr. Pedro Luis Luis SARS-CoV-2 (COVID-19) RNA STEVE+probe Ql (Unsp spec) Not detected Normal NOT DETECTED [facility] Comment on above: Performed By: #### R SPLUS #### [facility] [address] [place] [address] Dr. Pedro Luis Luis Family Medicine Video Visit - Telehealthon 08-20-2021 Family Medicine Video Visit - Telehealth Chief Complaint SATURATION DIVER cough, congestion, sore throat- no voice HPI [...] gargles as needed. May use rx of [place] for symptomatic tx. Follow up with PCP if not improving over next 7 days or significantly worsening symptoms. Parent verbalized understanding and is agreeable with tx plan. This visit was conducted via two-way, real-time interactive video communications from my office using [employer] due to the restrictions of the COVID-19 pandemic. No physical exam was conducted other than those areas of the body visible to telecommunications with the patient located at [address] [place], [place] [id number], with spouse in attendance. If it is [...] for 5 day(s), 300 mL, Refill(s) 0, [facility] #[facility], 169, cm, 08/20/21 17:56:00 EST, Height/Length Dosing, 68.4, kg, 08/20/21 17:56:00 EST, Weight Dosing 2. Cough (R05.9: Cough, unspecified) See above treatment plan Ordered: dextromethorphan-pyri ria, 20 mL, Oral, q8hr for 5 day(s), 300 mL, Refill(s) 0, [employer] #72, 169, cm, 08/20/21 17:56:00 EST, Height/Length Dosing, 68.4, kg, 08/20/21 17:56:00 EST, Weight Dosing Follow-up With When Contact Information Aydee Munoz, [facility] Only if needed Additional Instructions: Patient Education Cool Mist Vaporizer Problem List/Past Medical History Ongoing No chronic problems Historical No qualifying data Medications [place] DM 7.5 mg-7.5 mg/5 mL oral liquid, 20 mL, Oral, q8hr Allergies No Known Allergies No Known Medication Allergies Social History Tobacco Never (less than 100 in lifetime) Tobacco Use:. Never Smokeless Tobacco Use:., 08/20/2021 [facility] Comment on above: Result Comment: Elec [...] 06/24/2005 Document Revised: 10/14/2017 Document Reviewed: 12/26/2016 [employer] Patient Education ? 2019 [employer] [facility] Vital Signs Date Time Vital Sign Value Performing Clinician Facility 10-19-2024 15:36-0500 Body mass index (BMI) [Ratio] 27.87 kg/m2 Mora CHOUDHARY Work Phone: [facility] 10-19-2024 15:36-0500 Body weight 84.37 kg Mora CHOUDHARY Work Phone: [facility] 10-19-2024 15:36-0500 Diastolic blood pressure 70 mm[Hg] Mora CHOUDHARY Work Phone: [facility] 10-19-2024 15:36-0500 Systolic blood pressure 118 mm[Hg] Mora CHOUDHARY Work Phone: [facility] 10-02-2024 16:23-0500 Body mass index (BMI) [Ratio] 27.14 kg/m2 Sarah Leatha DO Work Phone: [facility] 10-02-2024 16:23-0500 Body weight 82.16 kg Sarah Leatha DO Work Phone: [facility] 10-02-2024 16:23-0500 Diastolic blood pressure 64 mm[Hg] Sarah Leatha DO Work Phone: [facility] 10-02-2024 16:23-0500 Systolic blood pressure 110 mm[Hg] Sarah Leatha DO Work Phone: [facility] 08-30-2024 14:58-0500 Body mass index (BMI) [Ratio] 25.74 kg/m2 Mora Vásquez PA Work Phone: [facility] 08-30-2024 14:58-0500 Body weight 77.93 kg Mora Terrance PA Work Phone: [facility] 08-30-2024 14:58-0500 Diastolic blood pressure 68 mm[Hg] Mora Vásquez PA Work Phone: [facility] 08-30-2024 14:58-0500 Systolic blood pressure 122 mm[Hg] Mora Vásquez PA Work Phone: [facility] 08-02-2024 15:36-0400 Body mass index (BMI) [Ratio] 25.38 kg/m2 Sarah Leatha DO Work Phone: [facility] 08-02-2024 15:36-0400 Body weight 76.84 kg Sarah Leatha DO Work Phone: [facility] 08-02-2024 15:36-0400 Diastolic blood pressure 64 mm[Hg] Sarah Leatha DO Work Phone: [facility] 08-02-2024 15:36-0400 Systolic blood pressure 120 mm[Hg] Sarah Leatha DO Work Phone: [facility] 07-30-2024 10:08-0400 Body height 170.18 cm [facility] 07-30-2024 10:08-0400 Body mass index (BMI) [Ratio] 26.2 kg/m2 [facility] 07-30-2024 10:08-0400 Body temperature 98.7 [degF] [facility] 07-30-2024 10:08-0400 Body weight 75.74 kg [facility] 07-30-2024 10:08-0400 Diastolic blood pressure 69 mm[Hg] [facility] 07-30-2024 10:08-0400 Heart rate 95 /min [facility] 07-30-2024 10:08-0400 Respiratory rate 16 /min [facility] 07-30-2024 10:08-0400 SaO2% (BldA) [Mass fraction] 98 % [facility] 07-30-2024 10:08-0400 Systolic blood pressure 109 mm[Hg] [facility] 07-03-2024 10:12-0400 Body mass index (BMI) [Ratio] 24.54 kg/m2 Sarah Leatha DO Work Phone: [facility] 07-03-2024 [id number] Body weight 74.3 kg Sarah Leatha DO Work Phone: [facility] 07-03-2024 10:12-0400 Diastolic blood pressure 64 mm[Hg] aBIZinaBOXo DO Work Phone: [facility] 07-03-2024 10:12-0400 Systolic blood pressure 116 mm[Hg] GenVault DO Work Phone: [facility] 06-02-2024 10:13-0400 Body mass index (BMI) [Ratio] 24.29 kg/m2 [facility] 06-02-2024 10:13-0400 Body weight 73.54 kg [facility] Nurse [facility] 06-02-2024 10:13-0400 Diastolic blood pressure 60 mm[Hg] [facility] 06-02-2024 10:13-0400 Systolic blood pressure 120 mm[Hg] [facility] 02-28-2024 16:23-0400 Body height 170.18 cm [facility] 02-28-2024 16:23-0400 Body mass index (BMI) [Ratio] 23.8 kg/m2 [facility] 02-28-2024 16:23-0400 Body temperature 98.5 [degF] [facility] 02-28-2024 16:23-0400 Body weight 68.94 kg [facility] 02-28-2024 16:23-0400 Diastolic blood pressure 64 mm[Hg] [facility] 02-28-2024 16:23-0400 Heart rate 82 /min [facility] 02-28-2024 16:23-0400 Respiratory rate 18 /min [facility] 02-28-2024 16:23-0400 SaO2% (BldA) [Mass fraction] 98 % [facility] 02-28-2024 16:23-0400 Systolic blood pressure 115 mm[Hg] [facility] 07-01-2023 09:35-0400 Body height 170.18 cm Cristina Selby Other [facility] Other 07-01-2023 09:35-0400 Body mass index (BMI) [Ratio] 26.47 kg/m2 Cristina Selby Other [facility] Other 07-01-2023 09:35-0400 Body temperature 98 [degF] Cristina Selby Other [facility] Other 07-01-2023 09:35-0400 Body weight 76.66 kg Cristina Selby Other [facility] Other 07-01-2023 09:35-0400 Respiratory rate 18 /min Cristina Selby Other [facility] Other 07-01-2023 09:35-0400 SaO2% (BldA) [Mass fraction] 98 % Cristina Selby Other [facility] Other Encounters Encounter Date Encounter Type Care Provider Facility Start: 10-19-2024 End: 10-19-2024 flow sheet Mora Vásquez PA Work Phone: [facility] Comment on above: 28 weeks gestation o f ; Third trimester Start: 10-19-2024 End: 10-19-2024 ambulatory MORA VÁSQUEZ Not Available Start: 10-13-2024 End: 10-13-2024 [facility] Result Encounter Generic External Data Provider [facility] External Department Unsolicited Start: 10-13-2024 End: 10-13-2024 Clinisync Result Encounter Generic External Data Provider [facility] External Department Unsolicited Start: 10-02-2024 End: 10-02-2024 ambulatory SARAH LEATHA Not Available Start: 10-02-2024 End: 10-02-2024 flow sheet Sarah Leatha DO Work Phone: [facility] Comment on above: 26 weeks gestation o f ; Second trimester ; Diabetes mellitus screening; size inconsistent with dates Start: 08-30-2024 End: 08-30-2024 flow sheet Mora CHOUDHARY Work Phone: [facility] Comment on above: Second trimester pre gnancy; 21 weeks gestation of ; Encounter for follow-up ultrasound of anatomy Start: 08-30-2024 End: 08-30-2024 ambulatory MORA VÁSQUEZ Not Available Start: 08-30-2024 End: 08-30-2024 Bamboo flowsheet Mora CHOUDHARY Work Phone: [facility] Start: 08-30-2024 End: 08-30-2024 Bamboo flowsheet Mora CHOUDHARY Work Phone: [facility] Start: 08-02-2024 End: 08-02-2024 Patient encounter procedure Sarah Leatha DO Work Phone: [facility] Start: 08-02-2024 End: 08-02-2024 Periodic preventive med est patient 18-39 yrs Sarah Leatha DO Work Phone: [facility] Comment on above: 17 [...] Department Unsolicited Start: 07-30-2024 End: 07-30-2024 ambulatory [facility] Work Phone: Start: 07-30-2024 End: 07-30-2024 Patient encounter procedure [facility] [place] Work Phone: [...] Not Available Start: 02-28-2024 End: 02-28-2024 ambulatory [facility] Work Phone: Start: 02-28-2024 End: 02-28-2024 Patient encounter procedure [facility] [place] Work Phone: Start: 07-01-2023 End: 07-01-2023 ambulatory Cristina Sleby Other [employer] Other Start: 07-01-2023 Office outpatient ne w 20 minutes Cristina Selby [facility] [place] Start: 08-21-2021 End: 08-21-[address] GIBSON GONZALES Facility: Procedures Date Procedure Procedure Detail Performing Clinician Start: 10-19-2024 Urnls dip stick/tabl et rgnt non-auto w/o micrscp Mora CHOUDHARY Work Phone: Start: 10-13-2024 ALL CBC WITH AUTO DIFF Generic External Data Provider Start: 10-02-2024 Urnls dip stick/tabl et rgnt non-auto w/o micrscp Sarah Leatha DO Work Phone: Start: 08-02-2024 Urnls dip stick/tabl et rgnt non-auto w/o micrscp Sarah Leatha DO Work Phone: Start: 08-02-2024 URETHRITIS/DISCHARGE PLUS VAGINITIS (HTRX) Sarah Leatha DO Work Phone: Start: 08-02-2024 [facility] DRUG SCREEN RAPI D (URINE) Sarah Leatha [...] Treatment Date Care Activity Detail Author Start: 11-08-2024 End: 11-08-2024 Patient encounter procedure 11/08/2024 3:20 PM EST Routine [facility] [address] [facility] [place] [address] Sarah Zhang DO [address] [place], [place] [address], [place] [id number] [facility] Start: 11-01-2024 End: 11-01-2024 Professional / ancillary services management 11/01/2024 3:00 PM EST Ancillary Procedure [facility] [address] [place] [id number] [facility] Start: 10-19-2024 End: 10-19-2024 Patient encounter procedure 10/19/2024 3:40 PM EST Routine [facility] [address] [facility] [place] [place] [id number] Mora Vásquez PA [address] [facility] [address] [place] [address] [facility] Start: 10-02-2024 End: 10-02-2025 CBC panel - Blood by Automated count CBC Lab Routine Diabetes mellitus screening Expected: 10/02/2024 (Approximate), Expires: 10/02/2025 [facility] Work Phone: Comment on above: Expected: 10/02/2024 (Approximate), Expires: 10/02/2025 Start: 10-02-2024 End: 10-02-2025 Measurement of glucose 1 hour after glucose challenge for glucose tolerance test Glucose tolerance, 1 hour Lab Routine Diabetes mellitus screening Expected: 10/02/2024 (Approximate), Expires: 10/02/2025 [facility] Comment on above: Expected: 10/02/2024 (Approximate), Expires: 10/02/2025 Start: 10-02-2024 End: 10-02-2025 US for US OB SCAN FOR GROWTH Imaging Routine size inconsistent with dates Expected: 10/02/2024 (Approximate), Expires: 10/02/2025 [facility] Comment on above: Expected: 10/02/2024 (Approximate), Expires: 10/02/2025 Start: 08-30-2024 End: 08-30-2024 Patient encounter procedure [facility] Comment on above: Arrived Start: 08-30-2024 End: 08-30-2025 US for US OB INCOMPLETE ANATOMY Imaging Routine Encounter for follow-up ultrasound of anatomy Expected: 08/30/2024 (Approximate), Expires: 08/30/2025 [facility] Work Phone: Comment on above: [...] 06-11-2024 Influenza vaccination Influenza Vacc ine (#1) [facility] Start: 06-02-2024 End: 06-02-2025 ABO/Rh ABO/Rh Lab Routine Missed menses Expected: 06/02/2024 (Approximate), Expires: 06/02/2025 [facility] Comment on above: Expected: 06/02/2024 (Approximate), Expires: 06/02/2025 Start: 06-02-2024 End: 06-02-2025 Blood type and Indirect antibody screen panel - Blood Type and screen Lab Routine Missed menses Expected: 06/02/2024 (Approximate), Expires: 06/02/2025 [facility] Work Phone: Comment on above: Expected: 06/02/2024 (Approximate), Expires: 06/02/2025 Start: 06-02-2024 End: 06-02-2025 US Pelvis transvaginal US OB transvaginal Imaging Routine Missed menses Expected: 06/02/2024 (Approximate), Expires: 06/02/2025 [facility] Comment on above: Expected: 06/02/2024 (Approximate), Expires: 06/02/2025 Bacteria identified in Urine by Culture Urine culture Microbiology Routine Missed menses Ordered: 06/02/2024 [facility] Comment on above: Ordered: 06/02/2024 CBC W Auto Different ial panel - Blood CBC and differential Lab Routine Missed menses Ordered: 06/02/2024 [facility] Comment on above: Ordered: 06/02/2024 CHLAMYDIA TRACHOMATI S (GENITO/STI) CHLAMYDIA TRACHOMATIS (GENITO/STI) Lab Routine Exposure to STD Ordered: 08/02/2024 [facility] Comment on above: Ordered: 08/02/2024 Cytology Cervical or vaginal smear or scraping study Pap Smear Pathology and Cytology Routine Well woman exam with routine gynecological exam Ordered: 08/02/2024 [facility] Work Phone: Comment on above: Ordered: 08/02/2024 Hemoglobin A1c/Hemoglobin.total in Blood Hemoglobin A1c Lab Routine Missed menses Ordered: 06/02/2024 [facility] Comment on above: Ordered: 06/02/2024 Hepatitis B virus surface Ag [Presence] in Serum or Plasma by Immunoassay Hepatitis B surface antigen Lab Routine Missed menses Ordered: 06/02/2024 [facility] Comment on above: Ordered: 06/02/2024 Hepatitis C virus Ab [Presence] in Serum or Plasma by Immunoassay Hepatitis C antibody Lab Routine Missed menses Ordered: 06/02/2024 [facility] Comment on above: Ordered: 06/02/2024 HIV-1/HIV-2 antigen/antibody combination immunoassay HIV-1 and HIV-2 antibodies Lab Routine Missed menses Ordered: 06/02/2024 [facility] Comment on above: Ordered: 06/02/2024 Neisseria gonorrhoea e DNA [Presence] in Unspecified specimen by STEVE with probe detection Neisseria gonorrhea DNA probe, direct Lab Routine Exposure to STD Ordered: 08/02/2024 [facility] Comment on above: Ordered: 08/02/2024 Reagin Ab [Presence] in Serum by RPR RPR Lab Routine Missed menses Ordered: 06/02/2024 [facility] Comment on above: Ordered: 06/02/2024 Rubella antibody, IgG Rubella an tibody, IgG Lab Routine Missed menses Ordered: 06/02/2024 [facility] Comment on above: Ordered: 06/02/2024 SURESWAB(R) ADVANCED VAGINITIS PLUS, TMA SURESWAB(R) ADVANCED VAGINITIS PLUS, TMA Pathology and Cytology Routine Vaginal discharge Ordered: 08/02/2024 [facility] Comment on above: Ordered: 08/02/2024 Immunizations Immunization Date Immunization Notes Care Provider Fa cility 07-14-2021 influenza, injectabl e, quadrivalent, preservative free [facility] 07-14-2021 influenza virus vacc ine, unspecified formulation [facility] 08-12-2020 influenza, injectabl e, quadrivalent, preservative free [facility] 12-04-2019 Influenza, injectabl e, [facility] [place] [facility], preservative free, quadrivalent [facility] 08-17-2018 seasonal influenza, intradermal, preservative free [facility] 08-04-2017 seasonal influenza, intradermal, preservative free [facility] 06-29-2017 meningococcal oligos accharide (groups A, C, Y and W-135) diphtheria toxoid conjugate vaccine (MCV4O) [facility] 07-20-2016 influenza, injectabl e, quadrivalent, preservative free [facility] 07-24-2015 influenza, seasonal, injectable, preservative free [facility] 07-23-2015 influenza, injectabl e, quadrivalent, preservative free [facility] 09-08-2012 influenza, seasonal, injectable, preservative free [facility] 05-16-2012 tetanus toxoid, redu eugenio diphtheria toxoid, and acellular pertussis vaccine, adsorbed [facility] 02-02-2012 human papilloma viru s vaccine, quadrivalent [facility] 10-29-2011 human papilloma viru s vaccine, quadrivalent [facility] 07-01-2011 human papilloma viru s vaccine, quadrivalent [facility] 08-25-2010 influenza virus vacc ine, whole virus [facility] 06-03-2005 diphtheria, tetanus toxoids and acellular pertussis vaccine, unspecified formulation [facility] 06-03-2005 measles, mumps and r ubella virus vaccine [facility] 06-03-2005 poliovirus vaccine, inactivated [facility] 12-06-2000 diphtheria, tetanus toxoids and acellular pertussis vaccine, unspecified formulation [facility] 12-06-2000 haemophilus influenz ae type b vaccine, conjugate unspecified formulation [facility] 12-06-2000 measles, mumps and r ubella virus vaccine [facility] 12-06-2000 poliovirus vaccine, inactivated [facility] 1999 diphtheria, tetanus toxoids and acellular pertussis vaccine, unspecified formulation [facility] 1999 haemophilus influenz ae type b vaccine, conjugate unspecified formulation [facility] 1999 hepatitis B vaccine, pediatric or pediatric/adolescent dosage [facility] 1999 poliovirus vaccine, inactivated [facility] 1999 diphtheria, tetanus toxoids and acellular pertussis vaccine, unspecified formulation [facility] 1999 haemophilus influenz ae type b vaccine, conjugate unspecified formulation [facility] 1999 hepatitis B vaccine, pediatric or pediatric/adolescent dosage [facility] 1999 poliovirus vaccine, inactivated [facility] 1999 diphtheria, tetanus toxoids and acellular pertussis vaccine, unspecified formulation [facility] 1999 haemophilus influenz ae type b vaccine, conjugate unspecified formulation [facility] 1999 hepatitis B vaccine, pediatric or pediatric/adolescent dosage [facility] 1999 poliovirus vaccine, inactivated [facility] Payers Date Payer Category Payer [facility] [employer] [id number] 2023 Unknown [id number] 2023 Unknown [id number] 1999 Unknown [id number] 1999 Unknown [id number] [id number] 1999 Unknown [id number] [id number] 1999 Unknown [id number] [id number] 1999 Unknown [id number] [id number] 1999 Unknown [id number] 1259 1999 Unknown [id number] [id number] 1959 Unknown [id number] Unknown [place] [facility] [id number] Social History Date Type Detail Facility Unknown if ever smoked [facility] [employer] Other Start: 08-17-2023 End: 06-02-2024 Sex Assigned At [facility] [email or web address] Other Start: 04-07-2023 End: 02-28-2024 Tobacco smoking status NHIS Never smoked tobacco (finding) [facility] Start: 2000 Sex Assigned At Female F [facility] Start: 04-07-2023 Tobacco use and exposure Smokeless tobacco non-user [facility] Start: 07-03-2024 End: 10-02-2024 Alcoholic beverage intake Ex-drinker (finding) [facility] Start: 08-17-2023 End: 06-02-2024 History of Social function [facility] Start: 05-14-2023 Alcohol Comment Caffeine intak e: 1-2 cups per day [facility] Start: 04-16-2024 [facility] Start: 2000 Sex assigned at Not on file [facility] Clinical Notes 07-01-2023 to 10-19-2024 FUNMI Martinez - 10/19/2024 3:40 PM Lexi Brewer LPN - 10/02/2024 3:50 PM FUNMI Mckeon - 08/30/2024 2:50 PM Nataly Neil LPN - 08/02/2024 3:20 PM EDT Note Date & Type Note Facility 10-19-2024 History of Presen t illness Narrative Reason for Appointment: Patient ID: Viri Dao is a 24 y.o. female who presents for Routine Visit Patient presents today for Return OB appointment. MEDICATIONS No current outpatient medications ALLERGIES No Known Allergies PROBLEMS Active Ambulatory Problems Diagnosis Date Noted Abnormal uterine bleeding 04/07/2023 Irregular menses 04/07/2023 Seasonal allergic rhinitis 04/07/2023 Sinusitis 04/07/2023 28 weeks gestation of 10/19/2024 Third trimester 10/19/2024 Resolved Ambulatory Problems Diagnosis Date Noted No [...] Other Cancer Other Diabetes Other SURGICAL HISTORY No past surgical history on file. REVIEW OF SYSTEMS Review of Systems: Review of Systems Constitutional: Negative. HENT: Negative. Eyes: Negative. Respiratory: Negative. Cardiovascular: Negative. Gastrointestinal: Negative. Genitourinary: Negative. Musculoskeletal: Negative. Skin: Negative. Neurological: Negative. All other systems reviewed and are negative. Hematological: Negative. Endocrine: Negative. Allergic/Immunologic: Negative. OBJECTIVE Objective: Physical Exam Constitutional: Appearance: Normal appearance. She is normal weight. HENT: Head: Normocephalic. Cardiovascular: Rate and Rhythm: Normal rate. Pulses: Normal pulses. Pulmonary: Effort: Pulmonary effort is normal. Breath sounds: Normal breath sounds. Abdominal: Palpations: Abdomen is soft. Musculoskeletal: General: Normal range of motion. Neurological: General: No focal deficit present. Mental Status: She is alert and oriented to person, place, and time. Psychiatric: Mood and Affect: Mood normal. Behavior: Behavior normal. Thought Content: Thought content normal. Judgment: Judgment normal. Vitals and nursing note reviewed. Vitals: Estimated body mass index is 27.14 kg/m as calculated from the following: Height as of 07/13/23: 5' 8.5 . Weight as of 10/02/24: 181 lb 1.9 oz. BP: Patient's last menstrual period was 04/02/2024. ASSESSMENT & PLAN ICD-10-CM 1. 28 weeks gestation of Z3A.28 POCT urinalysis dipstick manually resulted 2. Third trimester Z34.93 POCT urinalysis dipstick manually resulted Return OB: Patient presents today for a routine obstetrics appointment. Patient is currently 28w4d . Patient states she is doing well but has complaints of being tired due to current . Patient has verbalizes frequent movement. labor precautions was discussed/given and patient was instructed to perform kick counts three times a day. Orders Placed This Encounter Procedures POCT urinalysis dipstick manually resulted Follow Up: Patient is to return to office in 2 week for routine OB appointment. Documented by Rose Britton MA on behalf of: FUNMI Martinez documented in this encounter [facility] 10-02-2024 History of Presen t illness Narrative [...] nursing note reviewed. Exam conducted with a product craftsman present. Vitals: Estimated body mass index is [...] Sarah Zhang DO documented in this encounter [facility] 08-30-2024 History of Presen t illness Narrative [...] nursing note reviewed. Exam conducted with a product craftsman present. Vitals: Estimated body mass index is [...] of: FUNMI Martinez documented in this encounter [facility] 08-02-2024 History of Presen t illness Narrative [...] nursing note reviewed. Exam conducted with a product craftsman present. Vitals: Estimated body mass index is [...] Sarah Zhang DO documented in this encounter [facility] 07-03-2024 History of Presen t illness Narrative [...] nursing note reviewed. Exam conducted with a product craftsman present. Vitals: Estimated body mass index is [...] or undercooked meat, and stay away from [facility]. Patient has been consulted regarding any [...] Sarah Zhang DO documented in this encounter [facility] 06-02-2024 History of Presen t illness Narrative [...] or undercooked meat, and stay away from [facility]. Patient has also been advised to [...] Laney Stein LPN documented in this encounter [facility] 07-01-2023 Evaluation note Encounter Date Diagnosis Assessment [...] Suspected COVID-19 virus infection (ICD-10 - Z20.822) [employer] Other [employer] noteNo assessment information available [facility] Work Phone: evaluation note* Diagnosis Onset Date Resolution Status Acute sinusitis with symptoms greater than 10 days acute [facility] Work Phone: Evaluvnodg note* Diagnosis 17 weeks gestation of Second trimester state, incidental Screening, , for anatomic survey Encounter for anatomic survey , unspecified gestational age Encounter for supervision of normal first in first trimester Well woman exam with routine gynecological exam Routine gynecological examination Exposure to STD Vaginal discharge Leukorrhea, not specified as infective [facility] Diagnosis Second trimester state, incidental 21 weeks gestation of Encounter for follow-up ultrasound of anatomy [facility] Missed menses [facility]* Diagnosis Second trimester state, incidental [facility] Diagnosis 26 weeks gestation of Second trimester state, incidental Diabetes mellitus screening Screening for diabetes mellitus size inconsistent with dates [facility] Diagnosis 28 weeks gestation of Third trimester state, incidental documented in this encounter [facility] Summary [...] and content) DATE CREATED AUTHOR 08/22/2021 [facility] DATE CREATED AUTHOR AUTHOR'S ORGANIZ ATION 08/27/2021 [facility] DATE CREATED AUTHOR AUTHOR'S ORGANIZ ATION 10/24/2024 [facility] d[facility] Specialists EPIC REASON FOR VISIT [...] February 28, 2024 End: February 28, 2024 Athletic Team Physician Relationship Specialty Start Date End Date Gibson Gonzales MD [address] [facility] [address] [place] [address] PCP - General Family Medicine 04/07/23 Team Status: Inactive Member Role Status Dates Gibson Gonzales MD Primary Care Provider Active S tart: July 30, 2024 End: July 30, 2024 Cristina Selby APRN Attending Provider Active Start: July 30, 2024 End: July 30, 2024 Athletic Team Physician Relationship Specialty Start Date End Date Gibson Gonzales MD [address] [facility] [address] [place] [address] PCP - General Family Medicine 04/07/23 Athletic Team Physician Relationship Specialty Start Date End Date Gibson Gonzales MD [address] [facility] [address] [place] [address] PCP - [facility] 04/07/23 Athletic Team Physician Relationship Specialty Start Date End Date Gibson Gonzales MD [address] [facility] [address] [place] [address] PCP - [facility] 04/07/23 Athletic Team Physician Relationship Specialty Start Date End Date Gibson Gonzales MD [address] [facility] [address] [place] [address] PCP - [facility] 04/07/23 Athletic Team Physician Relationship Specialty Start Date End Date Gibson Gonzales MD [address] [facility] [address] [place] [address] PCP - [facility] 04/07/23 Athletic Team Physician Relationship Specialty Start Date End Date Gibson Gonzales MD [address] [facility] [address] [place] [address] PCP - [facility] 04/07/23 Athletic Team Physician Relationship Specialty Start Date End Date Gibson Gonzales MD [address] [facility] [address] [place] [address] PCP - [facility] 04/07/23 Goals (unrecognized section and content) Goals [...] BE BASED ON THE PRIMARY CLINICAL RECORDS. [employer] a Division of [employer] [facility]. provides no warranty or guarantee of the accuracy or completeness of information in this document.
[2024-10-30 04:15] LABS: Bilirubin Urine NEGATIVE (NEGATIVE); Blood Urine NEGATIVE (NEGATIVE); Clarity Urine CLEAR (CLEAR); Color Urine LT. YELLOW (YELLOW); Glucose Urine UA NEGATIVE (NEGATIVE); Ketones Urine NEGATIVE (NEGATIVE); Leukocyte Esterase Urine TRACE (NEGATIVE); Nitrite Urine NEGATIVE (NEGATIVE); Protein Urine 30 mg/dL (NEG/TRACE); Specific Gravity Urine >=1.030 (1.005-1.025); Urobilinogen Urine 0.2 EU/dL (0.2-1.0)
[2024-10-30 04:16] LABS: Urine Microscopic Indicated YES
[2024-10-30 04:23] LABS: Bacteria Urine SMALL #/HPF (NONE SEEN); Cast Seen? NONE SEEN #/LPF (NONE SEEN); Crystals Seen? None Seen #/HPF (None Seen); Mucus Urine NONE SEEN (NONE SEEN); RBC Urine 0-2 #/HPF (0-2); Squamous Epithelial Cell Urine FEW #/LPF (NONE/RARE); Urine Culture Indicated YES
[2024-10-30 05:07] LABS: Basophils Absolute Auto 0.1 10^3/uL (0.0-0.1); Basophils Percent Auto 0.5 % (0.2-2.0); Eosinophils Absolute Auto 0.2 10^3/uL (0.0-0.7); Eosinophils Percent Auto 1.6 % (0.9-7.0); Hematocrit 35.6 % (36.0-48.0); Hemoglobin 12.6 g/dL (12.0-16.0); Immature Granulocytes Abs Auto 0.25 10^3/uL (0.00-0.03); Immature Granulocytes Pct Auto 2.1 % (0.0-0.5); Lymphocytes Absolute Auto 1.9 10^3/uL (1.2-3.8); Mean Corpuscular HGB Conc 35.4 g/dL (29.9-35.2); Mean Corpuscular Hemoglobin 31.3 pg (26.7-34.0); Mean Corpuscular Volume 88.3 fL (81.0-99.0); Mean Platelet Volume 11.6 fL (9.5-13.5); Monocytes Absolute Auto 0.9 10^3/uL (0.3-0.8); Monocytes Percent Auto 7.4 % (1.7-12.0); Neutrophils Absolute Auto 8.5 10^3/uL (1.4-6.5); Neutrophils Percent Auto 72.4 % (43.0-75.0); Platelet Count 176 10^3/uL (150-450); Red Blood Count 4.03 10^6/uL (4.20-5.40); Red Cell Distribution Width 12.4 % (11.0-15.0); White Blood Count 11.8 10^3/uL (4.0-11.0)
[2024-10-30] MEDS: BETAMETHASONE ACE/BETAMETHASONE SOD PHOS 30 MG/5 ML 12 MG IM (05:08)
[2024-10-30] MEDS: 0.9 % SODIUM CHLORIDE 1,000 ML 125 ML IV (05:08)
[2024-10-30 05:17] LABS: Creatinine Urine Random 176.19 mg/dL (20.00-300.00); Protein Creatinine Ratio Urine 0.32; Total Protein Urine Random 56.3 mg/dL (<=11.9)
[2024-10-30 05:21] LABS: Lactate Dehydrogenase 229 U/L (81-234)
[2024-10-30 05:27] LABS: Fibrinogen 415 mg/dL (200-400); INR <0.93; Partial Thromboplastin Time 23.9 sec (22.3-36.2); Prothrombin Time 9.5 sec (9.0-11.6)
[2024-10-30] MEDS: AMPICILLIN SODIUM 2,000 MG in 0.9 % SODIUM CHLORIDE 100 ML 200 MG IV (06:46)
--- NOTE | 2024-10-30 06:59 | US_ITS ---
[place] [id number] Patient Name: SORAIDA VALENCIA MRN: [id number] date: 2000 Sex: F Assigned Patient Location: [facility] Current Patient Location: [facility] Accession/Order Number: [id number] Exam Date: 10/30/2024 07:00 Report Date: 10/30/2024 09:11 At the request of: NAIMA KISER Procedure: US OB amniotic fluid vol PROCEDURE: US OB amniotic fluid vol, US OB BPP wo non-stress, 10/30/2024 7:00 AM EST CLINICAL INDICATIONS: Encounter for third trimester , hypertension, right upper quadrant abdominal pain for 2 weeks Expected gestational age: 30 weeks 1 day Expected KELLEY: 01/07/2025 COMPARISON: 09/20/2024, 08/21/2024 TECHNIQUE: Limited third trimester obstetric sonogram, grayscale color and spectral assessment. FINDINGS: Single living intrauterine identified, cephalic presentation. body, cardiac activity noted, heart rate 140 bpm. Amniotic fluid index 10.5 cm, 5-95th percentile, maximum vertical pocket 4.9 cm. Anterior placenta, no sign of previa. biometry: Not performed. anatomic assessment: Not performed. BIOPHYSICAL PROFILE ASSESSMENT: movement: 2/2 tone: 2/2 breathin/2 fluid: 2/2 Total biophysical profile score: 8/8 No maternal adnexal pathology demonstrated. US/US OB amniotic fluid vol IMPRESSION: 1. Single living intrauterine , cephalic presentation 2. Anterior placenta, no sign of previa 3. Amniotic fluid index 10.5 cm, maximum vertical pocket 4.9 cm 4. Normal biophysical profile assessment, total score 8/8 Electronically authenticated by: JULY ALAS Date: 10/30/2024 09:11
--- NOTE | 2024-10-30 06:59 | US_ITS ---
[place] [id number] Patient Name: SORAIDA VALENCIA MRN: [id number] date: 2000 Sex: F Assigned Patient Location: [facility] Current Patient Location: [facility] Accession/Order Number: [id number] Exam Date: 10/30/2024 07:00 Report Date: 10/30/2024 09:11 At the request of: NAIMA KISER Procedure: US OB BPP wo non-stress PROCEDURE: US OB amniotic fluid vol, US OB BPP wo non-stress, 10/30/2024 7:00 AM EST CLINICAL INDICATIONS: Encounter for third trimester , hypertension, right upper quadrant abdominal pain for 2 weeks Expected gestational age: 30 weeks 1 day Expected KELLEY: 01/07/2025 COMPARISON: 09/20/2024, 08/21/2024 TECHNIQUE: Limited third trimester obstetric sonogram, grayscale color and spectral assessment. FINDINGS: Single living intrauterine identified, cephalic presentation. body, cardiac activity noted, heart rate 140 bpm. Amniotic fluid index 10.5 cm, 5-95th percentile, maximum vertical pocket 4.9 cm. Anterior placenta, no sign of previa. biometry: Not performed. anatomic assessment: Not performed. BIOPHYSICAL PROFILE ASSESSMENT: movement: 2/2 tone: 2/2 breathin/2 fluid: 2/2 Total biophysical profile score: 8/8 No maternal adnexal pathology demonstrated. US/US OB BPP wo non-stress IMPRESSION: 1. Single living intrauterine , cephalic presentation 2. Anterior placenta, no sign of previa 3. Amniotic fluid index 10.5 cm, maximum vertical pocket 4.9 cm 4. Normal biophysical profile assessment, total score 8/8 Electronically authenticated by: JULY ALAS Date: 10/30/2024 09:11
--- NOTE | 2024-10-30 07:30 | US_ITS ---
[facility] [place] [id number] Patient Name: SORAIDA VALENCIA MRN: [id number] date: 2000 Sex: F Assigned Patient Location: [facility] Current Patient Location: [facility] Accession/Order Number: [id number] Exam Date: 10/30/2024 07:31 Report Date: 10/30/2024 09:23 At the request of: NAIMA KISER Procedure: US renal bladder PROCEDURE: US renal bladder, 10/30/2024 7:31 AM EST CLINICAL INDICATIONS: Right upper quadrant abdominal pain, back pain, 30 week COMPARISON: None TECHNIQUE: Renal and bladder sonogram, grayscale, color evaluation. FINDINGS: Right kidney: 11.7 x 5.7 x 4.4 cm Left kidney: 11.1 x 4.6 x 4.2 cm Prevoid bladder volume: 134 mL Postvoid urinary bladder volume: 1 mL Renal parenchyma is normal in echogenicity and cortical thickness. There is a normal vascular pattern bilaterally. Hydronephrosis is not evident. No obstructive uropathy is seen. No nephrolithiasis or focal pneumonia. Urinary bladder is unremarkable. Ureteral jets intact bilaterally. US/US renal bladder IMPRESSION: 1. No hydronephrosis or obstructive uropathy 2. No nephrolithiasis or focal abnormality 3. Prevoid bladder volume 134 mL, postvoid residual 1 mL. Electronically authenticated by: JULY ALAS Date: 10/30/2024 09:23
--- NOTE | 2024-10-30 09:54 | PM.OBDS ---
DS: Providers Provider Date of admission: 10/30/24 03:42 Primary care physician: KOMAL GONZALES Admitting clinician: Amy Perez Discharging clinician: Amy Perez Anticipated date of discharge: 10/30/24 DS: Diagnosis Discharge Diagnosis (1) Urinary tract infection affecting care of mother in third trimester, antepartum: Assessment and plan: admitted with cva pain. blood pressure was elevated. preeclampsia work up negative. renal ultrasound neg. BPP and JUANITA normal. antibiotic started for UTI...(not pyelo). hypertension resolved with pain management. heart CAT I. no contractions or LOF. (2) Hypertension affecting in third trimester: Assessment and plan: short lived. however, pending the results of the preeclampsia labs anticipating possible early delivery with transfer to [facility], she did receive one dose of betamethasone. did not receive second dose as test was negative and hypertension resolved Plan discharge home on keflex 500 mg po TID for total of seven days OB - DS: Summary Hospital Course Hospital Course: uncomplicated Time spent discussing smoking cessation with patient: 3 to 10 minutes Status at Discharge Cognitive/behavioral status at discharge: wnl Functional status at discharge: independent ambulation Overall status at discharge: patient is back to baseline Time Spent with Patient Time attestation: Total time spent providing and/or coordinating discharge services: Time spent: less than 30 minutes Exam Narrative Exam Narrative: voicing no complaints Constitutional Vital Signs, click to edit/add: Last Vital Signs Temp 97.9 F 10/30/24 07:01 Pulse 60 10/30/24 09:26 BP 130/69 10/30/24 09:26 Documenting provider has reviewed patient's vital signs: yes Common normals: no apparent distress, oriented x3, no limitations, healthy appearing, alert and well nourished [facility] Common normals: normocephalic and head/scalp atraumatic Eye Common normals: PERRL Pupil: accommodation reflex normal Neck & C-Spine Common normals: full ROM and supple Respiratory Common normals: normal respiratory effort Auscultation: clear to auscultation bilaterally Cardio Common normals: regular rate and regular rhythm GI Common normals: Normal to inspection, nondistended, normoactive bowel sounds present, soft to palpation and non-tender Common normals: no CVA tenderness Back & Pelvis Common normals: no thoracic nor lumbar tenderness Extremity Common normals: normal to inspection, full ROM and no calf tenderness Neuro Common normals: CN's II-XII intact bilaterally, moves all extremities, no focal motor deficits and no sensory deficits noted Psych Common normals: mental status grossly normal, thought process normal, cooperative, affect normal and speech normal DS: Data Data Completed and Pending Labs on day of discharge: Labs from last 24 hours 10/30/24 10/30/24 04:55 04:00 WBC 11.8 H RBC 4.03 L Hgb 12.6 Hct 35.6 L MCV 88.3 MCH 31.3 MCHC 35.4 H RDW 12.4 Plt Count 176 MPV 11.6 Neut % (Auto) 72.4 Lymph % (Auto) 16.0 L [place] % (Auto) 7.4 Eos % (Auto) 1.6 Baso % (Auto) 0.5 Neut # (Auto) 8.5 H Lymph # (Auto) 1.9 [place] # (Auto) 0.9 H Eos # (Auto) 0.2 Baso # (Auto) 0.1 Abs Immat Gran (auto) 0.25 H Imm/Tot Granulo (auto) 2.1 H PT 9.5 INR <0.93 APTT 23.9 Fibrinogen 415 H Lactate Dehydrogenase 229 Urine Color Lt. yellow Urine Clarity Clear Urine pH 6.0 Ur Specific [place] >=1.030 A Urine Protein 30 A Urine Glucose (UA) Negative Urine Ketones Negative Urine Occult Blood Negative Urine Nitrite Negative Urine Bilirubin Negative Urine Urobilinogen 0.2 Ur Leukocyte Esterase Trace A Urine RBC 0-2 Urine WBC 5-10 A Ur Squamous Epith Cells Few A Urine Crystals None seen Urine Bacteria Small A Urine Casts None seen Urine Mucus None seen Ur Culture Indicated? Yes Ur Random Creatinine 176.19 U Random Total Protein 56.3 H Protein/Creatinin Ratio 0.32 Discharge Plan Discharge Disposition: (FBC OBS) Home, Self-Care Condition: Good Assessment: no temp, pain gone, BP normal, anxious to go home Care Plan Goals: resolve UTI on antibiotic Plan of Treatment: antibiotic for seven days Activity: resume usual activities as tolerated Diet: regular diet Print Language: [place] Patient Instructions: Urinary Tract Infection in (DC) Follow Up Appointments: follow up for next scheduled OB appointment
== END 2024-10-30 10:08 | disposition home or self-care (01) ==
PROVIDERS: Admitting Provider Obstetrics & Gynecology; PCP Family Medicine; Visit Provider Obstetrics & Gynecology
DX: O23.43 Unspecified infection of urinary tract in pregnancy, third trimester (principal); N39.0 Urinary tract infection, site not specified; O16.3 Unspecified maternal hypertension, third trimester; Z3A.30 30 weeks gestation of pregnancy
CPT/HCPCS: 36415; 59025; 76770; 76815; 76819; 81001; 82570; 83615; 84156; 85025; 85384; 85610; 85730; 87086; 96365; 96372; G0378; G0379; J0290; J0702

== ENCOUNTER 2024-10-31 00:49 | Outpatient (OUT) | payer OTHER, SELFPAY ==
--- OUTSIDE RECORDS SUMMARY | 2024-10-31 00:54 | XMS_ITS | CCD ---
Author Organization [facility] Care Team Providers Care Early Childhood Lead Teacher Name Role Phone CHRISTIAN, DR SAUCEDA Attending Unavailable CHRISTIAN, DR SAUCEDA Consulting Unavailable CHRISTIAN, DR SAUCEDA Admitting Unavailable Cristina Selby Unavailable Gibson Gonzales MD Primary Care Provider [phone] SARAH ZHANG Attending Unavailable SARAH ZHANG Attending [...] oral tablet (1 source) alpha-Adrenergic Agonist, Uncompetitive I-xttugq-G-asparta te Receptor Antagonist, Sigma-1 Agonist Start: 07-01-2023 [...] 91 tablet 3 10/18/2023 06/02/2024 Discontinued Pnv #69-Bidb-Afjsy Acid-Omega3 (1 source) Start: 07-30-2024 Pnv #49-[id number]-Sjmpt Acid-Omega3 Active CAP PO July 30, 2024 [...] UA Negative Negative - 4(70) +++ mg/dL [facility] Blood, UA Negative Negative - 50 Warren/mcL [facility] Clarity, UA Clear [facility] re Color, UA Yellow [facility] Glucose, UA Negative Negative - 1999(110) ++++ mg/dL [facility] Interpretation and review of laboratory results Abnormal [facility] Ketones, UA Negative Negative - 160(16) ++++ mg/dL [facility] Leukocytes, UA Moderate Negative - 500+++ Jamaal/mcL [facility] Nitrite, UA Negative Negative - Positive [facility] pH, UA 7 5 - 9 [facility] e Protein, UA Negative Negative - 1999(20) ++++ mg/dL [facility] Spec Grav, UA 1.015 1 - 1.03 [facility] Urobilinogen, UA 0.2 0.2 - 12 mg/dL [facility] ALL CBC WITH AUTO DIFFon BASOPHILS ABSOLUTE AUTO 0 [facility] Basophils/100 WBC (Bld) 0.4 % 0.2 - 2.0 % [facility] Eosinophils/100 WBC (Bld) 1.6 % 0.9 - 7.0 % [facility] Erythrocyte distribution width (RBC) [Ratio] 12.5 % 11.0 - 15.0 % [facility] Hematocrit (Bld) [Volume fraction] 35.6 % Low 36.0 - 48.0 % [facility] Hemoglobin (Bld) [Mass/Vol] 12.3 g/dL 12.0 - 16.0 g/dL [facility] IMMATURE GRANULOCYTES ABS AUTO 0.11 High [facility] Immature granulocytes/100 WBC (Bld) 1.1 % High 0.0 - 0.5 % [facility] Interpretation and review of laboratory results Abnormal [facility] LYMPHOCYTES ABSOLUTE AUTO 1.5 [facility] Lymphocytes/100 WBC (Bld) 15 % Low 20.5 - 60.0 % [facility] MCH (RBC) [Entitic mass] 31.4 pg 26.7 - 34.0 pg [facility] MCHC (RBC) [Mass/Vol] 34.6 g/dL 29.9 - 35.2 g/dL [facility] MCV (RBC) [Entitic vol] 90.8 fL 81.0 - 99.0 fL [facility] MONOCYTES ABSOLUTE AUTO 0.4 [facility] Monocytes/100 WBC (Bld) 4.6 % 1.7 - 12.0 % [facility] NEUTROPHILS ABSOLUTE AUTO 7.5 High [facility] Neutrophils/100 WBC (Bld) 77.3 % High 43.0 - 75.0 % [facility] Platelet mean volume (Bld) [Entitic vol] 11.6 fL 9.5 - 13.5 fL [facility] TBH EO # 0.2 [facility] PLT 199 [facility] e TB RBC 3.92 Low [facility] Healthcar e TBH WBC 9.7 [facility] Healthcar e [facility] Urinalysis macro (dipstick) panel (U)on 10-02-2024 Bilirubin, UA Negative Negative - 4(70) +++ mg/dL [facility] Blood, UA Negative Negative - 50 Warren/mcL [facility] Clarity, UA Clear [facility] re Color, UA Yellow [facility] Glucose, UA Negative Negative - 1999(110) ++++ mg/dL [facility] Interpretation and review of laboratory results Abnormal [facility] Ketones, UA Negative Negative - 160(16) ++++ mg/dL [facility] Leukocytes, UA Moderate Negative - 500+++ Jamaal/mcL [facility] Nitrite, UA Negative Negative - Positive [facility] pH, UA 7 5 - 9 [facility] e Protein, UA Negative Negative - 1999(20) ++++ mg/dL [facility] Spec Grav, UA 1.02 1 - 1.03 [facility] Urobilinogen, UA 0.2 0.2 - 12 mg/dL [facility] Healthcare [facility] Health[facility] e URETHRITIS/DISCHARGE PLUS VA GINITIS (HTRX)on 08-04-2024 ATOPOBIUM VAGINAE 0 [facility] althcare ATOPOBIUM VAGINAE Not detected [facility] Healthcare BVAB 2,3 (BACTERIAL VAGINOSIS ASSOCIATED BACTERIA 2, 3); MOBILUNCUS SPP 0 [facility] BVAB 2,3 (BACTERIAL VAGINOSIS ASSOCIATED BACTERIA 2, 3); MOBILUNCUS SPP Not detected [facility] AMERICA ALBICANS, PARAPSILOSIS, TROPICALIS 30.391 Abnormal [facility] Healthcare [place] ALBICANS, PARAPSILOSIS, TROPICALIS Detected Abnormal [facility] Healthcare [place] GLABRATA 0 [facility] [place] GLABRATA Not [facility] [place] [facility]I [facility] [place] KRUSEI Not detected [facility] Hea lthcare CHLAMYDIA TRACHOMATIS 0 [facility] Healthcare CHLAMYDIA TRACHOMATIS Not detected N [facility] Healthcare GARDNERELLA VAGINALIS 0 [facility] Healthcare GARDNERELLA VAGINALIS Not detected N [facility] Interpretation and review of laboratory results Abnormal [facility] MEGASPHAERA (TYPES 1, 2) 0 [facility] MEGASPHAERA (TYPES 1, 2) Not detected [facility] MYCOPLASMA GENITALIUM 0 [facility] Healthcare MYCOPLASMA GENITALIUM Not detected N [facility] NEISSERIA GONORRHOEAE 0 [facility] NEISSERIA GONORRHOEAE Not detected N [facility] Healthcare TRICHOMONAS VAGINALIS 0 [facility] S Healthcare TRICHOMONAS VAGINALIS Not detected N [facility] Healthcare [facility] TBH DRUG SCREEN RAPID (URINE )on 08-03-2024 AMPHETAMINE SCREEN URINE Negative NEGATIVE [facility] BARBITURATES SCREEN URINE Negative NEGATIVE [facility] BENZODIAZEPINES SCREEN URINE Negative NEGATIVE [facility] Healthcare BUPRENORPHINE SCREEN URINE Negative NEGATIVE [facility] Healthcare Comment on above: DRUG CLASS [...] 300 ng/mL CANNABINOID SCREEN URINE Negative NEGATIVE [facility] COCAINE SCREEN URINE Negative NEGATIVE [facility] METHADONE SCREEN URINE Negative NEGATIVE NO [facility] METHAMPHETAMINES SCREEN URINE Negative NEGATIVE [facility] OPIATE SCREEN URINE Negative NEGATIVE [facility] OXYCODONE SCREEN URINE Negative NEGATIVE NO [facility] PHENCYCLIDINE SCREEN URINE Negative NEGATIVE [facility] TRICYCLIC ANTIDEPRESSANT URINE Negative NEGATIVE [facility] REFLEX IF POSITIVE [facility] Healthcar e Urinalysis macro (dipstick) panel (U)on 08-02-2024 Bilirubin, UA Negative Negative - (70) +++ mg/dL [facility] Blood, UA Negative Negative - 50 Warren/mcL [facility] Clarity, UA Clear [facility] re Color, UA Yellow [facility] Glucose, UA Negative Negative - 1999(110) ++++ mg/dL [facility] Interpretation and review of laboratory results Abnormal [facility] Ketones, UA Negative Negative - 160(16) ++++ mg/dL [facility] Leukocytes, UA Positive Negative - 500+++ Jamaal/mcL [facility] Comment on above: small Nitrite, UA Negative Negative - Positive [facility] pH, UA 6 5 - 9 [facility] e Protein, UA Negative Negative - 1999(20) ++++ mg/dL [facility] Spec Grav, UA 1.03 1 - 1.03 [facility] Urobilinogen, UA 0.2 0.2 - 12 mg/dL [facility] ALL CBC WITH AUTO DIFFon BASOPHILS ABSOLUTE AUTO 0.1 [facility] Basophils/100 WBC (Bld) 0.7 % 0.2 - 2.0 % [facility] Eosinophils/100 WBC (Bld) 2.1 % 0.9 - 7.0 % [facility] Erythrocyte distribution width (RBC) [Ratio] 12.7 % 11.0 - 15.0 % [facility] Hematocrit (Bld) [Volume fraction] 36.7 % 36.0 - 48.0 % [facility] Hemoglobin (Bld) [Mass/Vol] 12.6 g/dL 12.0 - 16.0 g/dL [facility] IMMATURE GRANULOCYTES ABS AUTO 0.04 High [facility] Immature granulocytes/100 WBC (Bld) 0.4 % 0.0 - 0.5 % [facility] Interpretation and review of laboratory results Abnormal [facility] LYMPHOCYTES ABSOLUTE AUTO 2.0 [facility] Lymphocytes/100 WBC (Bld) 18.5 % Low 20.5 - 60.0 % [facility] MCH (RBC) [Entitic mass] 29.8 pg 26.7 - 34.0 pg [facility] MCHC (RBC) [Mass/Vol] 34.3 g/dL 29.9 - 35.2 g/dL [facility] MCV (RBC) [Entitic vol] 86.8 fL 81.0 - 99.0 fL [facility] MONOCYTES ABSOLUTE AUTO 0.6 [facility] Monocytes/100 WBC (Bld) 5.9 % 1.7 - 12.0 % [facility] NEUTROPHILS ABSOLUTE AUTO 7.8 High [facility] Neutrophils/100 WBC (Bld) 72.4 % 43.0 - 75.0 % [facility] Platelet mean volume (Bld) [Entitic vol] 10.7 fL 9.5 - 13.5 fL [facility] TBH EO # 0.2 [facility] TB PLT 226 [facility] TB RBC 4.23 [facility] TBH WBC 10.7 [facility] Urinalysis macro (dipstick) panel (U)on 07-03-2024 Bilirubin, UA Negative Negative - 4(70) +++ mg/dL [facility] Blood, UA Negative Negative - 50 Warren/mcL [facility] Clarity, UA Clear [facility] re Color, UA Yellow [facility] e Glucose, UA Negative Negative - 1999(110) ++++ mg/dL [facility] Interpretation and review of laboratory results Abnormal [facility] Ketones, UA Negative Negative - 160(16) ++++ mg/dL [facility] Leukocytes, UA Few Negative - 500+++ Jamaal/mcL [facility] Nitrite, UA Negative Negative - Positive [facility] pH, UA 5.5 5 - 9 [facility] Protein, UA Negative Negative - 1999(20) ++++ mg/dL [facility] Spec Grav, UA 1.020 1 - 1.03 [facility] Urobilinogen, UA 1.0 0.2 - 12 mg/dL [facility] ( test) Ql (U)o n 06-02-2024 Interpretation and review of laboratory results Abnormal [facility] Preg Test, Ur Positive [facility] No Panel InformationOrdered By: Connie Marmolejo on 02-28-2024 Quick Strep (POC) [facility] COVID/FLU RT-PCRon 3 SARS-CoV-2 (COVID-19) RNA STEVE+probe Ql (Unsp spec) Negative [employer] Other COVID/FLU RT-PCR Negative [facility] [employer] Other Quick Strepon 07-01-2023 S. pyogenes Org specific cx Ql (Throat) Negative [facility] Other Quick Strep [facility] Other RESPIRATORY PANEL PLUSon Adenovirus Not detected Normal NOT DETECTED [facility] Comment on above: Performed By: #### R SPLUS #### [facility] [address] [place] [address] Dr. Pedro Luis Mckeon Parapertusis Not detected Normal NOT DETECTED [facility] Comment on above: Performed By: #### R SPLUS #### [facility] [address] [place] [address] Dr. Pedro Luis Mckeon Pertussis Not detected Normal NOT DETECTED [facility] Comment on above: Performed By: #### R SPLUS #### [facility] [address] [place] [address] Dr. Pedro Luis Luis Chlamydia Pneumoniae Not detected Normal NOT DETECTED [facility] Comment on above: Performed By: #### R SPLUS #### [facility] [address] [place] [address] Dr. Pedro Luis Luis Coronavirus 229E Not detected Normal NOT DETECTED [facility] Comment on above: Performed By: #### R SPLUS #### [facility] [address] [place] [address] Dr. Pedro Luis Luis Coronavirus HKU1 Not detected Normal NOT DETECTED [facility] Comment on above: Performed By: #### R SPLUS #### [facility] [address] [place] [address] Dr. Pedro Luis Luis Coronavirus NL63 Not detected Normal NOT DETECTED [facility] Comment on above: Performed By: #### R SPLUS #### [facility] [address] [place] [address] Dr. Pedro Luis Luis Coronavirus OC43 Not detected Normal NOT DETECTED [facility] Comment on above: Performed By: #### R SPLUS #### [facility] [address] [place] [address] Dr. Pedro Luis Luis Influenza A H1 2009 Not detected Normal NOT DETECTED [facility] Comment on above: Performed By: #### R SPLUS #### [facility] [address] [place] [address] Dr. Pedro Luis Luis Influenza B Not detected Normal NOT DETECTED [facility] Comment on above: Performed By: #### R SPLUS #### [facility] [address] [place] [address] Dr. Pedro Luis Luis Metapneumovirus Not detected Normal NOT DETECTED [facility] Comment on above: Performed By: #### R SPLUS #### [facility] [address] [place] [address] Dr. Pedro Luis Luis Mycoplas. Pneumoniae Not detected Normal NOT DETECTED [facility] Comment on above: Performed By: #### R SPLUS #### [facility] [address] [place] [address] Dr. Pedro Luis Luis Parainfluenza 1 Not detected Normal NOT DETECTED [facility] Comment on above: Performed By: #### R SPLUS #### [facility] [address] [place] [address] Dr. Pedro Luis Luis Parainfluenza 2 Not detected Normal NOT DETECTED [facility] Comment on above: Performed By: #### R SPLUS #### [facility] [address] [place] [address] Dr. Pedro Luis Luis Parainfluenza 3 Not detected Normal NOT DETECTED [facility] Comment on above: Performed By: #### R SPLUS #### [facility] [address] [place] [address] Dr. Pedro Luis Luis Parainfluenza 4 Not detected Normal NOT DETECTED [facility] Comment on above: Performed By: #### R SPLUS #### [facility] [address] [place] [address] Dr. Pedro Luis Luis Rhino/Enterovirus Not detected Normal NOT DETECTED [facility] Comment on above: Performed By: #### R SPLUS #### [facility] [address] [place] [address] Dr. Pedro Luis Luis RP2 Header 1 RESPIRATORY PANEL: VIRUSES Normal [facility] Comment on above: Performed By: #### R SPLUS #### [facility] [address] [place] [address] Dr. Pedro Luis Luis RP2 Header 2 RESPIRATORY PANEL: BACTERIA Normal [facility] Comment on above: Performed By: #### R SPLUS #### [facility] [address] [place] [address] Dr. Pedro Luis Luis RSV Not detected Normal NOT DETECTED [facility] Comment on above: Performed By: #### R SPLUS #### [facility] [address] [place] [address] Dr. Pedro Luis Luis SARS-CoV-2 (COVID-19) RNA STEVE+probe Ql (Unsp spec) Not detected Normal NOT DETECTED [facility] Comment on above: Performed By: #### R SPLUS #### [facility] [address] [place] [address] Dr. 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 May use rx of [place] for symptomatic tx. Follow up with PCP if not improving over next 7 days or significantly worsening symptoms. Parent verbalized understanding and is agreeable with tx plan. This visit was conducted via two-way, real-time interactive video communications from my office using [employer] due to the restrictions of the COVID-19 pandemic. No physical exam was conducted other than those areas of the body visible to telecommunications with the patient located at [address] [place], [place] [id number], with spouse in attendance. If it is [...] for 5 day(s), 300 mL, Refill(s) 0, [employer] #72, 169, cm, 08/20/21 17:56:00 EST, Height/Length Dosing, 68.4, kg, 08/20/21 17:56:00 EST, Weight Dosing 2. Cough (R05.9: Cough, unspecified) See above treatment plan Ordered: dextromethorphan-pyri ria, 20 mL, Oral, q8hr for 5 day(s), 300 mL, Refill(s) 0, [employer] #72, 169, cm, 08/20/21 17:56:00 EST, Height/Length Dosing, 68.4, kg, 08/20/21 17:56:00 EST, Weight Dosing Follow-up With When Contact Information Aydee Munoz, [facility] Only if needed Additional Instructions: Patient Education Cool Mist Vaporizer Problem List/Past Medical History Ongoing No chronic problems Historical No qualifying data Medications [place] DM 7.5 mg-7.5 mg/5 mL oral liquid, 20 mL, Oral, q8hr Allergies No Known Allergies No Known Medication Allergies Social History Tobacco Never (less than 100 in lifetime) Tobacco Use:. Never Smokeless Tobacco Use:., 08/20/2021 [facility] Comment on above: Result Comment: Elec [...] 06/24/2005 Document Revised: 10/14/2017 Document Reviewed: 12/26/2016 [employer] Patient Education ? 2019 [employer]. [facility] Vital Signs Date Time Vital Sign Value Performing Clinician Facility 10-19-2024 15:36-0500 Body mass index (BMI) [Ratio] 27.87 kg/m2 Mora CHOUDHARY Work Phone: [facility] 10-19-2024 15:36-0500 Body weight 84.37 kg Mora CHOUDHARY Work Phone: [facility] 10-19-2024 15:36-0500 Diastolic blood pressure 70 mm[Hg] Mora CHOUDHARY Work Phone: [facility] 10-19-2024 15:36-0500 Systolic blood pressure 118 mm[Hg] Mora CHOUDHARY Work Phone: [facility] 10-02-2024 16:23-0500 Body mass index (BMI) [Ratio] 27.14 kg/m2 Sarah Leatha DO Work Phone: [facility] 10-02-2024 16:23-0500 Body weight 82.16 kg Sarah Leatha DO Work Phone: [facility] 10-02-2024 16:23-0500 Diastolic blood pressure 64 mm[Hg] Sarah Leatha DO Work Phone: [facility] 10-02-2024 16:23-0500 Systolic blood pressure 110 mm[Hg] Sarah Leatha DO Work Phone: [facility] 08-30-2024 14:58-0500 Body mass index (BMI) [Ratio] 25.74 kg/m2 Mora Vásquez PA Work Phone: [facility] 08-30-2024 14:58-0500 Body weight 77.93 kg Mora Terrance PA Work Phone: [facility] 08-30-2024 14:58-0500 Diastolic blood pressure 68 mm[Hg] Mora Vásquez PA Work Phone: [facility] 08-30-2024 14:58-0500 Systolic blood pressure 122 mm[Hg] Mora Vásquez PA Work Phone: [facility] 08-02-2024 15:36-0400 Body mass index (BMI) [Ratio] 25.38 kg/m2 Sarah Leatha DO Work Phone: [facility] 08-02-2024 15:36-0400 Body weight 76.84 kg Sarah Leatha DO Work Phone: [facility] 08-02-2024 15:36-0400 Diastolic blood pressure 64 mm[Hg] Sarah Leatha DO Work Phone: [facility] 08-02-2024 15:36-0400 Systolic blood pressure 120 mm[Hg] Sarah Leatha DO Work Phone: [facility] 07-30-2024 10:08-0400 Body height 170.18 cm [facility] 07-30-2024 10:08-0400 Body mass index (BMI) [Ratio] 26.2 kg/m2 [facility] 07-30-2024 10:08-0400 Body temperature 98.7 [degF] [facility] 07-30-2024 10:08-0400 Body weight 75.74 kg [facility] 07-30-2024 10:08-0400 Diastolic blood pressure 69 mm[Hg] [facility] 07-30-2024 10:08-0400 Heart rate 95 /min [facility] 07-30-2024 10:08-0400 Respiratory rate 16 /min [facility] 07-30-2024 10:08-0400 SaO2% (BldA) [Mass fraction] 98 % [facility] 07-30-2024 10:08-0400 Systolic blood pressure 109 mm[Hg] [facility] 07-03-2024 10:12-0400 Body mass index (BMI) [Ratio] 24.54 kg/m2 Sarah Leatha DO Work Phone: [facility] 07-03-2024 10:12040 Body weight 74.3 kg Sarah Leatha DO Work Phone: [facility] 07-03-2024 10:12-0400 Diastolic blood pressure 64 mm[Hg] [employer] DO Work Phone: [facility] 07-03-2024 10:12-0400 Systolic blood pressure 116 mm[Hg] [employer] DO Work Phone: [facility] 06-02-2024 10:13-0400 Body mass index (BMI) [Ratio] 24.29 kg/m2 [facility] Nurse [facility] 06-02-2024 10:13-0400 Body weight 73.54 kg [facility] Nurse [facility] 06-02-2024 10:13-0400 Diastolic blood pressure 60 mm[Hg] [facility] Nurse [facility] 06-02-2024 10:13-0400 Systolic blood pressure 120 mm[Hg] [employer] Nurse [facility] 02-28-2024 16:23-0400 Body height 170.18 cm [facility] 02-28-2024 16:23-0400 Body mass index (BMI) [Ratio] 23.8 kg/m2 [facility] 02-28-2024 16:23-0400 Body temperature 98.5 [degF] [facility] 02-28-2024 16:23-0400 Body weight 68.94 kg [facility] 02-28-2024 16:23-0400 Diastolic blood pressure 64 mm[Hg] [facility] 02-28-2024 16:23-0400 Heart rate 82 /min [facility] 02-28-2024 16:23-0400 Respiratory rate 18 /min [facility] 02-28-2024 16:23-0400 SaO2% (BldA) [Mass fraction] 98 % [facility] 02-28-2024 16:23-0400 Systolic blood pressure 115 mm[Hg] [facility] 07-01-2023 09:35-0400 Body height 170.18 cm Cristina Selby Other [employer] Other 07-01-2023 09:35-0400 Body mass index (BMI) [Ratio] 26.47 kg/m2 Cristina Selby Other [employer] Other 07-01-2023 09:35-0400 Body temperature 98 [degF] Cristina Selby Other [employer] Other 07-01-2023 09:35-0400 Body weight 76.66 kg Cristina Selby Other [employer] Other 07-01-2023 09:35-0400 Respiratory rate 18 /min Cristina Selby Other [employer] Other 07-01-2023 09:35-0400 SaO2% (BldA) [Mass fraction] 98 % Cristina Selby Other [employer] Other Encounters Encounter Date Encounter Type Care Provider Facility Start: 10-19-2024 End: 10-19-2024 flow sheet Mora Vásquez PA Work Phone: [facility] Comment on above: 28 weeks gestation [...] flow sheet Sarah Leatha DO Work Phone: [facility] Comment on above: 26 weeks gestation o f ; Second trimester ; Diabetes mellitus screening; size inconsistent with dates Start: 08-30-2024 End: 08-30-2024 flow sheet Mora CHOUDHARY Work Phone: [facility] Comment on above: Second trimester pre gnancy; 21 weeks gestation of ; Encounter for follow-up ultrasound of anatomy Start: 08-30-2024 End: 08-30-2024 ambulatory MORA VÁSQUEZ Not Available Start: 08-30-2024 End: 08-30-2024 Bamboo flowsheet Mora CHOUDHARY Work Phone: [facility] Start: 08-30-2024 End: 08-30-2024 Bamboo flowsheet Mora CHOUDHARY Work Phone: [facility] Start: 08-02-2024 End: 08-02-2024 Patient encounter procedure Sarah Leatha DO Work Phone: [facility] Start: 08-02-2024 End: 08-02-2024 Periodic preventive med est patient 18-39 yrs Sarah Leatha DO Work Phone: [facility] Comment on above: 17 [...] Department Unsolicited Start: 07-30-2024 End: 07-30-2024 ambulatory [facility] Work Phone: Start: 07-30-2024 End: 07-30-2024 Patient encounter procedure [facility] [place] Work Phone: Start: 07-11-2024 [...] Not Available Start: 02-28-2024 End: 02-28-2024 ambulatory [facility] Work Phone: Start: 02-28-2024 End: 02-28-2024 Patient encounter procedure [facility] [place] Work Phone: Start: 07-01-2023 End: 07-01-2023 ambulatory Cristina Selby Other [employer] Other Start: 07-01-2023 Office outpatient ne w [...] Sarah Leatha DO Work Phone: Start: 08-02-2024 [facility] DRUG SCREEN RAPI D (URINE) Sarah Leatha [...] PM EST Routine [facility] [address] [facility] [place] [address] Sarah Zhang DO [address] [place], [place] [address], [place] [id number] [facility] Start: 11-01-2024 End: 11-01-2024 Professional / ancillary services management 11/01/2024 3:00 PM EST Ancillary Procedure [facility] [address] [place] [id number] [facility] Start: 10-19-2024 End: 10-19-2024 Patient encounter procedure 10/19/2024 3:40 PM EST Routine [facility] [address] [facility] [place] [id number] Mora Vásquez PA [address] [place] [address] [facility] Start: 10-02-2024 End: 10-02-2025 CBC panel - Blood by Automated count CBC Lab Routine Diabetes mellitus screening Expected: 10/02/2024 (Approximate), Expires: 10/02/2025 [facility] Work Phone: Comment on above: Expected: 10/02/2024 (Approximate), Expires: 10/02/2025 Start: 10-02-2024 End: 10-02-2025 Measurement of glucose 1 hour after glucose challenge for glucose tolerance test Glucose tolerance, 1 hour Lab Routine Diabetes mellitus screening Expected: 10/02/2024 (Approximate), Expires: 10/02/2025 [facility] Comment on above: Expected: 10/02/2024 (Approximate), Expires: [...] Missed menses Expected: 06/02/2024 (Approximate), Expires: 06/02/2025 [facility] Comment on above: Expected: 06/02/2024 (Approximate), Expires: 06/02/2025 Start: 06-02-2024 End: 06-02-2025 Blood type and Indirect antibody screen panel - Blood Type and screen Lab Routine Missed menses Expected: 06/02/2024 (Approximate), Expires: 06/02/2025 [facility] Work Phone: Comment on above: Expected: 06/02/2024 (Approximate), Expires: 06/02/2025 Start: 06-02-2024 End: 06-02-2025 US Pelvis transvaginal US OB transvaginal Imaging Routine Missed menses Expected: 06/02/2024 (Approximate), Expires: 06/02/2025 [facility] Comment on above: Expected: 06/02/2024 (Approximate), Expires: 06/02/2025 Bacteria identified in Urine by Culture Urine culture Microbiology Routine Missed menses Ordered: 06/02/2024 [facility] Comment on above: Ordered: 06/02/2024 CBC W Auto Different ial panel - Blood CBC and differential Lab Routine Missed menses Ordered: 06/02/2024 [facility] Comment on above: Ordered: 06/02/2024 CHLAMYDIA TRACHOMATI S (GENITO/STI) CHLAMYDIA TRACHOMATIS (GENITO/STI) Lab Routine Exposure to STD Ordered: 08/02/2024 [facility] Comment on above: Ordered: 08/02/2024 Cytology Cervical or vaginal smear or scraping study Pap Smear Pathology and Cytology Routine Well woman exam with routine gynecological exam Ordered: 08/02/2024 [facility] Work Phone: Comment on above: Ordered: 08/02/2024 Hemoglobin A1c/Hemoglobin.total in Blood Hemoglobin A1c Lab Routine Missed menses Ordered: 06/02/2024 [facility] Comment on above: Ordered: 06/02/2024 Hepatitis B virus surface Ag [Presence] in Serum or Plasma by Immunoassay Hepatitis B surface antigen Lab Routine Missed menses Ordered: 06/02/2024 [facility] Comment on above: Ordered: 06/02/2024 Hepatitis C virus Ab [Presence] in Serum or Plasma by Immunoassay Hepatitis C antibody Lab Routine Missed menses Ordered: 06/02/2024 [facility] Comment on above: Ordered: 06/02/2024 HIV-1/HIV-2 antigen/antibody combination immunoassay HIV-1 and HIV-2 antibodies Lab Routine Missed menses Ordered: 06/02/2024 [facility] Comment on above: Ordered: 06/02/2024 Neisseria gonorrhoea e DNA [Presence] in Unspecified specimen by STEVE with probe detection Neisseria gonorrhea DNA probe, direct Lab Routine Exposure to STD Ordered: 08/02/2024 [facility] Comment on above: Ordered: 08/02/2024 Reagin Ab [Presence] in Serum by RPR RPR Lab Routine Missed menses Ordered: 06/02/2024 [facility] Comment on above: Ordered: 06/02/2024 Rubella antibody, IgG Rubella an tibody, IgG Lab Routine Missed menses Ordered: 06/02/2024 [facility] Comment on above: Ordered: 06/02/2024 SURESWAB(R) ADVANCED VAGINITIS PLUS, TMA SURESWAB(R) ADVANCED VAGINITIS PLUS, TMA Pathology and Cytology Routine Vaginal discharge Ordered: 08/02/2024 [facility] Comment on above: Ordered: 08/02/2024 Immunizations Immunization Date Immunization Notes Care Provider Fa cility 07-14-2021 influenza, injectabl e, quadrivalent, preservative free Noms Nurse [facility] 07-14-2021 influenza virus vacc ine, unspecified formulation [facility] 08-12-2020 influenza, injectabl e, quadrivalent, preservative free [facility] 12-04-2019 Influenza, injectabl e, [facility] [place] Canine Kidney, preservative free, quadrivalent [facility] 08-17-2018 seasonal influenza, intradermal, preservative free [facility] Nurse [facility] 08-04-2017 seasonal influenza, intradermal, preservative free [facility] Nurse [facility] 06-29-2017 meningococcal oligos accharide (groups A, C, Y and W-135) diphtheria toxoid conjugate vaccine (MCV4O) [facility] 07-20-2016 influenza, injectabl e, quadrivalent, preservative free [facility] 07-24-2015 influenza, seasonal, injectable, preservative free [facility] 07-23-2015 influenza, injectabl e, quadrivalent, preservative free [facility] 09-08-2012 influenza, seasonal, injectable, preservative free [facility] 05-16-2012 tetanus toxoid, redu eugenio diphtheria toxoid, and acellular pertussis vaccine, adsorbed [facility] Nurse [facility] 02-02-2012 human papilloma viru s vaccine, quadrivalent [facility] Nurse [facility] 10-29-2011 human papilloma viru s vaccine, quadrivalent [facility] Nurse [facility] 07-01-2011 human papilloma viru s vaccine, quadrivalent [facility] Nurse [facility] 08-25-2010 influenza virus vacc ine, whole virus [facility] 06-03-2005 diphtheria, tetanus toxoids and acellular pertussis vaccine, unspecified formulation [facility] Nurse [facility] 06-03-2005 measles, mumps and r ubella virus vaccine [facility] Nurse [facility] 06-03-2005 poliovirus vaccine, inactivated [facility] 12-06-2000 diphtheria, tetanus toxoids and acellular pertussis vaccine, unspecified formulation [facility] Nurse [facility] 12-06-2000 haemophilus influenz ae type b vaccine, conjugate unspecified formulation [facility] Nurse [facility] 12-06-2000 measles, mumps and r ubella virus vaccine [facility] Nurse [facility] 12-06-2000 poliovirus vaccine, inactivated [facility] Nurse [facility] 1999 diphtheria, tetanus toxoids and acellular pertussis vaccine, unspecified formulation [facility] Nurse [facility] 1999 haemophilus influenz ae type b vaccine, conjugate unspecified formulation [facility] Nurse [facility] 1999 hepatitis B vaccine, pediatric or pediatric/adolescent dosage [facility] 1999 poliovirus vaccine, inactivated [facility] Nurse [facility] 1999 diphtheria, tetanus toxoids and acellular pertussis vaccine, unspecified formulation [facility] 1999 haemophilus influenz ae type b vaccine, conjugate unspecified formulation [facility] 1999 hepatitis B vaccine, pediatric or pediatric/adolescent dosage [facility] 1999 poliovirus vaccine, inactivated [facility] 1999 diphtheria, tetanus toxoids and acellular pertussis vaccine, unspecified formulation [facility] Nurse [facility] 1999 haemophilus influenz ae type b vaccine, conjugate unspecified formulation [facility] Nurse [facility] 1999 hepatitis B vaccine, pediatric or pediatric/adolescent dosage [facility] 1999 poliovirus vaccine, inactivated [facility] Payers Date Payer Category Payer [facility] Health Insurance [employer] [id number] 2023 Unknown [id number] 2023 Unknown [id number] 1999 Unknown [id number] 1999 Unknown [id number] [id number] 1999 Unknown [id number] [id number] 1999 Unknown [id number] [id number] 1999 Unknown [id number] 1259 1999 Unknown [id number] 1259 1999 Unknown [id number] [id number] 1959 Unknown [id number] Unknown EE [facility] [id number] Social History Date Type Detail Facility Unknown if ever smoked [facility] Other Start: 08-17-2023 End: 06-02-2024 Sex Assigned At [facility] Other Start: 04-07-2023 End: 02-28-2024 Tobacco smoking status NHIS Never smoked tobacco (finding) [facility] Start: 2000 Sex Assigned At Female F [facility] Start: 04-07-2023 Tobacco use and [...] of: FUNMI Martinez documented in this encounter [facility] 10-02-2024 History of Presen t illness Narrative [...] nursing note reviewed. Exam conducted with a ve teacher present. Vitals: Estimated body mass index is [...] Sarah Zhang DO documented in this encounter [facility] 08-30-2024 History of Presen t illness Narrative [...] nursing note reviewed. Exam conducted with a ve teacher present. Vitals: Estimated body mass index is [...] of: FUNMI Martinez documented in this encounter [facility] 08-02-2024 History of Presen t illness Narrative [...] nursing note reviewed. Exam conducted with a ve teacher present. Vitals: Estimated body mass index is [...] Sarah Zhang DO documented in this encounter [facility] 07-03-2024 History of Presen t illness Narrative [...] nursing note reviewed. Exam conducted with a ve teacher present. Vitals: Estimated body mass index is [...] or undercooked meat, and [facility] Patient has been consulted regarding any further [...] Sarah Zhang DO documented in this encounter [facility] 06-02-2024 History of Presen t illness Narrative [...] or undercooked meat, and stay away [facility]. Patient has also been advised to not [...] Laney Stein LPN documented in this encounter [facility] 07-01-2023 Evaluation note Encounter Date Diagnosis Assessment [...] Suspected COVID-19 virus infection (ICD-10 - Z20.822) [employer] Other [employer]ud[employer] noteNo assessment information available [facility] Work Phone: evaluation note* Diagnosis Onset Date Resolution Status Acute sinusitis with symptoms greater than 10 days acute [facility] Work Phone: Evaluunusi note* Diagnosis 17 weeks gestation of Second trimester state, incidental Screening, , for anatomic survey Encounter for anatomic survey , unspecified gestational age Encounter for supervision of normal first in first trimester Well woman exam with routine gynecological exam Routine gynecological examination Exposure to STD Vaginal discharge Leukorrhea, not specified as infective [facility] Diagnosis Second trimester state, incidental 21 weeks gestation of Encounter for follow-up ultrasound of anatomy [facility] Diagnosis Missed menses documented in this encounter [facility] [employer] [facility]* Diagnosis Second trimester state, incidental documented in this encounter [facility] HealthcareEvaluation note* Diagnosis 26 weeks gestation [...] and content) DATE CREATED AUTHOR 08/22/2021 [place] [facility] DATE CREATED AUTHOR AUTHOR'S ORGANIZ ATION 08/27/2021 [facility] DATE CREATED AUTHOR AUTHOR'S ORGANIZ ATION 10/24/2024 [facility] EPIC REASON FOR VISIT (unrecogniz [...] February 28, 2024 End: February 28, 2024 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 Start Date End Date Gibson Gonzales MD [address] [facility] [address] [place] [address] PCP - [facility] 04/07/23 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 Specialty Start Date End Date Gibson Gonzales MD [address] [facility] [address] [place] [address] PCP - [facility] 04/07/23 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 [employer] [facility]. provides no warranty or guarantee of the accuracy or completeness of information in this document.
[2024-10-31 05:57] VITALS: BP 171/85; PULSE 69
[2024-10-31] MEDS: BETAMETHASONE ACE/BETAMETHASONE SOD PHOS 30 MG/5 ML 12 MG IM (06:04)
[2024-10-31 06:21] VITALS: BP 156/76; PULSE 69; TEMP 36.6
[2024-10-31 07:05] VITALS: BP 128/67; PULSE 72
== END 2024-10-31 07:14 | disposition home or self-care (01) ==
LOC: FBCO 00:51 → FBC 05:39
PROVIDERS: PCP Family Medicine; Visit Provider Obstetrics & Gynecology
DX: O26.899 Other specified pregnancy related conditions, unspecified trimester (principal); R10.9 Unspecified abdominal pain; Z3A.00 Weeks of gestation of pregnancy not specified
CPT/HCPCS: J0702

== ENCOUNTER 2024-11-01 16:06 | Observation (INO) | payer OTHER, SELFPAY ==
--- OUTSIDE RECORDS SUMMARY | 2024-11-01 16:31 | XMS_ITS | CCD ---
Author Organization [facility] Care Team Providers Care Skidder Operator Name Role Phone CHRISTIAN, DR SAUCEDA Attending Unavailable CHRISTIAN, DR SAUCEDA Consulting Unavailable CHRISTIAN, DR SAUCEDA Admitting Unavailable Cristina Selby Unavailable Gibson Gonzales MD Primary Care Provider [phone] SARAH ZHANG Attending Unavailable SARAH ZHANG Attending [...] 12 hours 30 07July 30, 2024 12:00am azithromycin 250 mg oral tablet (6 sources) Macrolide Antimicrobial Start: 10-19-2024 azithromycin (Zithromax Z-Jaydon) 250 MG tablet Indications: Other chronic sinusitis As directed 6 tablet 10/19/2024 Active Start: 09-01-2024 End: 10-02-2024 azithromycin (Zithromax Z-Pa k) 250 MG tablet Indications: Sinusitis, unspecified chronicity, unspecified location As directed 6 tablet 09/01/2024 10/02/2024 Discontinued Start: 07-31-2024 End: 08-02-2024 azithromycin (Zithromax Z-Pa k) 250 MG tablet Indications: Upper respiratory tract infection, unspecified type As directed 6 tablet 07/31/2024 08/02/2024 Discontinued cetirizine hydrochloride 10 mg oral tablet (1 source) Histamine-1 Receptor Antagonist Start: 07-30-2024 take 1 tablet by mouth once daily Cetirizine (Zyrtec) 10 mg tablet Active 10 MG PO Daily July 30, 2024 12:00am dextromethorphan hydrobromide 15 mg / guaiFENesin 400 mg / pseudoephedrine hydrochloride 60 mg oral tablet (1 source) alpha-Adrenergic Agonist, Uncompetitive F-avtnec-F-asparta te Receptor Antagonist, Sigma-1 Agonist Start: 07-01-2023 [...] 91 tablet 3 10/18/2023 06/02/2024 Discontinued Pnv #[id number] Acid-Omega3 (1 source) Start: 07-30-2024 Pnv #32-[id number]-Fwwdf Acid-Omega3 Active CAP PO July 30, 2024 [...] 10:16am Start: 02-28-2024 take 1 tablet by once daily L Norgest/E.Estradiol-E.Estrad (Simpesse ) 0.15 [...] mode of transmission] 08-02-2024 Episodic Menstrual disorders (20 sources) Irregular periods; Translations: [Irregular menstruation, unspecified] Onset: 04-07-2023 04-07-2023 Chronic Other complications of (2 sources) size does not accord with dates; Translations: [Uterine size-date discrepancy, unspecified trimester] 10-02-2024 Episodic Other female genital disorders (19 sources) Abnormal uterine bleeding; Translations: [Abnormal uterine and vaginal bleeding, unspecified] Onset: 04-07-2023 04-07-2023 Chronic Other female genital disorders (2 sources) Vaginal discharge; Translations: [Other specified noninflammatory disorders of vagina] 08-02-2024 Episodic Other and delivery including normal (17 sources) Second trimester ; Translations: [Encounter for supervision of normal , unspecified, second trimester] Onset: 10-19-2024 08-02-2024 Episodic Other screening for suspected conditions (not mental disorders or infectious disease) (6 sources) Patient encounter status; Translations: [Encounter for other specified screening] 08-02-2024 Episodic Other upper respiratory disease (19 sources) Seasonal allergic rhinitis; Translations: [Other seasonal allergic rhinitis] Onset: 04-07-2023 04-07-2023 Chronic Other upper respiratory infections (19 sources) Sinusitis; Translations: [Chronic sinusitis, unspecified] Onset: [...] of ] 10-02-2024 Episodic Residual codes; unclassified (5 sources) Gestation period, 28 weeks; Translations: [28 weeks gestation of ] Onset: 10-19-2024 10-19-2024 Episodic Past or Other Problems Problem Classification Problem Date Documented Da te Episodic/Chronic Unclassified (1 source) Suspected COVID-19 virus infection Z20.822 Results Test Name Value Interpretation Reference Range Facility URINE CULTURE, ROUTINEon Bacteria identified Cx Nom (U) Urine Culture, Routine [facility] Bacteria identified Cx Nom (U) Mixed urogenital lora [facility] Bacteria identified Cx Nom (U) 10,000-25,000 colony forming units per mL [facility] Bacteria identified Cx Nom (U) Performed at: - [facility] Bacteria identified Cx Nom (U) [address], [place] [id number] [facility] Bacteria identified Cx Nom (U) Information And Data Architect Analyst: Alex Escalona PhD, Phone: [phone] [facility] Urinalysis macro (dipstick) panel (U)on 10-19-2024 Bilirubin, UA Negative Negative - 4(70) +++ mg/dL [facility] Blood, UA Negative Negative - 50 Warren/mcL [facility] Clarity, UA Clear [facility] re Color, UA Yellow [facility] Glucose, UA Negative Negative - 1999(110) ++++ mg/dL [facility] Interpretation and review of laboratory results Abnormal [facility] Ketones, UA Negative Negative - 160(16) ++++ mg/dL [facility] Leukocytes, UA Moderate Negative - 500+++ Jamaal/mcL [facility] Nitrite, UA Negative Negative - Positive [facility] pH, UA 7 5 - 9 [facility] Protein, UA Negative Negative - 1999(20) ++++ mg/dL [facility] Spec Grav, UA 1.015 1 - 1.03 [facility] Urobilinogen, UA 0.2 0.2 - 12 mg/dL [facility] e ALL CBC WITH AUTO DIFFon BASOPHILS ABSOLUTE AUTO 0 [facility] Basophils/100 WBC (Bld) 0.4 % 0.2 - 2.0 % [facility] Eosinophils/100 WBC (Bld) 1.6 % 0.9 - 7.0 % [facility] Erythrocyte distribution width (RBC) [Ratio] 12.5 % 11.0 - 15.0 % [facility] Hematocrit (Bld) [Volume fraction] 35.6 % Low 36.0 - 48.0 % [facility] Hemoglobin (Bld) [Mass/Vol] 12.3 g/dL 12.0 - 16.0 g/dL [facility] IMMATURE GRANULOCYTES ABS AUTO 0.11 High [facility] Immature granulocytes/100 WBC (Bld) 1.1 % High 0.0 - 0.5 % [facility] Interpretation and review of laboratory results Abnormal [facility] LYMPHOCYTES ABSOLUTE AUTO 1.5 [facility] Lymphocytes/100 WBC (Bld) 15 % Low 20.5 - 60.0 % [facility] MCH (RBC) [Entitic mass] 31.4 pg 26.7 - 34.0 pg [facility] MCHC (RBC) [Mass/Vol] 34.6 g/dL 29.9 - 35.2 g/dL [facility] MCV (RBC) [Entitic vol] 90.8 fL 81.0 - 99.0 fL [facility] MONOCYTES ABSOLUTE AUTO 0.4 [facility] Monocytes/100 WBC (Bld) 4.6 % 1.7 - 12.0 % [facility] NEUTROPHILS ABSOLUTE AUTO 7.5 High [facility] Neutrophils/100 WBC (Bld) 77.3 % High 43.0 - 75.0 % [facility] Platelet mean volume (Bld) [Entitic vol] 11.6 fL 9.5 - 13.5 fL [facility] TBH EO # 0.2 [facility] TBH PLT 199 [facility] TB RBC 3.92 Low [facility] e TBH WBC 9.7 [facility] Urinalysis macro (dipstick) panel (U)on 10-02-2024 Bilirubin, UA Negative Negative - 4(70) +++ mg/dL [facility] Blood, UA Negative Negative - 50 Warren/mcL [facility] Clarity, UA Clear [facility] re Color, UA Yellow [facility] Health[facility] Glucose, UA Negative Negative - 1999(110) ++++ mg/dL [facility] Interpretation and review of laboratory results Abnormal [facility] Ketones, UA Negative Negative - 160(16) ++++ mg/dL [facility] Leukocytes, UA Moderate Negative - 500+++ Jamaal/mcL [facility] Nitrite, UA Negative Negative - Positive [facility] pH, UA 7 5 - 9 [facility] e Protein, UA Negative Negative - 1999(20) ++++ mg/dL [facility] Spec Grav, UA 1.02 1 - 1.03 [facility] Urobilinogen, UA 0.2 0.2 - 12 mg/dL [facility] URETHRITIS/DISCHARGE PLUS VA GINITIS (HTRX)on 08-04-2024 ATOPOBIUM VAGINAE 0 [facility] ATOPOBIUM VAGINAE Not detected [facility] BVAB 2,3 (BACTERIAL VAGINOSIS ASSOCIATED BACTERIA 2, 3); MOBILUNCUS SPP 0 [facility] BVAB 2,3 (BACTERIAL VAGINOSIS ASSOCIATED BACTERIA 2, 3); MOBILUNCUS SPP Not detected [facility] AMERICA ALBICANS, PARAPSILOSIS, TROPICALIS 30.391 Abnormal [facility] AMERICA ALBICANS, PARAPSILOSIS, TROPICALIS Detected Abnormal [facility] [place] GLABRATA 0 [facility] ltare [place] GLABRATA Not detected [facility] [place] KRUSEI 0 [facility] [place] KRUSEI Not detected [facility] CHLAMYDIA TRACHOMATIS 0 [facility] CHLAMYDIA TRACHOMATIS Not detected [facility] GARDNERELLA VAGINALIS 0 [facility] GARDNERELLA VAGINALIS Not detected [facility] Interpretation and review of laboratory results Abnormal [facility] MEGASPHAERA (TYPES 1, 2) 0 [facility] MEGASPHAERA (TYPES 1, 2) Not detected [facility] MYCOPLASMA GENITALIUM 0 [facility] MYCOPLASMA GENITALIUM Not detected [facility] NEISSERIA GONORRHOEAE 0 [facility] NEISSERIA GONORRHOEAE Not detected [facility] TRICHOMONAS VAGINALIS 0 [facility] TRICHOMONAS VAGINALIS Not detected N [facility] e TB DRUG SCREEN RAPID (URINE )on 08-03-2024 AMPHETAMINE SCREEN URINE Negative NEGATIVE [facility] BARBITURATES SCREEN URINE Negative NEGATIVE [facility] BENZODIAZEPINES SCREEN URINE Negative NEGATIVE [facility] BUPRENORPHINE SCREEN URINE Negative NEGATIVE [facility] Comment on above: DRUG CLASS TEST SYST [...] 300 ng/mL CANNABINOID SCREEN URINE Negative NEGATIVE [facility] COCAINE SCREEN URINE Negative NEGATIVE [facility] METHADONE SCREEN URINE Negative NEGATIVE NO [facility] METHAMPHETAMINES SCREEN URINE Negative NEGATIVE [facility] OPIATE SCREEN URINE Negative NEGATIVE [facility] OXYCODONE SCREEN URINE Negative NEGATIVE NO [facility] PHENCYCLIDINE SCREEN URINE Negative NEGATIVE [facility] TRICYCLIC ANTIDEPRESSANT URINE Negative NEGATIVE [facility] REFLEX IF POSITIVE [facility] e Urinalysis macro (dipstick) panel (U)on 08-02-2024 Bilirubin, UA Negative Negative - 4(70) +++ mg/dL [facility] Blood, UA Negative Negative - 50 Warren/mcL [facility] Clarity, UA Clear [facility] re Color, UA Yellow [facility] Glucose, UA Negative Negative - 1999(110) ++++ mg/dL [facility] Interpretation and review of laboratory results Abnormal [facility] Ketones, UA Negative Negative - 160(16) ++++ mg/dL [facility] Leukocytes, UA Positive Negative - 500+++ Jamaal/mcL [facility] Comment on above: small Nitrite, UA Negative Negative - Positive [facility] pH, UA 6 5 - 9 [facility] e Protein, UA Negative Negative - 1999(20) ++++ mg/dL [facility] Spec Grav, UA 1.03 1 - 1.03 [facility] Urobilinogen, UA 0.2 0.2 - 12 mg/dL [facility] ALL CBC WITH AUTO DIFFon BASOPHILS ABSOLUTE AUTO 0.1 [facility] Basophils/100 WBC (Bld) 0.7 % 0.2 - 2.0 % [facility] Eosinophils/100 WBC (Bld) 2.1 % 0.9 - 7.0 % [facility] Erythrocyte distribution width (RBC) [Ratio] 12.7 % 11.0 - 15.0 % [facility] Hematocrit (Bld) [Volume fraction] 36.7 % 36.0 - 48.0 % [facility] Hemoglobin (Bld) [Mass/Vol] 12.6 g/dL 12.0 - 16.0 g/dL [facility] IMMATURE GRANULOCYTES ABS AUTO 0.04 High [facility] Immature granulocytes/100 WBC (Bld) 0.4 % 0.0 - 0.5 % [facility] Interpretation and review of laboratory results Abnormal [facility] LYMPHOCYTES ABSOLUTE AUTO 2.0 [facility] Lymphocytes/100 WBC (Bld) 18.5 % Low 20.5 - 60.0 % [facility] MCH (RBC) [Entitic mass] 29.8 pg 26.7 - 34.0 pg [facility] MCHC (RBC) [Mass/Vol] 34.3 g/dL 29.9 - 35.2 g/dL [facility] MCV (RBC) [Entitic vol] 86.8 fL 81.0 - 99.0 fL [facility] MONOCYTES ABSOLUTE AUTO 0.6 [facility] Monocytes/100 WBC (Bld) 5.9 % 1.7 - 12.0 % [facility] NEUTROPHILS ABSOLUTE AUTO 7.8 High [facility] Neutrophils/100 WBC (Bld) 72.4 % 43.0 - 75.0 % [facility] Platelet mean volume (Bld) [Entitic vol] 10.7 fL 9.5 - 13.5 fL [facility] TBH EO # 0.2 [facility] e TB PLT 226 [facility] e TB RBC 4.23 [facility] e TBH WBC 10.7 [facility] e [facility] e Urinalysis macro (dipstick) panel (U)on 07-03-2024 Bilirubin, UA Negative Negative - 4(70) +++ mg/dL [facility] Blood, UA Negative Negative - 50 Warren/mcL [facility] Clarity, UA Clear [facility] Color, UA Yellow [facility] Glucose, UA Negative Negative - 1999(110) ++++ mg/dL [facility] Interpretation and review of laboratory results Abnormal [facility] Ketones, UA Negative Negative - 160(16) ++++ mg/dL [facility] Leukocytes, UA Few Negative - 500+++ Jamaal/mcL [facility] Nitrite, UA Negative Negative - Positive [facility] pH, UA 5.5 5 - 9 [facility] Health[facility] e Protein, UA Negative Negative - 1999(20) ++++ mg/dL [facility] Spec Grav, UA 1.020 1 - 1.03 [facility] Urobilinogen, UA 1.0 0.2 - 12 mg/dL [facility] HCG ( test) Ql (U)o n 06-02-2024 Interpretation and review of laboratory results Abnormal [facility] Preg Test, Ur Positive [facility] No Panel InformationOrdered By: Connie Marmolejo on 02-28-2024 Quick Strep (POC) [facility] COVID/FLU RT-PCRon 3 SARS-CoV-2 (COVID-19) RNA STEVE+probe Ql (Unsp spec) Negative [place] [employer] Other COVID/FLU RT-PCR Negative [facility] Phon[employer] - [employer] Other Quick Strepon 07-01-2023 S. pyogenes Org specific cx Ql (Throat) Negative [employer] Other Quick Strep [facility] [employer] Other RESPIRATORY PANEL PLUSon Adenovirus Not detected Normal NOT DETECTED [facility] Comment on above: Performed By: #### R SPLUS #### [facility] [address] [address] [address] Pedro Luis Mckeon Parapertusis Not detected Normal NOT DETECTED [facility] Comment on above: Performed By: #### R SPLUS #### [facility] [address] [address] [address] Pedro Luis Mckeon Pertussis Not detected Normal NOT DETECTED [facility] Comment on above: Performed By: #### R SPLUS #### [facility] [address] [place] [address] Dr. Pedro Luis Luis Chlamydia Pneumoniae Not detected Normal NOT DETECTED [facility] Comment on above: Performed By: #### R SPLUS #### [facility] [address] [address] [address] Pedro Luis Luis Coronavirus 229E Not detected Normal NOT DETECTED [facility] Comment on above: Performed By: #### R SPLUS #### [facility] [address] [place] [address] Dr. Pedro Luis Luis Coronavirus HKU1 Not detected Normal NOT DETECTED [facility] Comment on above: Performed By: #### R SPLUS #### [facility] [address] [place] [address] Dr. Pedro Luis Luis Coronavirus NL63 Not detected Normal NOT DETECTED [facility] Comment on above: Performed By: #### R SPLUS #### [facility] [address] [place] [address] Dr. Pedro Luis Luis Coronavirus OC43 Not detected Normal NOT DETECTED [facility] Comment on above: Performed By: #### R SPLUS #### [facility] [address] [place] [address] Dr. Pedro Luis Luis Influenza A H1 2008 Not detected Normal NOT [facility]ECT[facility] Comment on above: Performed By: #### R SPLUS #### [facility] [address] [place] [address] Dr. Pedro Luis Luis Influenza B Not detected Normal NOT DETECTED [facility] Comment on above: Performed By: #### R SPLUS #### [facility] [address] [place] [address] Dr. Pedro Luis Luis Metapneumovirus Not detected Normal NOT DETECTED [facility] Comment on above: Performed By: #### R SPLUS #### [facility] [address] [place] [address] Dr. Pedro Luis Luis Mycoplas. Pneumoniae Not detected Normal NOT DETECTED [facility] Comment on above: Performed By: #### R SPLUS #### [facility] [address] [place] [address] Dr. Pedro Luis Luis Parainfluenza 1 Not detected Normal NOT DETECTED [facility] Comment on above: Performed By: #### R SPLUS #### [facility] [address] [place] [address] Dr. Pedro Luis Luis Parainfluenza 2 Not detected Normal NOT DETECTED [facility] Comment on above: Performed By: #### R SPLUS #### [facility] [address] [place] [address] Dr. Pedro Luis Luis Parainfluenza 3 Not detected Normal NOT DETECTED [facility] Comment on above: Performed By: #### R SPLUS #### [facility] [address] [place] [address] Dr. Pedro Luis Luis Parainfluenza 4 Not detected Normal NOT DETECTED [facility] Comment on above: Performed By: #### R SPLUS #### [facility] [address] [place] [address] Dr. Pedro Luis Luis Rhino/Enterovirus Not detected Normal NOT DETECTED [facility] Comment on above: Performed By: #### R SPLUS #### [facility] [address] [place] [address] Dr. Pedro Luis Luis RP2 Header 1 RESPIRATORY PANEL: VIRUSES Normal [facility] Comment on above: Performed By: #### R SPLUS #### [facility] [address] [place] [address] Dr. Pedro Luis DILLARD Header 2 RESPIRATORY PANEL: BACTERIA Normal [facility] Comment on above: Performed By: #### R SPLUS #### [facility] [address] [place] [address] Dr. Pedro Luis Luis RSV Not detected Normal NOT DETECTED [facility] Comment on above: Performed By: #### R SPLUS #### [facility] [address] [place] [address] Dr. Pedro Luis Luis SARS-CoV-2 (COVID-19) RNA STEVE+probe Ql (Unsp spec) Not detected Normal NOT DETECTED [facility] Comment on above: Performed By: #### R SPLUS #### [facility] [address] [address] [address] 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 May use rx of Ector for symptomatic tx. Follow up with PCP if not improving over next 7 days or significantly worsening symptoms. Parent verbalized understanding and is agreeable with tx plan. This visit was conducted via two-way, real-time interactive video communications from my office using [employer] due to the restrictions of the COVID-19 pandemic. No physical exam was conducted other than those areas of the body visible to telecommunications with the patient located at [address] [place], [place] [id number], with spouse in attendance. If it is [...] for 5 day(s), 300 mL, Refill(s) 0, Headroom #72, 169, cm, 08/20/21 17:56:00 EST, Height/Length Dosing, 68.4, kg, 08/20/21 17:56:00 EST, Weight Dosing 2. Cough (R05.9: Cough, unspecified) See above treatment plan Ordered: dextromethorphan-pyri ria, 20 mL, Oral, q8hr for 5 day(s), 300 mL, Refill(s) 0, [employer] #72, 169, cm, 08/20/21 17:56:00 EST, Height/Length Dosing, 68.4, kg, 08/20/21 17:56:00 EST, Weight Dosing Follow-up With When Contact Information Aydee Munoz, MARCELL Only if needed Additional Instructions: Patient Education Cool Mist Vaporizer Problem List/Past Medical History Ongoing No chronic problems Historical No qualifying data Medications Ector DM 7.5 mg-7.5 mg/5 mL oral liquid, 20 mL, Oral, q8hr Allergies No Known Allergies No Known Medication Allergies Social History Tobacco Never (less than 100 in lifetime) Tobacco Use:. Never Smokeless Tobacco Use:., 08/20/2021 [facility] Comment on above: Result Comment: Elec [...] 06/24/2005 Document Revised: 10/14/2017 Document Reviewed: 12/26/2016 [employer] Patient Education ? 2019 [employer] [facility] Vital Signs Date Time Vital Sign Value Performing Clinician Facility 10-19-2024 15:36-0500 Body mass index (BMI) [Ratio] 27.87 kg/m2 Mora CHOUDHARY Work Phone: [facility] 10-19-2024 15:36-0500 Body weight 84.37 kg Mora CHOUDHARY Work Phone: [facility] 10-19-2024 15:36-0500 Diastolic blood pressure 70 mm[Hg] Mora Terrance PA Work Phone: [facility] 10-19-2024 15:36-0500 Systolic blood pressure 118 mm[Hg] Mora Vásquez PA Work Phone: [facility] 10-02-2024 16:23-0500 Body mass index (BMI) [Ratio] 27.14 kg/m2 Sarah Leatha DO Work Phone: [facility] 10-02-2024 16:23-0500 Body weight 82.16 kg Sarah Leatha DO Work Phone: [facility] 10-02-2024 16:23-0500 Diastolic blood pressure 64 mm[Hg] Sarah Leatha DO Work Phone: [facility] 10-02-2024 16:23-0500 Systolic blood pressure 110 mm[Hg] Sarah Leatha DO Work Phone: [facility] 08-30-2024 14:58-0500 Body mass index (BMI) [Ratio] 25.74 kg/m2 Mora Vásquez PA Work Phone: [facility] 08-30-2024 14:58-0500 Body weight 77.93 kg Mora Vásquez PA Work Phone: [facility] 08-30-2024 14:58-0500 Diastolic blood pressure 68 mm[Hg] Mora Vásquez PA Work Phone: [facility] 08-30-2024 14:58-0500 Systolic blood pressure 122 mm[Hg] Mora Vásquez PA Work Phone: [facility] 08-02-2024 15:36-0400 Body mass index (BMI) [Ratio] 25.38 kg/m2 Sarah Leatha DO Work Phone: [facility] 08-02-2024 15:36-0400 Body weight 76.84 kg Sarah Leatha DO Work Phone: [facility] 08-02-2024 15:36-0400 Diastolic blood pressure 64 mm[Hg] Sarah Leatha DO Work Phone: [facility] 08-02-2024 15:36-0400 Systolic blood pressure 120 mm[Hg] Sarah Leatha DO Work Phone: [facility] 07-30-2024 10:08-0400 Body height 170.18 cm [facility] 07-30-2024 10:08-0400 Body mass index (BMI) [Ratio] 26.2 kg/m2 [facility] 07-30-2024 10:08-0400 Body temperature 98.7 [degF] [facility] 07-30-2024 10:08-0400 Body weight 75.74 kg [facility] 07-30-2024 10:08-0400 Diastolic blood pressure 69 mm[Hg] [facility] 07-30-2024 10:08-0400 Heart rate 95 /min [facility] 07-30-2024 10:08-0400 Respiratory rate 16 /min [facility] 07-30-2024 10:08-0400 SaO2% (BldA) [Mass fraction] 98 % [facility] 07-30-2024 10:08-0400 Systolic blood pressure 109 mm[Hg] [facility] 07-03-2024 10:12-0400 Body mass index (BMI) [Ratio] 24.54 kg/m2 Sarah Leatha DO Work Phone: [facility] 07-03-2024 10:12-0400 Body weight 74.3 kg Sarah Leatha DO Work Phone: [facility] 07-03-2024 10:12-0400 Diastolic blood pressure 64 mm[Hg] Sarah Leatha DO Work Phone: [facility] 07-03-2024 10:12-0400 Systolic blood pressure 116 mm[Hg] Sarah Leatha DO Work Phone: [facility] 06-02-2024 10:13-0400 Body mass index (BMI) [Ratio] 24.29 kg/m2 [facility] 06-02-2024 [id number] Body weight 73.54 kg [facility] Nurse [facility] 06-02-2024 10:13-0400 Diastolic blood pressure 60 mm[Hg] [facility] 06-02-2024 10:13-0400 Systolic blood pressure 120 mm[Hg] [facility] 02-28-2024 16:23-0400 Body height 170.18 cm [facility] 02-28-2024 16:23-0400 Body mass index (BMI) [Ratio] 23.8 kg/m2 [facility] 02-28-2024 16:23-0400 Body temperature 98.5 [degF] [facility] 02-28-2024 16:23-0400 Body weight 68.94 kg [facility] 02-28-2024 16:23-0400 Diastolic blood pressure 64 mm[Hg] [facility] 02-28-2024 16:23-0400 Heart rate 82 /min [facility] 02-28-2024 16:23-0400 Respiratory rate 18 /min [facility] 02-28-2024 16:23-0400 SaO2% (BldA) [Mass fraction] 98 % [facility] 02-28-2024 16:23-0400 Systolic blood pressure 115 mm[Hg] [facility] 07-01-2023 09:35-0400 Body height 170.18 cm Cristina Selby Other [facility] [employer] Other 07-01-2023 09:35-0400 Body mass index (BMI) [Ratio] 26.47 kg/m2 Cristina Selby Other [employer] [facility] [employer] Other 07-01-2023 09:35-0400 Body temperature 98 [degF] Cristina Selby Other [employer] Other 07-01-2023 09:35-0400 Body weight 76.66 kg Cristina Selby Other [employer] Other 07-01-2023 09:35-0400 Respiratory rate 18 /min Cristina Selby Other [employer] Other 07-01-2023 09:35-0400 SaO2% (BldA) [Mass fraction] 98 % Cristina Selby Other [employer] Other Encounters Encounter Date Encounter Type Care Provider Facility Start: 10-30-2024 End: 11-01-2024 Clinisync Result Encounter Generic External Data Provider [facility] External Department Unsolicited Start: 10-30-2024 End: 11-01-2024 Clinisync Result Encounter Generic External Data Provider [facility] External Department Unsolicited Start: 10-19-2024 End: 10-19-2024 flow sheet Mora CHOUDHARY Work Phone: [facility] Comment on above: 28 weeks gestation [...] Phone: [facility] Comment on above: 26 weeks gestation o f ; Second trimester ; Diabetes mellitus screening; size inconsistent with dates Start: 08-30-2024 End: 08-30-2024 flow sheet Mora CHOUDHARY Work Phone: [facility] Comment on above: Second trimester pre gnancy; 21 weeks gestation of ; Encounter for follow-up ultrasound of anatomy Start: 08-30-2024 End: 08-30-2024 ambulatory MORA VÁSQUEZ Not Available Start: 08-30-2024 End: 08-30-2024 Bamboo flowsheet Mora CHOUDHARY Work Phone: [facility] Start: 08-30-2024 End: 08-30-2024 Bamboo flowsheet Mora Vásquez PA Work Phone: [facility] Start: 08-02-2024 End: 08-02-2024 Patient encounter procedure Sarah Leatha DO Work Phone: [facility] Start: 08-02-2024 End: 08-02-2024 Periodic preventive med est patient 18-39 yrs Sarah Leatha DO Work Phone: [facility] Comment on above: 17 weeks [...] Department Unsolicited Start: 07-30-2024 End: 07-30-2024 ambulatory [facility] Work Phone: Start: 07-30-2024 End: 07-30-2024 Patient encounter procedure [facility] [place] Work Phone: [...] Start: 02-28-2024 End: 02-28-2024 ambulatory [facility] Work Phone: Start: 02-28-2024 End: 02-28-2024 Patient encounter procedure [facility] [place] Work Phone: Start: 07-01-2023 End: 07-01-2023 ambulatory Cristina Selby Other [employer] Other Start: 07-01-2023 Office outpatient ne w 20 minutes Cristina Selby [facility] [place] Start: 08-21-2021 End: 08-21-[address] GIBSON GONZALES Facility: Procedures Date Procedure Procedure Detail Performing Clinician Start: 10-30-2024 Bacteria identified in Urine by Culture Generic External Data Provider Start: 10-19-2024 Urnls dip stick/tabl et rgnt [...] Sarah Leatha DO Work Phone: Start: 08-02-2024 [facility] DRUG SCREEN RAPI D (URINE) Sarah Leatha [...] PM EST Routine [facility] [address] [place] [id number] Sarah Zhang, DO [facility] [place] [address] [facility] Start: 11-01-2024 End: 11-01-2024 Professional / ancillary services management 11/01/2024 3:00 PM EST Ancillary Procedure [facility] [address] [place] [id number] [facility] Start: 10-19-2024 End: 10-19-2024 Patient encounter procedure 10/19/2024 3:40 PM EST Routine [facility] [address] [place] [id number] Mora Vásquez PA [address] [place] [address] [facility] Start: 10-02-2024 End: 10-02-2025 CBC panel - Blood by Automated count CBC Lab Routine Diabetes mellitus screening Expected: 10/02/2024 (Approximate), Expires: 10/02/2025 [facility] Work Phone: Comment on above: Expected: 10/02/2024 (Approximate), Expires: 10/02/2025 Start: 10-02-2024 End: 10-02-2025 Measurement of glucose 1 hour after glucose challenge for glucose tolerance test Glucose tolerance, 1 hour Lab Routine Diabetes mellitus screening Expected: 10/02/2024 (Approximate), Expires: 10/02/2025 [facility] Comment on above: Expected: 10/02/2024 (Approximate), Expires: 10/02/2025 Start: 10-02-2024 End: 10-02-2025 US for US OB SCAN FOR GROWTH Imaging Routine size inconsistent with dates Expected: 10/02/2024 (Approximate), Expires: 10/02/2025 [facility] Comment on above: Expected: 10/02/2024 (Approximate), Expires: 10/02/2025 Start: 08-30-2024 End: 08-30-2024 Patient encounter procedure [facility] Comment on above: Arrived Start: 08-30-2024 End: 08-30-2025 US for US OB INCOMPLETE ANATOMY Imaging Routine Encounter for follow-up ultrasound of anatomy Expected: 08/30/2024 (Approximate), Expires: 08/30/2025 [facility] Work Phone: Comment on above: [...] first trimester Expected: 08/02/2024 (Approximate), Expires: 08/02/2025 [facility] Comment on above: Expected: 08/02/2024 (Approximate), Expires: 08/02/2025 Start: 08-02-2024 End: 08-02-2025 US for US OB ANATOMY SINGLE W US OB CERVICAL LENGTH Imaging Routine Screening, , for anatomic survey Expected: 08/02/2024 (Approximate), Expires: 08/02/2025 [facility] Comment on above: Expected: 08/02/2024 (Approximate), Expires: 08/02/2025 Start: 07-03-2024 End: 07-03-2024 Patient encounter procedure [facility] Comment on above: Arrived Start: 06-11-2024 Influenza vaccination Influenza Vacc ine (#1) [facility] Start: 06-02-2024 End: 06-02-2025 ABO/Rh ABO/Rh Lab Routine Missed menses Expected: 06/02/2024 (Approximate), Expires: 06/02/2025 [facility] Comment on above: Expected: 06/02/2024 (Approximate), Expires: 06/02/2025 Start: 06-02-2024 End: 06-02-2025 Blood type and Indirect antibody screen panel - Blood Type and screen Lab Routine Missed menses Expected: 06/02/2024 (Approximate), Expires: 06/02/2025 [facility] Work Phone: Comment on above: Expected: 06/02/2024 (Approximate), Expires: 06/02/2025 Start: 06-02-2024 End: 06-02-2025 US Pelvis transvaginal US OB transvaginal Imaging Routine Missed menses Expected: 06/02/2024 (Approximate), Expires: 06/02/2025 [facility] Comment on above: Expected: 06/02/2024 (Approximate), Expires: 06/02/2025 Bacteria identified in Urine by Culture Urine culture Microbiology Routine Missed menses Ordered: 06/02/2024 [facility] Comment on above: Ordered: 06/02/2024 CBC W Auto Different ial panel - Blood CBC and differential Lab Routine Missed menses Ordered: 06/02/2024 [facility] Comment on above: Ordered: 06/02/2024 CHLAMYDIA TRACHOMATI S (GENITO/STI) CHLAMYDIA TRACHOMATIS (GENITO/STI) Lab Routine Exposure to STD Ordered: 08/02/2024 [facility] Comment on above: Ordered: 08/02/2024 Cytology Cervical or vaginal smear or scraping study Pap Smear Pathology and Cytology Routine Well woman exam with routine gynecological exam Ordered: 08/02/2024 [facility] Work Phone: Comment on above: Ordered: 08/02/2024 Hemoglobin A1c/Hemoglobin.total in Blood Hemoglobin A1c Lab Routine Missed menses Ordered: 06/02/2024 [facility] Comment on above: Ordered: 06/02/2024 Hepatitis B virus surface Ag [Presence] in Serum or Plasma by Immunoassay Hepatitis B surface antigen Lab Routine Missed menses Ordered: 06/02/2024 [facility] Comment on above: Ordered: 06/02/2024 Hepatitis C virus Ab [Presence] in Serum or Plasma by Immunoassay Hepatitis C antibody Lab Routine Missed menses Ordered: 06/02/2024 [facility] Comment on above: Ordered: 06/02/2024 HIV-1/HIV-2 antigen/antibody combination immunoassay HIV-1 and HIV-2 antibodies Lab Routine Missed menses Ordered: 06/02/2024 [facility] Comment on above: Ordered: 06/02/2024 Neisseria gonorrhoea e DNA [Presence] in Unspecified specimen by STEVE with probe detection Neisseria gonorrhea DNA probe, direct Lab Routine Exposure to STD Ordered: 08/02/2024 [facility] Comment on above: Ordered: 08/02/2024 Reagin Ab [Presence] in Serum by RPR RPR Lab Routine Missed menses Ordered: 06/02/2024 [facility] Comment on above: Ordered: 06/02/2024 Rubella antibody, IgG Rubella an tibody, IgG Lab Routine Missed menses Ordered: 06/02/2024 [facility] Comment on above: Ordered: 06/02/2024 SURESWAB(R) ADVANCED VAGINITIS PLUS, TMA SURESWAB(R) ADVANCED VAGINITIS PLUS, TMA Pathology and Cytology Routine Vaginal discharge Ordered: 08/02/2024 [facility] Comment on above: Ordered: 08/02/2024 Immunizations Immunization Date Immunization Notes Care Provider Fa cility 07-14-2021 influenza, injectabl e, quadrivalent, preservative free [facility] Nurse [facility] 07-14-2021 influenza virus vacc ine, unspecified formulation [facility] Nurse [facility] 08-12-2020 influenza, injectabl e, quadrivalent, preservative free [facility] Nurse [facility] 12-04-2019 Influenza, injectabl e, Madin [place] Canine Kidney, preservative free, quadrivalent [facility] Nurse [facility] 08-17-2018 seasonal influenza, intradermal, preservative free [facility] 08-04-2017 seasonal influenza, intradermal, preservative free [facility] Nurse [facility] 04-08-2017 meningococcal oligos accharide (groups A, C, Y and W-135) diphtheria toxoid conjugate vaccine (MCV4O) [facility] Nurse [facility] 07-20-2016 influenza, injectabl e, quadrivalent, preservative free [facility] Nurse [facility] 07-24-2015 influenza, seasonal, injectable, preservative free [facility] Nurse [facility] 07-23-2015 influenza, injectabl e, quadrivalent, preservative free [facility] Nurse [facility] 09-08-2012 influenza, seasonal, injectable, preservative free [facility] Nurse [facility] 05-16-2012 tetanus toxoid, redu eugenio diphtheria toxoid, and acellular pertussis vaccine, adsorbed [facility] Nurse [facility] 02-02-2012 human papilloma viru s vaccine, quadrivalent [facility] Nurse [facility] 10-29-2011 human papilloma viru s vaccine, quadrivalent [facility] Nurse [facility] 07-01-2011 human papilloma viru s vaccine, quadrivalent [facility] 08-25-2010 influenza virus vacc ine, whole virus [facility] 06-03-2005 diphtheria, tetanus toxoids and acellular pertussis vaccine, unspecified formulation [facility] Nurse [facility] 06-03-2005 measles, mumps and r ubella virus vaccine [facility] Nurse [facility] 06-03-2005 poliovirus vaccine, inactivated [facility] 12-06-2000 diphtheria, tetanus toxoids and acellular pertussis vaccine, unspecified formulation [facility] Nurse [facility] 12-06-2000 haemophilus influenz ae type b vaccine, conjugate unspecified formulation [facility] Nurse [facility] 12-06-2000 measles, mumps and r ubella virus vaccine [facility] Nurse [facility] 12-06-2000 poliovirus vaccine, inactivated [facility] Nurse [facility] 1999 diphtheria, tetanus toxoids and acellular pertussis vaccine, unspecified formulation [facility] Nurse [facility] 1999 haemophilus influenz ae type b vaccine, conjugate unspecified formulation [facility] Nurse [facility] 1999 hepatitis B vaccine, pediatric or pediatric/adolescent dosage [facility] 1999 poliovirus vaccine, inactivated [facility] Nurse [facility] 1999 diphtheria, tetanus toxoids and acellular pertussis vaccine, unspecified formulation [facility] Nurse [facility] 1999 haemophilus influenz ae type b vaccine, conjugate unspecified formulation [facility] Nurse [facility] 1999 hepatitis B vaccine, pediatric or pediatric/adolescent dosage [facility] 1999 poliovirus vaccine, inactivated [facility] Nurse [facility] 1999 diphtheria, tetanus toxoids and acellular pertussis vaccine, unspecified formulation [facility] Nurse [facility] 1999 haemophilus influenz ae type b vaccine, conjugate unspecified formulation [facility] Nurse [facility] 1999 hepatitis B vaccine, pediatric or pediatric/adolescent dosage [facility] 1999 poliovirus vaccine, inactivated [facility] Nurse [facility] Payers Date Payer Category Payer Private Health Insurance [employer] [id number] 2023 Unknown [id number] 2023 Unknown [id number] 1999 Unknown [id number] 1999 Unknown [id number] 1999 Unknown [id number] [id number] 1999 Unknown [id number] 1999 Unknown [id number] 1999 Unknown [id number] [id number] 1999 Unknown [id number] [id number] 1959 Unknown [id number] [facility] [id number] Social History Date Type Detail Facility Unknown if ever smoked [employer] Other Start: 08-17-2023 End: 06-02-2024 Sex Assigned At [facility] [employer] Other Start: 04-07-2023 End: 02-28-2024 Tobacco smoking status FLIS Never smoked tobacco (finding) [facility] Start: 2000 Sex Assigned At Female F [facility] Start: 04-07-2023 Tobacco use and exposure Smokeless tobacco non-user [facility] Start: 07-03-2024 End: 10-02-2024 Alcoholic beverage intake Ex-drinker (finding) [facility] Start: 08-17-2023 End: 06-02-2024 History of Social function [facility] Start: 05-14-2023 Alcohol Comment Caffeine intak e: 1-2 cups per day [facility] Start: 04-16-2024 [facility] Start: 2000 Sex assigned at Not on file N [facility] Clinical Notes 07-01-2023 to 10-19-2024 FUNMI Martinez - 10/19/2024 3:40 PM Lexi Brewer, DEMOLITIONIST - 10/02/2024 3:50 PM FUNMI Mckeon - 08/30/2024 2:50 PM Nataly Neil, DEMOLITIONIST - 08/02/2024 3:20 PM EDT Note Date [...] of: FUNMI Martinez documented in this encounter [facility] 10-02-2024 History of Presen t illness Narrative [...] nursing note reviewed. Exam conducted with a roofing apprentice present. Vitals: Estimated body mass index is [...] Sarah Zhang DO documented in this encounter [facility] 08-30-2024 History of Presen t illness [...] nursing note reviewed. Exam conducted with a roofing apprentice present. Vitals: Estimated body mass index is [...] of: FUNMI Martinez documented in this encounter [facility] 08-02-2024 History of Presen t illness [...] nursing note reviewed. Exam conducted with a roofing apprentice present. Vitals: Estimated body mass index is [...] Sarah Zhang DO documented in this encounter [facility] 07-03-2024 History of Presen t illness [...] nursing note reviewed. Exam conducted with a roofing apprentice present. Vitals: Estimated body mass index is [...] or undercooked meat, and stay away from [facility]. Patient has been consulted regarding any [...] Sarah Zhang DO documented in this encounter [facility] 06-02-2024 History of Presen t illness [...] History: Diagnosis Date Allergic Asthma, exercise induced (CMS/[facility]) H/O CT scan 08/12/2020 Family History Problem [...] calculated from the following: Height as of 10/3/23: 5' 8.5 . Weight as of this [...] or undercooked meat, and stay away from [facility]. Patient has also been advised to [...] Laney Stein LPN documented in this encounter [facility] 07-01-2023 Evaluation note Encounter Date Diagnosis [...] Suspected COVID-19 virus infection (ICD-10 - Z20.822) [employer] Other Evaluation noteNo assessment information available [facility] Work Phone: Evaluation note* Diagnosis Onset Date Resolution Status Acute sinusitis with symptoms greater than 10 days acute [facility] Work Phone: Evaluation note* Diagnosis 17 weeks gestation of Second trimester state, incidental Screening, , for anatomic survey Encounter for anatomic survey , unspecified gestational age Encounter for supervision of normal first in first trimester Well woman exam with routine gynecological exam Routine gynecological examination Exposure to STD Vaginal discharge Leukorrhea, not specified as infective documented [facility] encounter [facility] Diagnosis Second trimester state, incidental 21 weeks gestation of Encounter for follow-up ultrasound of anatomy documented in this encounter [facility] Diagnosis Missed menses documented in this encounter [facility] Diagnosis Second trimester state, incidental documented [...] section and content) DATE CREATED AUTHOR 08/22/2021 [facility] DATE CREATED AUTHOR AUTHOR'S ORGANIZ ATION 08/27/2021 [facility] DATE CREATED AUTHOR AUTHOR'S ORGANIZ ATION 10/24/2024 [facility] Special[facility] EPIC REASON FOR VISIT [...] February 28, 2024 End: February 28, 2024 Skidder Operator Relationship Specialty Start Date End Date Gibson Gonzales MD [address] [facility] [address] [place] [address] PCP - General Family Medicine 04/07/23 Team Status: Inactive Member Role Status Dates Gibson Gonzales MD Primary Care Provider Active S tart: July 30, 2024 End: July 30, 2024 Cristina Selby APRN Attending Provider Active Start: July 30, 2024 End: July 30, 2024 Skidder Operator Relationship Specialty Start Date End Date Gibson Gonzales MD [address] [facility] [address] [place] [address] PCP - General Family Medicine 04/07/23 Skidder Operator Relationship Specialty Start Date End Date Gibson Gonzales MD [address] [facility] [address] [place] [address] PCP - General Family Medicine 04/07/23 Skidder Operator Relationship Specialty Start Date End Date Gibson Gonzales MD [address] [facility] [address] [place] [address] PCP - General Family Medicine 04/07/23 Skidder Operator Relationship Specialty Start Date End Date Gibson Gonzales MD [address] [facility] [address] [place] [address] PCP - General Family Medicine 04/07/23 Skidder Operator Relationship Specialty Start Date End Date Gibson Gonzales MD [address] [facility] [address] [place] [address] PCP - General Family Medicine 04/07/23 Skidder Operator Relationship Specialty Start Date End Date Gibson Gonzales MD [address] [facility] [address] [place] [address] PCP - General Family Medicine 04/07/23 Skidder Operator Relationship Specialty Start Date End Date Gibson Gonzales MD [address] [facility] [address] [place] [address] PCP - General Family Medicine 04/07/23 Goals [...] BE BASED ON THE PRIMARY CLINICAL RECORDS. [employer] [facility]. provides no warranty or guarantee of the accuracy or completeness of information in this document.
--- NOTE | 2024-11-01 16:35 | US_ITS ---
The [address] [address] Patient Name: SORAIDA VALENCIA MRN: [id number] date: 2000 Sex: F Assigned Patient Location: [facility] Current Patient Location: [facility] Accession/Order Number: [id number] Exam Date: 11/01/2024 17:15 Report Date: 11/01/2024 19:18 At the request of: SARAH PEREIRA Procedure: US renal BI EXAMINATION: US renal BI HISTORY: abdominal pain COMPARISON: Ultrasound renal 10/30/2024 TECHNIQUE: Ultrasound examination was performed of the kidneys and urinary bladder. FINDINGS: RIGHT KIDNEY: No evidence of pelvocaliectasis, mass, or calculi. Normal parenchymal echogenicity. Color Doppler demonstrates blood flow within the kidney. Kidney: 12.4 x 5.8 x 5.4 cm LEFT KIDNEY: No evidence of pelvocaliectasis, mass, or calculi. Normal parenchymal echogenicity. Color Doppler demonstrates blood flow within the kidney. Kidney: 11.0 x 4.5 x 4.4 cm BLADDER: No visible wall thickening, mass, or calculi. US/US renal BI IMPRESSION: 1. Normal ultrasound appearance of the kidneys and urinary bladder. No suspicious findings to account for patient's symptoms. Electronically authenticated by: TAN CANTU Date: 11/01/2024 19:18
--- NOTE | 2024-11-01 16:35 | US_ITS ---
[place] [id number] Patient Name: SORAIDA VALENCIA MRN: [id number] date: 2000 Sex: F Assigned Patient Location: [facility] Current Patient Location: [facility] Accession/Order Number: [id number] Exam Date: 11/01/2024 17:15 Report Date: 11/01/2024 19:15 At the request of: SARAH PEREIRA Procedure: US OB cervical length EXAMINATION: US OB cervical length, US OB placenta HISTORY: abdominal pain COMPARISON: Ultrasound OB biophysical 10/30/2024 FINDINGS: PLACENTA: Anterior, grade 2. No subchorionic hematoma or abruption. CERVIX LENGTH: 2.3 cm; closed. HEART RATE: 120 bpm OTHER: Cephalic presentation. Amniotic fluid volume is subjectively normal. GA: 30 weeks 3 days KELLEY: 01/07/2025 US/US OB cervical length IMPRESSION: 1. Single live intrauterine . 2. Early aging changes of the placenta; grade 2. No abruption or subchorionic hematoma. 3. Closed, but short cervix, 2.3 cm in length. Electronically authenticated by: TAN CANTU Date: 11/01/2024 19:15
--- NOTE | 2024-11-01 16:35 | US_ITS ---
[address] [address] Patient Name: SORAIDA VALENCIA MRN: [id number] date: 2000 Sex: F Assigned Patient Location: [facility] Current Patient Location: [facility] Accession/Order Number: [id number] Exam Date: 11/01/2024 17:15 Report Date: 11/01/2024 19:15 At the request of: SARAH PEREIRA Procedure: US OB placenta EXAMINATION: US OB cervical length, US OB placenta HISTORY: abdominal pain COMPARISON: Ultrasound OB biophysical 10/30/2024 FINDINGS: PLACENTA: Anterior, grade 2. No subchorionic hematoma or abruption. CERVIX LENGTH: 2.3 cm; closed. HEART RATE: 120 bpm OTHER: Cephalic presentation. Amniotic fluid volume is subjectively normal. GA: 30 weeks 3 days KELLEY: 01/07/2025 US/US OB placenta IMPRESSION: 1. Single live intrauterine . 2. Early aging changes of the placenta; grade 2. No abruption or subchorionic hematoma. 3. Closed, but short cervix, 2.3 cm in length. Electronically authenticated by: TAN CANTU Date: 11/01/2024 19:15
[2024-11-01 16:44] VITALS: BP 145/83; PULSE 68
[2024-11-01 16:45] LABS: Hematocrit 31.8 % (36.0-48.0); Hemoglobin 11.2 g/dL (12.0-16.0); Mean Corpuscular HGB Conc 35.2 g/dL (29.9-35.2); Mean Corpuscular Hemoglobin 31.5 pg (26.7-34.0); Mean Corpuscular Volume 89.3 fL (81.0-99.0); Mean Platelet Volume 11.8 fL (9.5-13.5); Platelet Count 169 10^3/uL (150-450); Red Blood Count 3.56 10^6/uL (4.20-5.40); Red Cell Distribution Width 12.8 % (11.0-15.0); White Blood Count 14.3 10^3/uL (4.0-11.0)
[2024-11-01 16:57] LABS: Alanine Aminotransferase 64 U/L (14-59); Aspartate Amino Transferase 55 U/L (15-37); Estimated GFR (African America >60 (>=60 mL/min/1.73m^2); Estimated GFR (Non-African Ame >60 (>=60 mL/min/1.73m^2); Uric Acid 5.8 mg/dL (2.6-6.0)
--- NOTE | 2024-11-01 17:03 | US_ITS ---
[facility] [place] [id number] Patient Name: SORAIDA VALENCIA MRN: [id number] date: 2000 Sex: F Assigned Patient Location: [facility] Current Patient Location: [facility] Accession/Order Number: [id number] Exam Date: 11/01/2024 17:15 Report Date: 11/01/2024 19:12 At the request of: SARAH PEREIRA Procedure: US right upper quadrant EXAMINATION: US right upper quadrant HISTORY: Right upper quadrant pain COMPARISON: No relevant comparison available. TECHNIQUE: Transabdominal evaluation of the right upper quadrant. FINDINGS: LIVER: Normal size and echotexture. Color Doppler demonstrates patent hepatic veins. PORTAL VEIN: Duplex Doppler demonstrates normal hepatopetal flow pattern with flow velocity averaging 27 cm/s. GALLBLADDER: No visible gallstones, wall thickening, or pericholecystic free fluid. Negative sonographic Johnson's sign. BILIARY: No abnormal dilation or stones. Common bile duct diameter is within normal limits. PANCREAS: Limited evaluation. No visible mass, abnormal atrophy, or duct dilation. KIDNEY: No hydronephrosis. No visible mass or stones. Size: 6 x 5.0 x 6.2 cm US/US right upper quadrant IMPRESSION: 1. No acute or suspicious findings within the right upper quadrant. Electronically authenticated by: TAN CANTU Date: 11/01/2024 19:12
[2024-11-01 17:08] LABS: Band Neutrophils Absolute 0.1 10^3/uL (0.0-0.3); Monocytes Absolute Manual 0.71 10^3/uL (0.30-0.80); Segmented Neut Absolute Manual 11.44 10^3/uL (1.4-6.5)
--- NOTE | 2024-11-01 17:17 | PC.NURSE ---
1550- phones into [facility] at this time. Orders received for cervical exam, IV start, IV 1000bolus then maintenance at 150ml/hr, labs: CBC, BUN, creatinine, and liver enzymes; US placenta, cerivcal length, and kindey US. Orders confirmed and read back. 1600- Pt arrives to [facility] from office. Pt crying and tearful in pain. Pt pain 07/20. Pt states she has right upper quadrant pain that started 10/31/2023 at 11am. Pt states the pain radiates from her right upper quadrant and up her back bilaterally. pt denies any recent changes in her health; pt states she is currently being treated for UTI. Pt unable to explain what medication she is currently taking; pt states she is supposed to take medication TID for 7 days. RN palpates upper quadrant; pt states she has rebound tenderness with palpation. Abdomen soft to palpation. Pt denies vomiting but nausea present. Pt states she has had loose stools. Pt denies urinary s/s. Pt states she has gallbladder and hasn't been eating greasy foods and hasn't eaten anything today. Pt denies vaginal bleeding and cxt's. Pt reports movement. Pt denies pre-e s/s. Pt changed into gown and cervical exam performed with consent. Pt cervix closed thick. Pt placed on FHR/UC monitors. Audible and palpated movement noted. 1615-IV attempt per Alexys AVILA unsuccessful. 1620- IV attempt per Willie Heck RN unsuccessful. 1625-IV attempt per Breana AVILA unsuccessful. 1630-IV attempt per Alexys AVILA unsuccessful. 1635- IV placed per Reddy Burris RN. 20G right forearm. IV labs with start. 1637-IV Bolus 1000ml/hr initiated per Reddy Burris RN per provider order. 1648-RN calls at this time; unable to reach at this time. 1650-RN calls at this time; unable to reach at this time. 165-RN calls at this time; unable to reach at this time. 1702- returns call. RN reports pt pain and nausea; overall assessment reported. Orders recieved for 10mg IV Nubain, 2g IVPB Ancef once then 1g Ancef IVPB q8H, and US gallbladder. RN confirms and reads back. coming in.
[2024-11-01] MEDS: NALBUPHINE HCL 10 MG/ML AMPULE IV (17:21)
[2024-11-01] MEDS: CEFAZOLIN SODIUM/DEXTROSE,ISO 2 GM/50 ML PIGGYBACK IV (17:21)
[2024-11-01] MEDS: 0.9 % SODIUM CHLORIDE 1,000 ML 150 ML IV ×2 (17:26→18:49)
[2024-11-01] MEDS: ONDANSETRON PF 4 MG/2 ML VIAL IV (17:27)
[2024-11-01 17:34] LABS: Amylase 29 U/L (25-115)
--- NOTE | 2024-11-01 19:00 | PC.NURSE ---
1645- Report given to Claudia AVILA; Care relinquished.
[2024-11-01 19:27] VITALS: BP 137/88; PULSE 75
[2024-11-01] MEDS: OXYCODONE HCL/ACETAMINOPHEN 5MG/325MG 2 TAB PO (19:27)
[2024-11-01 19:33] VITALS: BP 137/88; PULSE 75
[2024-11-01 20:21] VITALS: TEMP 36.6
[2024-11-02 00:38] VITALS: BP 114/61; PULSE 70; TEMP 36.7
[2024-11-02] MEDS: CEFAZOLIN SODIUM/DEXTROSE,ISO 1 GM/50 ML PREMIX IV ×2 (00:45→08:38)
[2024-11-02] MEDS: 0.9 % SODIUM CHLORIDE 1,000 ML 150 ML IV (03:48)
[2024-11-02 05:09] VITALS: TEMP 36.4
[2024-11-02 05:10] VITALS: BP 147/73; PULSE 57
[2024-11-02] MEDS: OXYCODONE HCL/ACETAMINOPHEN 5MG/325MG 2 TAB PO (05:30)
[2024-11-02 08:40] VITALS: BP 146/76; PULSE 57; TEMP 36.1
[2024-11-02] MEDS: CYCLOBENZAPRINE HCL 10 MG TABLET 5 MG PO (08:51)
== END 2024-11-02 12:30 | disposition home or self-care (01) ==
PROVIDERS: Admitting Provider Obstetrics & Gynecology; PCP Family Medicine; Visit Provider Obstetrics & Gynecology
DX: O26.893 Other specified pregnancy related conditions, third trimester (principal); R10.9 Unspecified abdominal pain; Z3A.30 30 weeks gestation of pregnancy
CPT/HCPCS: 36415; 76705; 76775; 76815; 76817; 82150; 82565; 83690; 84450; 84460; 84520; 84550; 85007; 85027; 96365; 96375; 96376; G0378; G0379; J0690; J2300; J2405